=== PATIENT | male | born 1960 | race Caucasian/White ===

== ENCOUNTER 2017-11-19 10:09 | Inpatient (IN) ==
[2017-11-19] MEDS ORDERED: Heparin 10,000 UNITS/10 ML Vial (for IV use) IV.PUSH STA (10:31)
[2017-11-19] MEDS ORDERED: Sod Chloride 0.9% Inj 1,000 ML IV.SIG SCH (10:45)
--- NOTE | 2017-11-19 10:47 | XR ---
EXAM DATE: 11/19/2017 10:41 AM EDT AGE/SEX: 57 years / Male INDICATIONS: STEMI ALERT. CLINICAL DATA: This is the patient's initial encounter. Patient reports that signs and symptoms have been present for 1 day and indicates a pain score of 5/10. MEDICAL/SURGICAL HISTORY: . Unable to obtain. . Unable to obtain. COMPARISON: No prior exams available for comparison. FINDINGS: Cardiac silhouette is mildly enlarged. Vasculature is satisfactory. There is slight diffuse interstit ial prominence which may be chronic. No evidence of focal alveolar consolidation or pleural effusion. CONCLUSION: Fairly well compensated mild cardiomegaly Electronically signed by: Alessandro Shen MD 11/19/2017 10:45 AM EDT
--- NOTE | 2017-11-19 10:50 | ED ---
HPI General Chief complaint: Chest Pain Stated complaint: sob/pain upper jaw/back/rt arm Time Seen by Provider: 11/19/17 10:31 Source: patient Mode of arrival: ambulatory Limitations: no limitations History of Present Illness HPI narrative: 57yo M with PMH of HTN and cig smoking here with c/o chest pain since yesterday. Chest pain is now radiated to bilateral neck and associated with sob. Denies any fever, n/v, abdominal pain, focal weakness or numbness. Pt took full dose aspirin yesterday. Denies any history of [place]. Related Data Home Medications Medication Instructions Recorded Confirmed Unable to Obtain Home Meds 11/19/17 11/19/17 Allergies Allergy/AdvReac Type Severity Reaction Status Date / Time No Known Allergies Allergy Uncoded 01/23/12 16:21 Review of Systems ROS: all other systems reviewed are negative [facility] Medical History Medical History Hypertension (Acute) Social History Social History Substance History: No History of Abuse Smoking Status: Current every day smoker Tobacco Type: Cigarettes How Often Do You Have a Drink Containing Alcohol: Never Recent Travel in [facility] within the Last 8 Weeks: No Recent Out of Country Travel within the Last 8 Weeks: No Immunization History Tetanus Immunization: Unable to Assess Hx Influenza Vaccine This Season: Unable to Assess Exam Narrative Exam Narrative: GENERAL: 57yo M in mild distress. SKIN: Focused skin assessment warm/dry. HEAD: Atraumatic. Normocephalic. EYES: Pupils equal and round. No scleral icterus. No injection or drainage. ENT: No nasal bleeding or discharge. Mucous membranes pink and moist. NECK: Trachea midline. No JVD. CARDIOVASCULAR: Regular rate and rhythm. No murmur appreciated. RESPIRATORY: No accessory muscle use. Clear to auscultation. Breath sounds equal bilaterally. GASTROINTESTINAL: Abdomen soft, non-tender, nondistended. MUSCULOSKELETAL: No obvious deformities. No clubbing. No cyanosis. No edema. NEUROLOGICAL: Awake and alert. No obvious cranial nerve deficits. Motor grossly within normal limits in all extremities. Sensation intact and equal. Normal speech. PSYCHIATRIC: Appropriate mood and affect; insight and judgment normal. Course Initial Documented Vital Signs Temperature 98.6 F 11/19/17 10:15 Pulse Rate 102 H 11/19/17 10:15 Respiratory Rate 20 11/19/17 10:15 Blood Pressure 114/68 11/19/17 10:15 Pulse Oximetry 95 11/19/17 10:15 Last Documented Vital Signs Temperature 98.6 F 11/19/17 10:15 Pulse Rate 102 H 11/19/17 10:15 Respiratory Rate 20 11/19/17 10:15 Blood Pressure 114/68 11/19/17 10:15 Pulse Oximetry 98 11/19/17 10:40 Critical Care Time Critical Care Time: Yes Total Critical Care Time: 35 Attestation: Aggregate critical care time was 35 minutes. Time to perform other separately billable procedures was not included in the critical care time. My time did not include minutes spent treating any other patients simultaneously or on activities that did not directly contribute to the patient's treatment. The services I provided to this patient were to treat and/or prevent clinically significant deterioration that could result in: cardiovascular collapse or . I provided critical care services requiring my management, as noted below: Chart data review, documentation time, medication orders and management, vital sign assessments/reviewing monitor data, ordering and reviewing lab tests, ordering and interpreting/reviewing x-rays and diagnostic studies, care of the patient and discussion of the patient with the admitting physicians. Medical Decision Making MDM Narrative Medical decision making narrative: 57yo M with chest pain since yesterday that is now more in his bilateral neck. Pt did just come back from flight yesterday but has marked ST elevation in EKG. STEMI alert called and discussed with Dr. Kahn. Pt given aspirin, heparin bolus. Labs reviewed, leukocytosis at 15.9. H/H normal. BUN/creatinine elevated at 29/1.80. CXR showed fairly well compensated mild cardiomegaly. Pt transported emergently to [facility] cardiac agriculture laboratory technician. Differential Diagnosis Differential Diagnosis: STEMI Lab Data Result diagrams: 11/19/17 10:32 11/19/17 10:32 Lab Results 11/19/17 11/19/17 11/19/17 Range/Units 10:32 10:32 10:32 CBC w Diff WBC (4.0-11.0) th/mm3 RBC (4.50-5.90) mil/mm3 Hgb (13.0-17.0) gm/dL Hct (39.0-51.0) % MCV (80.0-100.0) fL MCH (27.0-34.0) pg MCHC (32.0-36.0) % RDW (11.6-17.2) % Plt Count (150-450) th/mm3 MPV (7.0-11.0) fL Neut % (Auto) (16.0-70.0) % Lymph % (Auto) (9.0-44.0) % Meigs % (Auto) (0.0-8.0) % Eos % (Auto) (0.0-4.0) % Baso % (Auto) (0.0-2.0) % Neut # (Auto) (1.8-7.7) th/mm3 Lymph # (Auto) (1.0-4.8) th/mm3 Meigs # (Auto) (0.0-0.9) th/mm3 Eos # (Auto) (0.0-0.4) th/mm3 Baso # (Auto) (0.0-0.2) th/mm3 WBC Differential Differential Comment PT 10.6 (9.8-11.6) sec INR 1.0 Ratio APTT 30.4 H (24.3-30.1) sec Sodium 139 (136-145) meq/L Potassium 4.7 (3.5-5.1) meq/L Chloride 107 (98-107) meq/L Carbon Dioxide 25.3 (21.0-32.0) meq/L Anion Gap 7 (5-15) meq/L BUN 29 H (7-18) mg/dL Creatinine 1.80 H (0.60-1.30) mg/dL Estimated GFR 39 L (>89) mL/min Random Glucose 129 H (74-106) mg/dL Calcium 9.8 (8.5-10.1) mg/dL Magnesium 2.2 (1.5-2.5) mg/dL Total Creatine Kinase 1461 H (39-308) U/L CK-MB (CK-2) 94.5 H (0.5-3.6) ng/mL CK-MB (CK-2) % 6.5 H* (0.0-4.0) % Troponin I Greater than 40.00 H* (0.02-0.05) ng/mL B-Natriuretic Peptide 468 H (0-100) pg/mL Blood Type Antibody Screen MTS Gel Crossmatch 11/19/17 11/19/17 Range/Units 10:32 12:20 CBC w Diff Auto diff final WBC 15.9 H (4.0-11.0) th/mm3 RBC 5.28 (4.50-5.90) mil/mm3 Hgb 16.3 (13.0-17.0) gm/dL Hct 48.1 (39.0-51.0) % MCV 91.2 (80.0-100.0) fL MCH 30.9 (27.0-34.0) pg MCHC 33.9 (32.0-36.0) % RDW 12.6 (11.6-17.2) % Plt Count 184 (150-450) th/mm3 MPV 8.2 (7.0-11.0) fL Neut % (Auto) 86.0 H (16.0-70.0) % Lymph % (Auto) 4.6 L (9.0-44.0) % Meigs % (Auto) 9.2 H (0.0-8.0) % Eos % (Auto) 0.0 (0.0-4.0) % Baso % (Auto) 0.2 (0.0-2.0) % Neut # (Auto) 13.7 H (1.8-7.7) th/mm3 Lymph # (Auto) 0.7 L (1.0-4.8) th/mm3 Meigs # (Auto) 1.5 H (0.0-0.9) th/mm3 Eos # (Auto) 0.0 (0.0-0.4) th/mm3 Baso # (Auto) 0.0 (0.0-0.2) th/mm3 WBC Differential . Differential Comment . PT (9.8-11.6) sec INR Ratio APTT (24.3-30.1) sec Sodium (136-145) meq/L Potassium (3.5-5.1) meq/L Chloride (98-107) meq/L Carbon Dioxide (21.0-32.0) meq/L Anion Gap (5-15) meq/L BUN (7-18) mg/dL Creatinine (0.60-1.30) mg/dL Estimated GFR (>89) mL/min Random Glucose (74-106) mg/dL Calcium (8.5-10.1) mg/dL Magnesium (1.5-2.5) mg/dL Total Creatine Kinase (39-308) U/L CK-MB (CK-2) (0.5-3.6) ng/mL CK-MB (CK-2) % (0.0-4.0) % Troponin I (0.02-0.05) ng/mL B-Natriuretic Peptide (0-100) pg/mL Blood Type A Positive Antibody Screen Negative MTS Gel Crossmatch See Detail Imaging Data Radiologist's impression: Chest X-Ray 11/19/17 10:32 CONCLUSION: Fairly well compensated mild cardiomegaly ECG Data EKG Prior to Arrival: No Attestation: I personally reviewed and interpreted this ECG as follows: Interpretation: EKG showed marked elevation in V2-V6. ST depression in inferior leads. Discharge Plan Discharge Disposition Patient Disposition: 30 Still Patient Discharge Details Diagnosis: ST elevation myocardial infarction (STEMI) Physicians Team ED Provider: Alba Lindo Primary Care Provider: Odilon Hernandez Attending Provider: Osbaldo Kahn Discharge Interventions Interventions: ED Discharge Assessment Last Done: 11/19/17 10:53 Status ED Status: Admitted Patient Discharge Information Discharge Date/Time: 11/19/17 11:00
[2017-11-19 10:51] LABS: Baso % (Auto) 0.2 % (0.0-2.0); Chloride 107 meq/L (98-107); Hematocrit 48.1 % (39.0-51.0); Hemoglobin 16.3 gm/dL (13.0-17.0); Lymph # (Auto) 0.7 th/mm3 (1.0-4.8); Lymph % (Auto) 4.6 % (9.0-44.0); Mean Corpuscular HGB Conc 33.9 % (32.0-36.0); Mean Corpuscular Hemoglobin 30.9 pg (27.0-34.0); Mean Corpuscular Volume 91.2 fL (80.0-100.0); Mean Platelet Volume 8.2 fL (7.0-11.0); Mono # (Auto) 1.5 th/mm3 (0.0-0.9); Mono % (Auto) 9.2 % (0.0-8.0); Neut # (Auto) 13.7 th/mm3 (1.8-7.7); Platelet Count 184 th/mm3 (150-450); Potassium 4.7 meq/L (3.5-5.1); Red Blood Count 5.28 mil/mm3 (4.50-5.90); Red Cell Distribution Width 12.6 % (11.6-17.2); Sodium 139 meq/L (136-145); White Blood Count 15.9 th/mm3 (4.0-11.0)
[2017-11-19 10:54] LABS: Anion Gap 7 meq/L (5-15); Calcium 9.8 mg/dL (8.5-10.1); Carbon Dioxide 25.3 meq/L (21.0-32.0)
[2017-11-19] MEDS ORDERED: fentaNYL Citrate Inj 100 MCG/2 ML Ampul ONE ×3 (10:54→15:00)
[2017-11-19] MEDS ORDERED: Heparin/NS PF Inj 500 ML ONE (10:54)
[2017-11-19 10:55] LABS: Blood Urea Nitrogen 29 mg/dL (7-18); Glucose,Random 129 mg/dL (74-106); Magnesium 2.2 mg/dL (1.5-2.5)
[2017-11-19] MEDS ORDERED: Heparin 10,000 UNITS/10 ML Vial (for IV use) ONE ×2 (10:55→13:06)
[2017-11-19 10:56] LABS: Activated Partial Thrombo Time 30.4 sec (24.3-30.1); Prothrombin Time 10.6 sec (9.8-11.6)
[2017-11-19 10:58] LABS: Glomerular Filtration Rate 39 mL/min (>89)
[2017-11-19] MEDS ORDERED: Lidocaine PF 1% Inj 30 ML Vial ONE (11:05)
[2017-11-19 11:13] LABS: Creatine Kinase 1461 U/L (39-308)
[2017-11-19 11:25] LABS: Creatine Kinase MB 94.5 ng/mL (0.5-3.6)
[2017-11-19 11:31] LABS: CKMB Percent 6.5 % (0.0-4.0)
[2017-11-19] MEDS ORDERED: Tirofiban Inj 12,500 MCG/250 ML PLAST..BAG ONE (11:37)
[2017-11-19] MEDS ORDERED: Sodium Chlor 0.9% Inj 200 ML IV.SIG ONE (12:00)
[2017-11-19] MEDS ORDERED: Artificial Tears Opth Oint 3.5 GM Tube EACH EYE ONE (12:00)
[2017-11-19] MEDS ORDERED: Sodium Chlor 0.9% Inj 500 ML IV.SIG ONE ×2 (12:00)
[2017-11-19] MEDS ORDERED: Phenylephrine/NS 1000 MCG/10ML Syringe IV.PUSH ONE (12:00)
[2017-11-19] MEDS ORDERED: Protamine Sulfate Inj 250 MG/25 ML Vial IV.CONT ONE (12:00)
[2017-11-19] MEDS ORDERED: Nitroglycerin Drip Premix 50 MG/250 ML BOTTLE IV.SIG ONE (12:00)
[2017-11-19] MEDS ORDERED: Heparin - SQ 10,000 UNITS/ML Vial OTHER ONE (12:00)
[2017-11-19] MEDS ORDERED: Dexmedetomidine Inj 200 MCG/2 ML Vial IV.CONT ONE (12:00)
[2017-11-19] MEDS ORDERED: Calcium Chloride Inj 1 GM/10 ML Syringe IV.CONT ONE (12:00)
[2017-11-19] MEDS ORDERED: Norepinephrine Inj 4 MG/4 ML Ampul IV.CONT ONE (12:00)
[2017-11-19] MEDS ORDERED: Heparin - SQ 10,000 UNITS/ML Vial ONE (12:24)
[2017-11-19] MEDS ORDERED: ceFAZolin 2 GM Premix Inj 2 GM/50 ML PIGGYBACK IV.SIG ONE (12:24)
[2017-11-19] MEDS ORDERED: Insulin Regular (For Infusion) 100 UNIT in Sodium Chlor 0.9% Inj 99 ML IV.CONT PRN ×2 (12:42→17:13)
[2017-11-19] MEDS ORDERED: Sodium Chloride 0.9% Irr Bot 500 ML, ceFAZolin Inj 500 MG IRRIGATION SCH ×2 (12:45)
[2017-11-19] MEDS ORDERED: Sodium Chlor 0.9% Inj 77.5 ML, Papaverine Inj 60 MG, Nitroglycerin Inj 100 MCG, dilTIAZ... IRRIGATION SCH ×3 (12:45)
--- NOTE | 2017-11-19 13:03 | P.CON ---
History of Present Illness Service: CT Surgery Consult date: 11/19/17 Requesting Physician: Osbaldo Kahn Reason for Consult: STEMI, 2 vessel CAD Primary Care Provider: Odilon Hernandez MD Family Provider: Odilon Hernandez MD Chief Complaint: chest pain History of Present Illness: 57y/o male presents to the ED with chest pain. ECG shows st elevation in LAD distribution. STEMI alert called and he was emergently taken to the dental laboratory technology teacher. LHC shows occluded LAD and significant disease in diagonal and LCx distribution. The LAD could not be crossed and I was called emergently for consideration of emergency CABG. Review of Systems unobtainable due to mental condition PMFSH - History History Provided By: Patient - Medical History Medical History: Medical History (Last Updated 11/19/17 @ 10:45 by Sharda Hauser RN) Hypertension - Tobacco History Tobacco Use In Past 30 Days: Yes Smoking Status: Current every day smoker Tobacco Type: Cigarettes - Alcohol History How Often Do You Have a Drink Containing Alcohol: Never - Substance Use History Substance History: No History of Abuse - Travel History Recent Travel in the [place] Within the Last 8 Weeks: No Recent Travel Out of the Country Within the Last 8 Weeks: No - Immunization History Tetanus Immunization: Unable to Assess Hx Influenza Vaccine This Season: Unable to Assess Medications and Allergies Active Medications: Active Medications Sodium Chloride 77.5 ml/Papaverine HCl 60 mg/Nitroglycerin 100 mcg/Diltiazem HCl 100 mg 0 ml IRRIGATION MOLDING MANAGER KATHIA Stop: 11/25/17 12:42 Sodium Chloride 500 ml/ (Cefazolin Sodium 500 mg) 0 ml IRRIGATION MOLDING MANAGER [facility] Stop: 11/25/17 12:42 Sodium Chloride (Ns Inj) 1,000 mls @ 30 mls/hr IV.SIG .Q24H KATHIA Stop: 11/20/17 10:44 Last Admin: 11/19/17 10:38 Dose: 30 mls/hr Insulin Human Regular 100 unit (/ Sodium Chloride) 100 mls @ 3 mls/hr IV.CONT TITRATE PRN; Protocol PRN Reason: See Protocol Sodium Chloride (Ns Flush) 2 ml IV.FLUSH PRN PRN PRN Reason: FLUSH AFTER USING IV ACCESS Allergies Allergy/AdvReac Type Severity Reaction Status Date / Time No Known Allergies Allergy Uncoded 01/23/12 16:21 Home Medications Medication Instructions Recorded Confirmed Type Unable to Obtain Home Meds 11/19/17 11/19/17 History Physical Exam Vital signs: Vital Signs 11/19/17 10:15 11/19/17 10:25 11/19/17 10:40 Temperature 98.6 F Pulse Rate 102 H Respiratory Rate 20 Blood Pressure 114/68 Pulse Oximetry 95 100 98 Intake & Output 11/18/17 11/19/17 11/19/17 18:59 06:59 18:59 Weight 109 kg - Constitutional moderate distress - Routine HEENT Exam Head: Present: normocephalic, atraumatic Eye: Present: EOMI, PERRL - Routine Neck Exam Present: supple - Routine Respiratory Exam Present: decreased breath sounds - Routine Cardiovascular Exam Present: RRR - Routine Abdominal Exam Present: soft, normoactive bowel sounds - Routine Extremities Exam Present: pulses intact - Routine Skin Exam Present: intact - Routine Neurological Exam Present: alert, oriented X3, CN II-XII intact Assessment and Plan - Assessment (1) CAD (coronary artery disease) Code(s): I25.10 - Atherosclerotic heart disease of [place] coronary artery without angina pectoris Status: Acute (2) ST elevation myocardial infarction (STEMI) Code(s): I21.3 - ST elevation (STEMI) myocardial infarction of unspecified site Status: Acute (3) Hypertensive kidney disease with stage 3 chronic kidney disease Code(s): I12.9 - Hypertensive chronic kidney disease with stage 1 through stage 4 chronic kidney disease, or unspecified chronic kidney disease; N18.3 - Chronic kidney disease, stage 3 (moderate) Status: Acute - Plan Recommend emergency CABG to especially restore flow in the LAD. Risks of CABG in this situation are as follows: Risk Model and Variables - STS Adult Cardiac Surgery Database Version 2.81 RISK SCORES About the STS Risk Calculator Procedure: CAB Only Risk of Mortality: 1.92% Morbidity or Mortality: 21.32% Long Length of Stay: 6.619% Short Length of Stay: 44.609% Permanent Stroke: 0.945% Prolonged Ventilation: 15.105% DSW Infection: 0.704% Renal Failure: 5.976% Reoperation: 6.932% Plan for emergent CABG. (2) ST elevation myocardial infarction (STEMI) Qualifiers: Involved coronary artery: unspecified coronary artery Qualified Code(s): I21.3 - ST elevation (STEMI) myocardial infarction of unspecified site
[2017-11-19] MEDS ORDERED: Cardioplegic Irr Soln 2,000 ML IRRIGATION ONE (13:04)
[2017-11-19] MEDS ORDERED: Albumin Human 25% Inj 50 ML IV.SIG ONE (13:05)
[2017-11-19] MEDS ORDERED: Calcium Chloride Inj 1 GM/10 ML Syringe ONE (13:06)
[2017-11-19] MEDS ORDERED: Potassium Chlor 40 mEq Premix 80 MEQ/200 ML PIGGYBACK ONE (13:06)
--- NOTE | 2017-11-19 13:12 | MA ---
cc: Osbaldo Kahn MD DATE: 11/19/2017 PROCEDURES: Emergency left heart catheterization, selective coronary angiography, left ventriculography, unsuccessful percutaneous coronary intervention on a totally occluded proximal LAD. PROCEDURE NOTE: The patient was brought to the cardiac catheterization laboratory under emergency conditions in the midst of a suspected acute anterior ST elevation myocardial infarction. The right groin was prepped and draped as per policy and anesthetized with 1% lidocaine. Arterial access was obtained via the right femoral artery and a 6-Dominican sheath placed. Coronary arteriography was performed using 6-Dominican Didi, left 4.0 and right progressive catheters. Left ventriculography was done using a standard 6-Dominican pigtail. Attempted unsuccessful percutaneous intervention on the LAD was done as described below. There were no apparent immediate complications. HEMODYNAMIC DATA: Left ventricle 105 with an end diastolic pressure of 40, aorta 106/68 with a mean of 85. There was no significant transvalvular aortic gradient on pullback of the pigtail catheter. CORONARY ARTERIOGRAPHY: The left main has minimal luminal irregularities. The very proximal LAD has hazy, somewhat ulcerated up to 80% disease. Right after the takeoff of the first septal quality technician fiberglass, the proximal LAD is totally occluded. A small to medium-sized diagonal arising from the very proximal LAD has diffuse up to 70% disease in its mid portion. The left circumflex is a medium-sized vessel giving rise to a tiny first obtuse marginal and what appears to be a medium-sized branching second obtuse marginal. The second obtuse marginal is totally occluded in its mid portion with faint filling of the distal branches. The right coronary artery is a large dominant vessel, which is diffusely diseased probably up to 10% severity. There is suggestion that there is total occlusion of the very distal right coronary branches. Scant collaterals to the LAD are seen. LEFT VENTRICULOGRAPHY: Contrast injection of the left ventricle is somewhat suboptimal. There does appear to be an area of apical akinesis. Ejection fraction is roughly estimated at 35-40%. PERCUTANEOUS CORONARY INTERVENTION DESCRIPTION: Heparin 70 units/kg was administered. Using a 6-Dominican XB 3.5-guiding catheter the ostium of the left main was reengaged. We attempted to cross the total occlusion in the proximal LAD with a Prowater wire and then a Whisper wire without success. We then advanced a 2.0 x 10-mm Euphora balloon catheter to the distal tip of the Whisper wire to provide backup support. We were again unsuccessful in crossing the total occlusion. The wire seems to go into a more second diagonal direction. At this point, consultation was obtained from Dr. Jennifer Rojas for consideration of coronary artery bypass grafting. As the operating room was being mobilized, we attempted further to cross the total occlusion with a Whisper wire again and then a Fielder wire, again without success. The wire continued to traverse in a more diagonal direction. The guidewires were removed, as was the guiding catheter. CONCLUSIONS: 1. Severe 3-vessel coronary artery disease. 2. Right dominant system. 3. Status post unsuccessful percutaneous coronary intervention attempt on the proximal LAD due to inability to wire the total occlusion. 4. Suboptimal left ventriculogram. Probable small to moderate-sized area of apical akinesis. Ejection fraction is very roughly estimated at 35-40%. DISCUSSION: The patient will be referred for urgent coronary artery bypass grafting. Bypass grafts could be considered to the LAD, diagonal, and obtuse marginal. MD DAISY Conde/jae , 12:32 PM , 12:42 PM MTDTaras
--- NOTE | 2017-11-19 13:18 | CATHPROC ---
FNZ HIS Report Study Information Study Number Admission Scheduled Start Study Start [id number] Nov 19 2017 10:09AM 11/19/2017 Nov 19 2017 10:46AM [place] Service Cath Endovascular Study Admit Source Facility Department Transfer in from another acute care facility [facility] - Printing Machine Mechanic Physician and Clinical Staff Initial Osbaldo Mcrae Applied Behavior Science Specialist Samy Sanz RN Applied Behavior Science Specialist Francisco Childs RN Other cathlab, cathlab Recorder Lavelle Lima RCIS(BS) Yu Vega RCIS TECHGentry Procedures Performed Procedure Location (Site) Vessel Name Angiogram LV LV Ventricle Coronary Angiograms LCA Left Coronary Coronary Angiograms RCA Right Coronary L Heart Cath Wire insertion Fem Art (right) Femoral Art Wire insertion LAD Prox Left Coronary Equipment Time Machine Bunch Maker Description Size Mfg Part Number Used/Scraped [id number] 12:14 [employer] WIRE, ASAHI FIELDER XT 190CM 180CM Used *[id number] 11:37 [employer] WIRE, ASAHI PROWATER 180CM 180CM Used *[id number] WIRE, WHISPER W/HYDROCOAT [id number] 11:42 [employer] 190CM Used 190CM *[id number] TRANSDUCER, TRUWAVE [id number] 10:47 MOY MCLEOD * Used W/STOCKCOCK *[id number] [id number] *[id number] [id number] *[id number] [id number] *[id number] *[id number] *[id number] 10:47 [employer] BLANKET,WARM AIR CCL * Used *[id number] 10:47 [employer] PACK, CCL CUSTOM * Used *[id number] 10:47 [employer]ure PACER PEN, SKIN DUAL W/ RULER * Used *[id number] 11:45 MED[employer] BALLOON, 2.0 X 10MM EUPHORA 10MM Used *[id number] 10:47 [email or web address] MEDICAL SHEATH, FR6.5 PRELUDE 11CM FR 6.5 038ACT Used *[id number] 10:47 [email or web address] MEDICAL WIRE, 3MMJ .035 180CM 180CM Used *[id number] 10:47 [facility] MANIFOLD, 4 PORT * Used *[id number] 10:47 [employer] OMNIPAQUE, 350 MG, 150ML 150ML [id number] Used 12:02 [employer]ED OMNIPAQUE, 350 MG, 50ML 50ML [id number] Used WIRE, RUNTHROUGH NS FLOPPY 25-1013 12:11 [employer] MEDICAL 300CM Used .014 300CM *[id number] History: Risk Factors Family History of Hypertension Dyslipidemia Previous LA Previous Heart Failure Premature CAD Yes Yes No No No Prior Valve Prior PCI Prior CABG Surgery No No No Cerebrovascular Peripheral Artery Chronic Lung On Dialysis Diabetes Disease Disease Disease No No No No No History: Symptoms/Diagnosis Selection Items Chest pain SOB History: Stress Tests Stress or Imaging Studies Performed No History: Other Disease Selection Items HTN History: Other Current Smoker Method Packs a Day Years Used Pack Years Yes Cigarettes 1 42 42 Labs Hgb (g/dl) Hct (%) WBC (l/cumm) Platelets (thousands) 11.60-17.00 35.00-51.00 4.00-11.00 150.00-450.00 16.3 48.1 15.9 184 Glucose (mg/dl) Creatinine (mg/dl) 74.00-106.00 0.50-1.30 129 1.0 Na (meq/l) K (meq/l) 136.00-145.00 3.50-5.10 139 4.7 INR (PTT:PT) 0.90-1.10 1 Troponin I (ng/ml) CPK-MB (ng/ML) 0.02-0.05 0.50-3.60 40 6.5 Medication Medication Total Dose (Bolus/Oral) Medication Total Dosage/Unit 1% XYLOCAINE 20 mL FENTANYL 100 mcg HEPARIN 6200 units VERSED 3 mg Medications (Bolus/Oral) Medication Time Given Dosage/Unit Administered By Reason VERSED 11/19/2017 11:29:00 AM 1 mg Samy Sanz 1 mg VERSED given in lab by Samy Sanz, RN in Left Antecubital via Peripheral IV. Ordered by Osbaldo Kahn. 1% XYLOCAINE 11/19/2017 11:29:10 AM 20 mL Osbaldo Kahn 20 mL 1% XYLOCAINE given in lab by Osbaldo Kahn in Right Groin via Subcutaneous. FENTANYL 11/19/2017 11:29:45 AM 50 mcg Yvon Samy 50 mcg FENTANYL given in lab by Samy Sanz RN in Left Antecubital via Peripheral IV. Ordered by Glenn. Pamela VERSED 11/19/2017 11:30:09 AM 2 mg Samy Sanz 2 mg VERSED given in lab by Samy Sanz RN in Left Antecubital via Peripheral IV. Ordered by Osbaldo Kahn. HEPARIN 11/19/2017 11:36:04 AM 6200 units Yvon, Samy 6200 units HEPARIN given in lab by Samy Sanz RN in Left Antecubital via Peripheral IV. Ordered by Osbaldo Kahn. FENTANYL 11/19/2017 12:06:33 PM 50 mcg Yvon, Samy 50 mcg FENTANYL given in lab by Samy Sanz RN in Left Antecubital via Peripheral IV. Ordered by Osbaldo Santiago. Medication (Drip) Medication Time Given Dosage/Unit Concentration/Unit Diluent (ml) Solutio n IV Solutions 11/19/2017 11:16:16 AM 0 mL (IV) 500 NaCl .9 Patient arrived on IV Solutions given by david hernandez in Left Antecubital via Peripheral IV. Pump /Drip Flow = 20 ml/hr using NaCl .9. Ordered by Osbaldo Kahn. Initial Case Assessment Cardiovascular HR Rhythm NIBP Chest Pain 98 stemi 138/82 0 Edema Present Skin color Skin None Normal Warm Dry Circulatory - Right Pulses Dorsalis Pedis Femoral 1 2 Scale (0,1,2,3,4,d) Circulatory - Left Pulses Dorsalis Pedis Femoral 1 2 Scale (0,1,2,3,4,d) Neurological State Oriented to time-place- Alert Moves all extremities person Respiration - General Respiration Rate SpO2 (%) (B/min) 15 95 Final Case Assessment Cardiovascular HR Rhythm NIBP Chest Pain 98 stemi 134/77 0 Edema Present Skin color Skin None Normal Warm Dry Circulatory - Right Pulses Dorsalis Pedis Femoral 1 2 Scale (0,1,2,3,4,d) Circulatory - Left Pulses Dorsalis Pedis Femoral 1 2 Scale (0,1,2,3,4,d) Neurological State Oriented to time-place- Alert Moves all extremities person Respiration - General Respiration Rate SpO2 (%) (B/min) 15 95 Chronological Log Time Study Chronological Log 10:30:02 Emergency Room notified that Printing Machine Mechanic is ready. 11:16:02 Patient arrived via Bed. 11:16:03 Patient Name, D.O.B, / Armband Verified By R.N. 11:16:03 Consent signed by the physician and the patient and verified by the Printing Machine Mechanic staff. 11:16:04 Pre-op and post- op instructions given; patient acknowledges understanding of instructions. 11:16:06 Presedation assessment performed by Printing Machine Mechanic RN. 11:16:09 Patient has been NPO for More than 6Hrs. 11:16:09 Skin Breakdown- none per patient 11:16:10 Patient Warmer Placed on the Table. 11:16:10 Rose Marie Prominences Protected 11:16:15 A # 18 IV was noted in the Antecubital (left). Grade = 0 Patient arrived on IV Solutions given by cathlab, cathlab in Left Antecubital via Peripheral IV . Pump/Drip Flow = 20 11:16:16 ml/hr using NaCl .9. Ordered by Osbaldo Kahn. 11:16:17 History and physical on the chart or being dictated. Vitals capture started with the following parameters, Patient=Adult, Interval=5 min, Initial Pr nxdjna=487 mmHg, 11:17:29 Deflation Rate=5 mmHg, Cuff placed on Left Arm 11:18:10 UB=317 bpm, WKII=795/82 mmhg, NnF9=056 %, Resp=15 B/min, Pain=0, Nathanael=10, [place]=2 Assessment: Initial Case, HR=98 BPM, Rhythm=stemi, JIBE=195/82 mmhg, Chest Pain=0, Edema=None, Color=Normal, Skin = Warm, Dry Right Pulses: Sergey Ped=1, Femoral=2 11:19:24 Left Pulses: Sergey Ped=1, Femoral=2 Neurological: State=Alert, Ox3, TONG Respiration: Resp=15 B/min, SpO2=95 % 11:20:30 Reference ECG taken 11:20:34 Bilateral groins prepped with 2% chlorhexidine, and draped after a 3 minute waiting time. 11:21:17 MD paged 11:21:50 MD responded 11:22:42 Pressure channel 1 zeroed. 11:23:05 YQ=884 bpm, NUZK=183/79 mmhg, SpO2=98.0 %, Resp=14 B/min, Pain=0, Nathanael=10, Mon[place]=2 11:26:24 MD arrived. :: Immediate Presedation assesment performed by physician. 11:28:02 XC=841 bpm, GIMR=496/87 mmhg, SpO2=99.0 %, Resp=14 B/min, Pain=0, Nathanael=10, [place]=2 Time Out. Correct patient, correct procedure, correct physician, labs, allergies, and equipment verified with laborer livestock :: team present. Fire risk assesment completed (see hard stop sheet for coding). Time Out Conc urred by MD and individual staff in procedure. 11:29:00 1 mg VERSED given in lab by Samy Sanz RN in Left Antecubital via Peripheral IV. Ordered by Osbaldo Kahn. 11:29:09 Case Start 11:29:10 20 mL 1% XYLOCAINE given in lab by Osbaldo Kahn in Right Groin via Subcutaneous. 11::45 50 mcg FENTANYL given in lab by Samy Sanz RN in Left Antecubital via Peripheral IV. Ord ered by Osbaldo Kahn. 11:30:09 2 mg VERSED given in lab by Samy Sanz RN in Left Antecubital via Peripheral IV. Ordered by Osbaldo Kahn. 11::22 Access site was Right Femoral Artery. ::29 A SHEATH, FR6.5 PRELUDE 11CM FR 6.5 was advanced into the Fem Art (right) using the Didi technique. : Activated Clotting Time Drawn A JL 4.0 INFINITI CATHETER FR 6 was advanced over a wire. OMNIPAQUE, 350 MG, 150ML 150ML was us ed for :43 injections. 11:31:17 The LCA was injected and visualized at various angles. OMNIPAQUE, 350 MG, 150ML 150ML used . : Activated Clotting Time Drawn Recorded Pressure: Ao, HR=71, Condition=Condition 1 11:32:40 (Aorta) Ao 99/69/83 11:33:07 HR=22 bpm, KPYK=265/83 mmhg, SpO2=97.0 %, Resp=14 B/min, Pain=0, Nathanael=10, Mon[place]=2 11:34:12 Catheter was removed A 3DRC INFINITI CATHETER FR 6 was advanced over a wire. OMNIPAQUE, 350 MG, 150ML 150ML was used for 11:34:13 injections. 11:34:48 ACT (Normal Range 90-180) = 185 11:35:17 The RCA was injected and visualized at various angles. OMNIPAQUE, 350 MG, 150ML 150ML used . 11:35:52 Catheter was removed 11:36:04 6200 units HEPARIN given in lab by Samy Sanz RN in Left Antecubital via Peripheral IV. Ordered by Osbaldo Kahn. A XB 3.5 GUIDE CATHETER FR 6 was advanced over a wire. OMNIPAQUE, 350 MG, 150ML 150ML was used for 11:36:30 injections. 11:37:17 A WIRE, ASAHI PROWATER 180CM 180CM was inserted via Fem Art (right). 11:38:08 HR=85 bpm, TGMU=363/80 mmhg, SpO2=97.0 %, Resp=14 B/min, Pain=0, Nathanael=10, Mon[place]=2 11:42:35 A WIRE, WHISPER W/HYDROCOAT 190CM 190CM was inserted via Fem Art (right). 11:43:07 HR=86 bpm, DSOH=865/80 mmhg, SpO2=92 %, Resp=15 B/min, Pain=0, Nathanael=10, Mon[place]=2 11:43:46 Prowater Wire removed A BALLOON, 2.0 X 10MM EUPHORA 10MM was inserted over WIRE, WHISPER W/HYDROCOAT 190CM 190CM via the 11:45:29 Fem Art (right). 11:48:06 HR=56 bpm, BTLR=317/78 mmhg, SpO2=98.0 %, Resp=14 B/min, Pain=0, Nathanael=10, [place]=2 11:53:07 HR=42 bpm, PKTY=469/77 mmhg, SpO2=99.0 %, Resp=15 B/min, Pain=0, Nathanael=10, [place]=2 11:58:08 HR=97 bpm, WUYL=313/85 mmhg, SpO2=97.0 %, Resp=14 B/min, Pain=0, Nathanael=10, Mon[place]=2 12:01:17 Balloon Removed. 12:01:22 Wire removed 12:01:27 Catheter was removed Recorded Pressure: LV, HR=73, Condition=Condition 1 12:01:38 (Left Ventricle) LV 101/20/40 A PIGTAIL STR INFINITI CATHETER FR 6 was advanced over a wire. OMNIPAQUE, 350 MG, 150ML 150ML w as used for 12::38 injections. 12:01:49 The LV was injected at 12 cc/sec for a total of 32. OMNIPAQUE, 350 MG, 50ML 50ML used. 12:03:11 HR=71 bpm, LVLJ=030/74 mmhg, SpO2=96.0 %, Resp=15 B/min, Pain=0, Nathanael=10, Monaco=2 Recorded Pressure: LV, Ao, MB=940, Condition=Condition 1 12:03:34 (Left Ventricle) LV 105/21/41, (Aorta) Ao 106/68/85 12:03:45 Catheter was removed A XB 3.5 GUIDE CATHETER FR 6 was advanced over a wire. OMNIPAQUE, 350 MG, 150ML 150ML was used for :04: injections. 12:06:33 50 mcg FENTANYL given in lab by Samy Sanz, RN in Left Antecubital via Peripheral IV. Ord ered by Osbaldo Kahn. 12:08:08 HR=34 bpm, TWGI=448/88 mmhg, SpO2=81.0 %, Resp=15 B/min, Pain=0, Nathanael=10, Mon[place]=2 12:08:16 A WIRE, WHISPER W/HYDROCOAT 190CM 190CM was inserted via LAD Prox. 12:12:10 A WIRE, RUNTHROUGH NS FLOPPY .014 300CM 300CM was inserted via Fem Art (right). 12:13:14 HR=43 bpm, MNDT=561/75 mmhg, SpO2=85.0 %, Resp=15 B/min, Pain=0, Nathanael=10, [place]=2 12:13:53 Runthrough Wire removed 12:14:18 A WIRE, ASAHI FIELDER XT 190CM 180CM was inserted via Fem Art (right). 12:18:13 HR=54 bpm, GRMV=274/77 mmhg, SpO2=97.0 %, Pain=0, Nathanael=10, [place]=2 12:18:16 Wires removed 12:18:34 Catheter was removed 12:18:39 In the Fem Art (right) the SHEATH, FR6.5 PRELUDE 11CM FR 6.[address] by Osbaldo Kahn. 12:18:48 Case End (Physician broke scrub) Assessment: Final Case, HR=98 BPM, Rhythm=stemi, AFED=727/77 mmhg, Chest Pain=0, Edema=None, Color=Normal, Skin = Warm, Dry Right Pulses: Sergey Ped=1, Femoral=2 12:18:54 Left Pulses: Sergey Ped=1, Femoral=2 Neurological: State=Alert, Ox3, TONG Respiration: Resp=15 B/min, SpO2=95 % 12:19:06 Sterile dressing applied to site 12:19:07 No case complications noted. 12:19:07 Cine recording checked. 12:19:09 Bedside Report will be given. 12:19:12 A Left Heart Cath was performed. 12:23:08 HR=55 bpm, AZDY=668/83 mmhg, SpO2=98.0 %, Pain=0, Nathanael=10, Monaco=2 12:26:20 Activated Clotting Time Drawn 12:27:11 Blood drawn from Artieral sheath for type and cross. 12:28:09 HR=61 bpm, TGGT=464/85 mmhg, SpO2=98.0 %, Pain=0, Nathanael=10, Mon[place]=2 12:32:14 ACT (Normal Range 90-180) = 219 12:33:29 [facility] Patient taken straight to OR for Emergent CABG. End Study - Contrast Media Used In Study Contrast Total Opened (mL) Total Used (mL) Total Wasted (mL) Omnipaque 160 160 0 End Study - Maximum Contrast Load Max Contrast Load (mL) 545.5 End Study - Radiation Exposure Fluoro Time (minutes) 20.3 End Study - Patient Disposition Complications Transferred To Interventional Outcome No Operating Room unsuccessful
--- NOTE | 2017-11-19 13:47 | MB ---
cc: Osbaldo Kahn MD DATE: 11/19/2017 REASON FOR CONSULTATION: ST elevation myocardial infarction. HISTORY OF PRESENT ILLNESS: The patient is a 57-year-old white male with a history of hypertension, tobacco abuse, who was in his usual state of health up until 8:30 p.m. last night when he began to experience bilateral neck and substernal chest discomfort associated with shortness of breath without nausea or diaphoresis. The chest discomfort has persisted in a constant fashion until this morning when he presented to the [facility] at about 10:30. EKG showed evidence for acute anterior ST elevation myocardial infarction, so he was called as a STEMI alert. At this time, he states he has very little chest discomfort, but continues to have fairly severe upper mouth pain, which began last night as well. He continues to have mild to moderate dyspnea at rest. He denies dizziness, syncope, near syncope, palpitations, pedal edema, paroxysmal nocturnal dyspnea. PAST MEDICAL HISTORY: Hypertension. PAST SURGICAL HISTORY: Hernia repair. CARDIAC MEDICATIONS AT HOME: 1. Lisinopril. 2. Two other antihypertensive medications, which he cannot recall. ALLERGIES: NO KNOWN DRUG ALLERGIES. FAMILY HISTORY: There is no significant family history of early myocardial infarction. SOCIAL HISTORY: The patient smokes about a pack of cigarettes per day. He has been smoking since age 15. He denies alcohol abuse. REVIEW OF SYSTEMS: As in history of present illness, otherwise negative or noncontributory. He also denies headache, abdominal pain, melena, dyspepsia, bright red blood per rectum. PHYSICAL EXAMINATION: VITAL SIGNS: Blood pressure 100/64 with a pulse of 70, respirations 20. GENERAL: He is a well-developed, well-nourished white male, in no acute distress. NECK: Jugular venous pressure is normal. Carotid pulses are 2+ bilaterally and without bruits. CHEST: Reveals clear lungs hopkins. CARDIAC: He has a regular rhythm and rate without S3, S4, or murmur. ABDOMEN: He has a soft, nontender abdomen. Bowel sounds are present. There is no definite hepatosplenomegaly. EXTREMITIES: Reveals no clubbing, cyanosis or edema. Peripheral pulses are normal throughout. LABORATORY DATA: Includes WBC 15.9, hemoglobin 16.3, platelets 184. Potassium 4.7, BUN 29, creatinine 1.80. Troponin greater than 40.0. CK 1461. EKG shows sinus rhythm, marked anterior and lateral ST elevation, consider acute injury pattern, anterior and lateral Q-waves consistent with prior infarction. IMPRESSION: Anterior ST elevation myocardial infarction in this 57-year-old white male with a history of hypertension, tobacco abuse. At this time, he continues to have angina-like symptoms associated with marked ST elevation on EKG. On the other hand, I suspect his myocardial infarction began at least yesterday as his troponin is already greater than 40.0 and he has Q-waves across the precordial and high lateral leads. Because of his ongoing angina and ST elevation, he has been recommended emergency cardiac catheterization with possible percutaneous coronary intervention, the risks of which have been explained to him including, but not limited to: , myocardial infarction, stroke, arrhythmia, bleeding, infection, and renal failure. He agrees to proceed. RECOMMENDATIONS: 1. Emergency cardiac catheterization. 2. Eventually start beta dave therapy as his blood pressures allow. Hold off on KIRSTEN inhibitor and angiotensin receptor dave therapy with his renal insufficiency. 3. Check a fasting lipid profile. 4. Daily aspirin. MD DAISY Conde/chalo , 12:41 PM , 12:51 PM MELVIN
--- NOTE | 2017-11-19 15:24 | P.PNCV ---
- Note Subjective/Hospital Course: 57-year-old white male with a history of hypertension, tobacco abuse, who was in his usual state of health up until 8:30 p.m. last night when he began to experience bilateral neck and substernal chest discomfort associated with shortness of breath without nausea or diaphoresis. The chest discomfort has persisted in a constant fashion until this morning when he presented to the [place] [facility] at about 10:30. EKG showed evidence for acute anterior ST elevation myocardial infarction, so he was called as a STEMI alert. At this time, he states he has very little chest discomfort, but continues to have fairly severe upper mouth pain, which began last night as well. He continues to have mild to moderate dyspnea at rest. cath report : 1. Severe 3-vessel coronary artery disease, Right dominant system, Status post unsuccessful percutaneous coronary intervention attempt on the proximal LAD due to inability to wire the total occlusion, Suboptimal left ventriculogram. Probable small to moderate-sized area of apical akinesis. Ejection fraction is very roughly estimated at 35-40%. 11/19 for emergent surgery Objective: Vital Signs - 24 hr 11/19/17 10:15 11/19/17 10:25 11/19/17 10:40 Temperature 98.6 F Pulse Rate 102 H Respiratory Rate 20 Blood Pressure 114/68 Pulse Oximetry 95 100 98 Labs: Laboratory Results - last 12 hr 11/19/17 11/19/17 11/19/17 10:32 10:32 10:32 CBC w Diff WBC RBC Hgb Hct MCV MCH MCHC RDW Plt Count MPV Neut % (Auto) Lymph % (Auto) Newberry % (Auto) Eos % (Auto) Baso % (Auto) Neut # (Auto) Lymph # (Auto) Newberry # (Auto) Eos # (Auto) Baso # (Auto) WBC Differential Differential Comment PT 10.6 INR 1.0 APTT 30.4 H Sodium 139 Potassium 4.7 Chloride 107 Carbon Dioxide 25.3 Anion Gap 7 BUN 29 H Creatinine 1.80 H Estimated GFR 39 L Random Glucose 129 H Calcium 9.8 Magnesium 2.2 Total Creatine Kinase 1461 H CK-MB (CK-2) 94.5 H CK-MB (CK-2) % 6.5 H* Troponin I Greater than 40.00 H* B-Natriuretic Peptide 468 H Blood Type Antibody Screen MTS Gel Crossmatch 11/19/17 11/19/17 10:32 12:20 CBC w Diff Auto diff final WBC 15.9 H RBC 5.28 Hgb 16.3 Hct 48.1 MCV 91.2 MCH 30.9 MCHC 33.9 RDW 12.6 Plt Count 184 MPV 8.2 Neut % (Auto) 86.0 H Lymph % (Auto) 4.6 L Newberry % (Auto) 9.2 H Eos % (Auto) 0.0 Baso % (Auto) 0.2 Neut # (Auto) 13.7 H Lymph # (Auto) 0.7 L Newberry # (Auto) 1.5 H Eos # (Auto) 0.0 Baso # (Auto) 0.0 WBC Differential . Differential Comment . PT INR APTT Sodium Potassium Chloride Carbon Dioxide Anion Gap BUN Creatinine Estimated GFR Random Glucose Calcium Magnesium Total Creatine Kinase CK-MB (CK-2) CK-MB (CK-2) % Troponin I B-Natriuretic Peptide Blood Type A Positive Antibody Screen Negative MTS Gel Crossmatch See Detail Result Diagrams: 11/19/17 10:32 11/19/17 10:32 - Plan (2) ST elevation myocardial infarction (STEMI) (2) ST elevation myocardial infarction (STEMI) Qualifiers: Involved coronary artery: unspecified coronary artery Qualified Code(s): I21.3 - ST elevation (STEMI) myocardial infarction of unspecified site
--- NOTE | 2017-11-19 15:52 | P.DCO ---
- Diagnosis (2) ST elevation myocardial infarction (STEMI) - Speech Therapy Instructions: Heart and Vascular Surgery patients *Special attention to sternal dressing Mandatory frequency Assess and evaluation, 4 days in a row The next week 3X week 2 times a week for 4 weeks 1 time a week for 5 weeks Schedule Heart and Vascular patients for full 60 day certification period Initial visit Review Open Heart Surgery Discharge Instructions (Sternal precautions, Activity, Elastic hose, Incision care, Driving, Incentive spirometry, Smoking, [place], Work and other) Need Betadine to paint incision Medication reconciliation Importance of follow up care/ check on appointments Make calendar record temperature daily When to call [facility] at Home nurse, review instructions, phone list Incentive Spirometry, demonstration Visit 1- Begin discharge instruction for patient family and/ or caregiver using teach back method- Signs and symptoms of infection Disease characteristics Medicines and side effects Foods and nutrition/ appetite Infection control/ hand washing/ hygiene Visit 2- Continue teaching Discharge instructions- include additional information on smoking cessation , sternal dressing (sternal vac) Visit 3- Continue teaching- Cough and deep breathing, incision monitoring. Choose my plate Visit 4- Continue teaching- Discuss limitations Discuss how they are feeling Discuss progress toward goals Remaining visits- continue teaching and monitoring For any questions please call : Saturday 8am-5pm Heart & Vascular Surgery Office ( Dr. Yañez & Dr. Rojas), After Hours / Nights (5pm -8am) Weekends and Holidays Please call [facility] Unit ([facility]) Charge Nurse PREVENA Single Use Negative Wound Therapy System Caregiver Instruction Sheet 1. A Prevena dressing system was applied to the chest incision during surgery , to promote wound healing. It works via a suction device (negative pressure wound therapy) to remove low to moderate levels of exudate (drainage) and infectious materials. We recommend that the device stay in place for up to seven days, from day of surgery. 2. Day of Surgery____/ Day of Removal ___/ 3. The dressing should only be removed by a health healthcare technician. Please arrange removal of device to coincide with Home Health visit and or with Nursing staff at Rehab 4. If skin reddening or irritation of skin occurs, or excessive drainage, please notify the Cardiovascular Surgeons office at [phone]. 5. Light showering is permissible; however the pump should be disconnected and placed in safe location, where it will not get wet. The dressing should not be exposed to direct spray or submerged in water. No bath tub / shower only. Ensure the end of the tubing attached to the dressing is facing down so that water does not enter the top of the tube. 6. To remove Prevena dressing: press purple button to turn off device / remove the suction. Then disconnect the tubing from the pump. The fixation strips should be stretched away from the skin and the dressing lifted at one corner and peeled back until it has been fully removed. 7. After removal, it is ok to shower daily using liquid dial soap and clean wash cloth, rinse and pat dry, and leave incision open to air dry. For any concerns regarding Prevena dressing, and or wounds, please contact Sarah Lipscomb, patient navigator at [phone] or notify the Cardiovascular Surgeons office at [phone]. Incentive spirometry Q1 hr x 10, while awake, also use acapella device hourly whole awake Sternal Breast Bone Precautions: NO pushing or pulling, ( pt must use sternal pillow to support chest with all activities and with coughing ( takes up to 3 months breast bone to heal ) Daily incision care: ok to shower daily, no tub bath. Wash all incisions with liquid dial soap, clean wash cloth to each site, rinse and pat dry. Observe for any signs of infection, such as drainage which is dark yellow, ramires, green or foul smelling. Immediately report to the surgeon any drainage from the chest incision, or legs, and for any abnormal drainage from the chest tube sites. Notify surgeon if any temp >101.5 degrees F. When specialty dressing removed/ or if you do not have one, continue to shower daily as above, then rinse and pat incision dry and paint with betadine daily x 5 days. Allow steri strips to fall off if you have any. Avoid lotions, creams, salves, oils, etc. for the first month Please see attached forms for additional instructions regarding post Open Heart specialty wound vacuum dressings. ZAINA or Prevena , Dressing to be removed by Nursing staff on __11/26/[address] Rojas patients , please obtain CBC, BMP, PA & Lat CXR in 2 weeks, results to Dr. Rojas ( prescription will be given) ( ) (Tele: [phone]) , F/U appointment: as per [facility] instructions: PCP in 2 weeks, CV surgeon 2 weeks, [employer] 3-4 weeks For any questions regarding incisions/ dressing / meds / post op care or above Symptoms, Saturday 8am-5pm Heart & Vascular Surgery Office ( Dr. Yañez & Dr. Rojas), After Hours / Nights (5pm -8am) Weekends and Holidays Please call [facility] (CIC) Charge Nurse - Certification I have seen patient Lamonte Johnson on 11/19/17. My clinical findings support the need for the requested home health care services because: Deconditioned with increased weakness I certify that my clinical findings support that this patient is homebound because: Post-op weakness (2) ST elevation myocardial infarction (STEMI) Qualifiers: Involved coronary artery: unspecified coronary artery Qualified Code(s): I21.3 - ST elevation (STEMI) myocardial infarction of unspecified site
[2017-11-19] MEDS ORDERED: Dextrose 50% in Water 50 ML Vial IV.PUSH PRN (17:13)
[2017-11-19] MEDS ORDERED: Calcium Chloride Inj 1 GM/10 ML Syringe IV.PUSH PRN (17:13)
[2017-11-19] MEDS ORDERED: RESP: Racemic Epinephrine 2.25% 0.5 ML Neb NEB PRN (17:13)
[2017-11-19] MEDS ORDERED: Calcium Chloride Inj 1 GM in Sodium Chlor 0.9% Inj 100 ML IV.SIG PRN (17:13)
[2017-11-19] MEDS ORDERED: Potassium Chlor 20 mEq Premix 20 MEQ/100 ML PIGGYBACK IV.SIG PRN ×3 (17:13)
[2017-11-19] MEDS ORDERED: Post-op Orders (for Pharmacy) OTHER STA (17:13)
[2017-11-19] MEDS ORDERED: Magnesium Sulfate Inj 2 GM in Sodium Chlor 0.9% Inj 96 ML IV.SIG PRN ×4 (17:13)
[2017-11-19] MEDS ORDERED: Metoprolol Inj 5 MG/5 ML Vial IV.PUSH PRN (17:13)
[2017-11-19] MEDS ORDERED: Albumin Human 5% Inj 250 ML IV.SIG PRN (17:13)
[2017-11-19] MEDS ORDERED: hydrALAZINE HCl Inj 20 MG/ML Vial IV.PUSH PRN (17:13)
--- NOTE | 2017-11-19 17:28 | P.OP ---
- Preoperative Diagnosis (1) ST elevation myocardial infarction (STEMI) (2) CAD (coronary artery disease) - Postoperative Diagnosis (1) ST elevation myocardial infarction (STEMI) (2) CAD (coronary artery disease) Date of procedure: 11/19/17 Procedure: Emergency CABG x 3 GO to LAD - fair SVG to OM - poor SVG to D1 - poor EVH DUNIA Anesthesia: CECILIA Surgeon: Jennifer Rojas MD Clam Shovel Operator: Ivanna Andrade Pathology: other (left internal mammary lymph node) Operation and Findings: The patient was taken to the OR emergently due to STEMI and inability to open LAD. The risks, benefits, complications, treatment options, and expected outcomes were discussed with the patient. The possibilities of reaction to medication, pulmonary aspiration, perforation of viscus, bleeding, recurrent infection, the need for additional procedures, failure to diagnose a condition, and creating a complication requiring transfusion or operation were discussed with the patient. The patient concurred with the proposed plan, giving informed consent. The site of surgery properly noted/marked. The patient was taken to Operating Room, identified as @NAME@ and the procedure verified as Emergency CABG, EVH, DUNIA. A Time Out was held and the above information confirmed. Standard monitoring lines and Boland catheter were placed. General anesthesia was induced. The patient was prepped and draped in a sterile fashion. A median sternotomy was performed and electrocautery was used to obtain hemostasis. The left internal mammary artery was procured as a pedicle from the 7th rib to the 1st rib in the usual manner. Simultaneously left greater saphenous vein was procured from the left leg using a minimally invasive endoscopic technique. The vein was prepared for anastomosis and the leg wound was irrigated and closed in 2 layers. The pericardium was opened and a pericardial sling was created using interrupted 0 silk sutures. The patient was heparinized for cardiopulmonary bypass and the distal mammary pedicle was instrumented for anastomosis. The heart was instrumented for cardiopulmonary bypass in the usual manner. Antegrade blood cardioplegia was employed. The patient was placed on cardiopulmonary bypass. An aortic cross-clamp was applied and the heart was arrested using cold blood cardioplegia. Antegrade cardioplegia was administered after he each anastomosis. After adequate arrest, The OM1 was opened with a [place]ka blade and found to be a 1 millimeter poor target with diffuse disease. Saphenous vein was approximated to the OM1 artery using a running 7 0 Prolene suture. The graft was measured for length and orientation and the proximal anastomosis was constructed to the ascending aorta using a running 5 0 Prolene suture after creating an aortotomy with a 5 millimeter punch. The 1st diagonal artery was then opened with a [place] blade and found to be a 1 millimeter diffusely diseased poor target. Saphenous vein was approximated to the D1 artery using a running 7 0 Prolene suture. The graft was measured for length and orientation and was suspended from the pericardium. The distal LAD was opened with a [place] blade and found to be a 1.5 millimeter fair target. The left internal mammary artery was approximated to the LAD using a running 7 0 Prolene suture. The pedicle was attached to the epicardium using interrupted 5 0 silk suture. The patient was systemically rewarmed and received a hotshot dose of warm blood cardioplegia. The aorta was vented and the proximal anastomosis to the D1 graft was accomplished using a running 5 0 Prolene suture after creating an aortotomy was a 5 millimeter punch. The cross-clamp was removed and all proximal and distal anastomoses were examined for hemostasis. The patient was weaned from cardiopulmonary bypass. Protamine was given. There was no adverse reaction. Decannulation was carried out without incident. Wound was checked for hemostasis which was obtained using electrocautery. A 36 Surinamese mediastinal and 32 Surinamese left pleural chest tubes were placed and secured to the skin with 0 silk suture. The sternum was closed with stainless steel wire. The fascia was closed with 1. PDS. The subcutaneous tissue was closed using a running 2-0 Vicryl suture. The skin was closed with 4-0 Monocryl. Sterile dressings were placed. At the end of the operation, all sponge, instruments, and needle counts were correct. The patient was transferred to the CVICU in stable condition. Findings: Diffuse CAD, infarct zone noted distal anteroseptal LV with edema XC: 57 min CPB: 70 min Drains: mediastinal x 1 pleural x 1 Complications: none Disposition: to CVICU in stable condition
--- NOTE | 2017-11-19 18:38 | XR ---
EXAM DATE: 11/19/2017 6:29 PM EDT AGE/SEX: 57 years / Male INDICATIONS: Post op CABG. CLINICAL DATA: This is the patient's initial encounter. Patient reports that signs and symptoms have been present for 1 day and indicates a pain score of Nonresponsive. MEDICAL/SURGICAL HISTORY: Non-responsive. Non-responsive. COMPARISON: [facility], CHEST 1V SINGLE AP, 11/19/2017. . FINDINGS: A single AP portable supine view of the chest was obtained and demonstrates the patient is status pos t interval median sternotomy. An endotracheal tube is present with the tip approximately 2 cm above t he oralia. A nasogastric tube has been placed and is seen coursing through the esophagus the stomach. There is a left-sided chest tube in place with no pneumothorax. There is a left subclavian central v enous line with the tip projected over the superior vena cava. The heart size is mildly prominent. Ne w hazy opacity is present in the perihilar regions and both lung bases. There is no distinct effusion . CONCLUSION: 1. Status post median sternotomy for bypass grafting procedure. 2. Endotracheal tube and nasogastric tube place. 3. Central line and left-sided chest tube with no pneumothorax. 4. Cardiomegaly with new perihilar and bibasilar opacities which most characteristic of mild pulmona ry edema. Electronically signed by: Surya Rosario MD 11/19/2017 6:37 PM EDT
--- NOTE | 2017-11-19 18:48 | ECG ---
Date Performed: 11/19/2017 Time Performed: 10:24:43 PTAGE: 57 years EKG: Sinus rhythm POSSIBLE LEFT ATRIAL ENLARGEMENT ANTEROLATERAL MYOCARDIAL INFARCTION ACUTE GA NO PREVIOUS TRACING DOCTOR: Osbaldo Kahn Interpretating Date/Time 11/19/2017 18:47:13
[2017-11-19] MEDS ORDERED: Calcium Chloride Inj 1 GM/10 ML Syringe IV.PUSH ONE (19:00)
[2017-11-19] MEDS: fentaNYL Citrate Inj 100 MCG/2 ML Ampul IV.PUSH PRN (19:28)
[2017-11-19] MEDS: Amiodarone 200 MG Tablet PO SCH (21:43)
[2017-11-20] MEDS: fentaNYL Citrate Inj 100 MCG/2 ML Ampul IV.PUSH PRN ×4 (02:13→23:35)
[2017-11-20 04:34] LABS: Hematocrit 37.6 % (39.0-51.0); Hemoglobin 13.1 gm/dL (13.0-17.0); Mean Corpuscular HGB Conc 34.8 % (32.0-36.0); Mean Corpuscular Hemoglobin 31.1 pg (27.0-34.0); Mean Corpuscular Volume 89.4 fL (80.0-100.0); Mean Platelet Volume 8.7 fL (7.0-11.0); Platelet Count 126 th/mm3 (150-450); Red Blood Count 4.21 mil/mm3 (4.50-5.90); Red Cell Distribution Width 13.3 % (11.6-17.2)
[2017-11-20 04:56] LABS: Calcium 8.8 mg/dL (8.5-10.1); Magnesium 2.6 mg/dL (1.5-2.5); Potassium 4.1 meq/L (3.5-5.1)
--- NOTE | 2017-11-20 05:41 | XR ---
EXAM DATE: 11/20/2017 5:26 AM EDT AGE/SEX: 57 years / Male INDICATIONS: Post CABG. CLINICAL DATA: This is the patient's subsequent encounter. Patient reports that signs and symptoms h ave been present for 2 days and indicates a pain score of Nonresponsive. MEDICAL/SURGICAL HISTORY: Non-responsive. Non-responsive. COMPARISON: [facility] [place], CHEST 1V SINGLE AP, 11/19/2017. . FINDINGS: A single AP view of the chest demonstrates bilateral patchy airspace disease. Left-sided chest tube w ithout pneumothorax. Mediastinal chest tube seen as well. Status post CABG. Cardiomegaly. The cardio mediastinal contours are unremarkable. Osseous structures are intact. CONCLUSION: 1. Bilateral patchy airspace disease slightly worsened on current study. 2. Left-sided chest tube without pneumothorax. 3. Status post CABG. Electronically signed by: Oziel Warner MD 11/20/2017 5:40 AM EDT
[2017-11-20] MEDS: Amiodarone 200 MG Tablet PO SCH ×3 (05:49→21:18)
--- NOTE | 2017-11-20 08:40 | ECG ---
Date Performed: 11/20/2017 Time Performed: 03:39:44 PTAGE: 57 years EKG: Sinus tachycardia Right axis deviation ANTEROLATERAL INFARCT - POSSIBLY ACUTE Low Q RS voltages in limb leads Abnormal ECG PREVIOUS TRACING : 11/19/2017 10.24 Compared to previous tracing, anterolateral ST elevation kong s decreased. DOCTOR: Osbaldo Kahn Interpretating Date/Time 11/20/2017 08:39:12
[2017-11-20] MEDS ORDERED: Potassium Chlor 10 mEq Premix 10 MEQ/100 ML PIGGYBACK IV.SIG ONE (08:55)
[2017-11-20] MEDS ORDERED: Dextrose 50% in Water 50 ML Vial IV.PUSH PRN (08:56)
[2017-11-20] MEDS ORDERED: Bisacodyl 10 MG Supp RECTAL PRN (08:56)
[2017-11-20] MEDS: Multivitamin/Minerals Therapeutic Tablet PO SCH (09:22)
[2017-11-20] MEDS: Insulin NovoLOG Aspart Correctional Sugar Inj SQ SCH ×4 (10:20→22:29)
--- NOTE | 2017-11-20 11:10 | P.DIET ---
Nutritional Evaluation Screening comments: MDC for diet education s/p CABG x 3 on 11/19. Patient Navigator to provide education. Consult RD if complexities with diet education arise.
[2017-11-20] MEDS: Metoprolol Tartrate 25 MG Tablet PO SCH ×2 (11:27→21:18)
[2017-11-20] MEDS ORDERED: Iohexol 350 MG/ML 100 ML Vial (for Cath Lab) IVCONTRAST ONE (12:40)
--- NOTE | 2017-11-20 12:42 | P.PNCV ---
- Note Subjective/Hospital Course: 57-year-old white male with a history of hypertension, tobacco abuse, who was in his usual state of health up until 8:30 p.m. last night when he began to experience bilateral neck and substernal chest discomfort associated with shortness of breath without nausea or diaphoresis. The chest discomfort has persisted in a constant fashion until this morning when he presented to the [facility] at about 10:30. EKG showed evidence for acute anterior ST elevation myocardial infarction, so he was called as a STEMI alert. At this time, he states he has very little chest discomfort, but continues to have fairly severe upper mouth pain, which began last night as well. He continues to have mild to moderate dyspnea at rest. cath report : 1. Severe 3-vessel coronary artery disease, Right dominant system, Status post unsuccessful percutaneous coronary intervention attempt on the proximal LAD due to inability to wire the total occlusion, Suboptimal left ventriculogram. Probable small to moderate-sized area of apical akinesis. Ejection fraction is very roughly estimated at 35-40%. 11/19 for emergent surgery Emergency CABG x 3, GO to LAD - fair, SVG to OM - poor, SVG to D1 - poor, L EVH 4700cc crystalloid, 750cc cell saver, 1400cc EBL extubated after surgery 11/20 very poor pulm reserve, smokes 2 1/2 pk / day weaning off partial NRB mask gentle diuresis / eval for BB later today will need KIRSTEN prior to dc on ASA statin leave in CVICU today Objective: Vital Signs - 24 hr 11/19/17 18:00 11/19/17 18:05 11/19/17 18:15 Temperature 99.5 F Pulse Rate 106 H 100 H Respiratory Rate 19 28 H 27 H Blood Pressure 120/55 L Pulse Oximetry 88 L 94 L 11/19/17 19:00 11/19/17 19:47 11/19/17 20:00 Temperature 98.8 F Pulse Rate 84 83 90 Respiratory Rate 26 H 22 Blood Pressure 97/50 L Pulse Oximetry 99 99 99 11/19/17 23:00 11/19/17 23:20 11/20/17 00:30 Temperature 100 F H Pulse Rate 96 H Respiratory Rate 26 H 24 Blood Pressure 104/62 Pulse Oximetry 95 97 11/20/17 00:53 11/20/17 02:58 11/20/17 03:00 Temperature 99.5 F Pulse Rate 107 H 110 H Respiratory Rate 34 H 32 H Blood Pressure 134/69 Pulse Oximetry 93 L 89 L 11/20/17 03:10 11/20/17 03:15 11/20/17 03:30 Temperature Pulse Rate Respiratory Rate Blood Pressure Pulse Oximetry 93 L 90 L 95 11/20/17 03:50 11/20/17 06:24 11/20/17 07:00 Temperature 97.9 F Pulse Rate 100 H 95 H Respiratory Rate 28 H 24 Blood Pressure 109/67 Pulse Oximetry 99 11/20/17 08:00 11/20/17 08:20 11/20/17 09:00 Temperature Pulse Rate 100 H 105 H 100 H Respiratory Rate 24 Blood Pressure 128/67 104/62 Pulse Oximetry 98 11/20/17 10:00 11/20/17 11:00 11/20/17 12:17 Temperature 99.1 F Pulse Rate 99 H 96 H 95 H Respiratory Rate 24 Blood Pressure 101/53 L 100/60 107/66 Pulse Oximetry 95 Labs: Laboratory Results - last 12 hr 11/20/17 11/20/17 11/20/17 00:08 01:09 01:58 WBC RBC Hgb Hct MCV MCH MCHC RDW Plt Count MPV Sodium Potassium Chloride Carbon Dioxide Anion Gap BUN Creatinine Estimated GFR POC Glucose 90 101 133 H Random Glucose Calcium Magnesium 11/20/17 11/20/17 11/20/17 04:15 04:15 06:04 WBC 17.0 H RBC 4.21 L Hgb 13.1 D Hct 37.6 L MCV 89.4 MCH 31.1 MCHC 34.8 RDW 13.3 Plt Count 126 L D MPV 8.7 Sodium 143 Potassium 4.1 Chloride 111 H Carbon Dioxide 25.0 Anion Gap 7 BUN 28 H Creatinine 1.90 H Estimated GFR 37 L POC Glucose 99 Random Glucose 109 H Calcium 8.8 D Magnesium 2.6 H 11/20/17 11/20/17 11/20/17 07:51 09:00 10:15 WBC RBC Hgb Hct MCV MCH MCHC RDW Plt Count MPV Sodium Potassium Chloride Carbon Dioxide Anion Gap BUN Creatinine Estimated GFR POC Glucose 125 H 124 H 116 H Random Glucose Calcium Magnesium GENERAL: A&O x 3 SKIN: Warm and dry. prevena dressing to chest , kirsten wrap left leg HEAD: Normocephalic. EYES: No scleral icterus. No injection or drainage. NECK: Supple, trachea midline. No JVD or lymphadenopathy. CARDIOVASCULAR: Regular rate and rhythm without murmurs, gallops, or rubs. RESPIRATORY: Breath sounds equal bilaterally. No accessory muscle use. chest tube to wall suction , no air leak / drained 190cc/ 12 hrs GASTROINTESTINAL: Abdomen soft, non-tender, nondistended. MUSCULOSKELETAL: No cyanosis, or edema. BACK: Nontender without obvious deformity. No CVA tenderness. Result Diagrams: 11/20/17 04:15 11/20/17 04:15 Telemetry: NSR - Plan (1) S/P CABG (coronary artery bypass graft) Plan: ASA, statin , BB start KIRSTEN when BP tolerates diuresis pulm toileting OOB ambulate (2) ST elevation myocardial infarction (STEMI) (4) Hypertensive kidney disease with stage 3 chronic kidney disease Plan: monitor indices, avoid nephrotoxins (5) Tobacco abuse Plan: smoking cessation (2) ST elevation myocardial infarction (STEMI) Qualifiers: Involved coronary artery: unspecified coronary artery Qualified Code(s): I21.3 - ST elevation (STEMI) myocardial infarction of unspecified site
[2017-11-20] MEDS: ALPRAZolam 0.5 MG Tablet PO PRN ×2 (13:17→23:35)
--- NOTE | 2017-11-20 13:29 | P.PNCA ---
Subjective Interval history: Denies angina, dizziness, palpitations. Mild to moderate dyspnea at rest. Slept fairly well. Physical Exam Vital signs: Vital Signs 11/19/17 18:00 11/19/17 18:05 11/19/17 18:15 Temperature 99.5 F Pulse Rate 106 H 100 H Respiratory Rate 19 28 H 27 H Blood Pressure 120/55 L Pulse Oximetry 88 L 94 L 11/19/17 19:00 11/19/17 19:47 11/19/17 20:00 Temperature 98.8 F Pulse Rate 84 83 90 Respiratory Rate 26 H 22 Blood Pressure 97/50 L Pulse Oximetry 99 99 99 11/19/17 23:00 11/19/17 23:20 11/20/17 00:30 Temperature 100 F H Pulse Rate 96 H Respiratory Rate 26 H 24 Blood Pressure 104/62 Pulse Oximetry 95 97 11/20/17 00:53 11/20/17 02:58 11/20/17 03:00 Temperature 99.5 F Pulse Rate 107 H 110 H Respiratory Rate 34 H 32 H Blood Pressure 134/69 Pulse Oximetry 93 L 89 L 11/20/17 03:10 11/20/17 03:15 11/20/17 03:30 Temperature Pulse Rate Respiratory Rate Blood Pressure Pulse Oximetry 93 L 90 L 95 11/20/17 03:50 11/20/17 06:24 11/20/17 07:00 Temperature 97.9 F Pulse Rate 100 H 95 H Respiratory Rate 28 H 24 Blood Pressure 109/67 Pulse Oximetry 99 11/20/17 08:00 11/20/17 08:20 11/20/17 09:00 Temperature Pulse Rate 100 H 105 H 100 H Respiratory Rate 24 Blood Pressure 128/67 104/62 Pulse Oximetry 98 11/20/17 10:00 11/20/17 11:00 11/20/17 12:17 Temperature 99.1 F Pulse Rate 99 H 96 H 95 H Respiratory Rate 24 Blood Pressure 101/53 L 100/60 107/66 Pulse Oximetry 95 Intake & Output 11/19/17 11/20/17 11/20/17 18:59 06:59 18:59 Intake Total 4750 / 4750 3020 / 3020 270 / 270 Output Total 2450 / 2450 2530 / 2530 Balance 2300 / 2300 490 / 490 270 / 270 Weight 109 kg 115 kg Intake: IV 50 / 50 750 / 750 270 / 270 NovoLIN R (IV Infusion) 100 70 / 70 UNIT In NS Inj 99 ML @ 3 UNITS/ HR 3 mls/hr IV.CONT TITRATE PRN Rx#:[id number] Ofirmev Inj 1,000 mg In 100 ml 300 / 300 100 / 100 @ 400 mls/hr IV.SIG Q6H KATHIA Rx# :[id number] Buminate 5% Inj 250 ML @ 250 250 / 250 mls/hr IV.SIG UNSCH PRN Rx#: [id number] KCl 10 mEq Premix Inj 10 meq In 100 / 100 100 ml @ 100 mls/hr IV.SIG ONCE ONE Rx#:[id number] Ancef 2 GM Premix Inj 2 gm In 50 / 50 50 ml @ 0 mls/hr IV.SIG .STK- MED ONE Rx#:[id number] Ancef Inj 1,000 MG In NS Inj 200 / 200 100 ML @ 200 mls/hr IV.SIG Q8H KATHIA Rx#:[id number] Oral 180 / 180 Water Bolus Amount 90 / 90 Anesthesia Amount 4700 / 4700 Other 1999 / 1999 Output: Estimated Blood Loss 1400 / 1400 Urine Amount (Catheter) 1000 / 1000 2089 Indwelling Temp Sensing 999 / 1000 2089 Catheter Gastric Drainage 250 / 250 Oral Orogastric Tube 250 / 250 Chest Tube Drainage 50 / 50 190 / 190 #2 Anterior 50 / 50 190 / 190 Other: # Bowel Movements 0 - Constitutional no acute distress - Routine Neck Exam Absent: JVD - Routine Respiratory Exam Present: decreased breath sounds, rhonchi - Routine Cardiovascular Exam Present: RRR, S1, S2. Absent: murmur, gallop - Routine Abdominal Exam Present: soft, normoactive bowel sounds. Absent: tenderness, organomegaly - Urinary Catheter Management Indwelling Temp Sensing Catheter Cath placed during this visit: yes Reason for continuing: Hourly intake/output Insertion date: 11/19/17 Insertion time: 13:14 Assessment and Plan - Assessment (1) ST elevation myocardial infarction (STEMI) Code(s): I21.3 - ST elevation (STEMI) myocardial infarction of unspecified site Status: Acute Plan: Overall stable cardiac status s/p anterior STEMI, unsuccessful PCI of occluded proximal LAD, successful CABG x 3. No further angina. No arrhythmias so far. Continue routine post op care. Continue beta dave and aspirin. Probably can hold off on KIRSTEN-I or ARB with his renal insufficiency. Will f/u as needed. (2) Ischemic cardiomyopathy Code(s): I25.5 - Ischemic cardiomyopathy Status: Acute Plan: Somewhat tenuous respiratory status mainly due to COPD. EF ~35-40% by cath. Continue beta dave. Probably can hold off on KIRSTEN-I or ARB with his renal insufficiency. Consider diuresis. - Plan Code Status: full code Discussed Condition With: patient (1) ST elevation myocardial infarction (STEMI) Qualifiers: Involved coronary artery: LAD coronary artery Qualified Code(s): I21.02 - ST elevation (STEMI) myocardial infarction involving left anterior descending coronary artery
[2017-11-20] MEDS: Docusate Sodium 100 MG Capsule PO SCH (21:20)
[2017-11-21] MEDS: Insulin NovoLOG Aspart Correctional Sugar Inj SQ SCH ×5 (02:20→21:30)
[2017-11-21 04:51] LABS: Baso % (Auto) 0.2 % (0.0-2.0); Eos % (Auto) 0.1 % (0.0-4.0); Hematocrit 34.2 % (39.0-51.0); Hemoglobin 11.7 gm/dL (13.0-17.0); Lymph # (Auto) 0.5 th/mm3 (1.0-4.8); Mean Corpuscular HGB Conc 34.2 % (32.0-36.0); Mean Corpuscular Hemoglobin 30.7 pg (27.0-34.0); Mean Corpuscular Volume 89.8 fL (80.0-100.0); Mean Platelet Volume 9.6 fL (7.0-11.0); Mono # (Auto) 1.2 th/mm3 (0.0-0.9); Mono % (Auto) 8.9 % (0.0-8.0); Neut # (Auto) 11.3 th/mm3 (1.8-7.7); Neut % (Auto) 86.8 % (16.0-70.0); Platelet Count 120 th/mm3 (150-450); Red Cell Distribution Width 13.2 % (11.6-17.2)
[2017-11-21 05:45] LABS: Calcium 8.4 mg/dL (8.5-10.1); Carbon Dioxide 26.1 meq/L (21.0-32.0); Magnesium 2.6 mg/dL (1.5-2.5)
[2017-11-21] MEDS: Amiodarone 200 MG Tablet PO SCH (06:00)
[2017-11-21] MEDS: fentaNYL Citrate Inj 100 MCG/2 ML Ampul IV.PUSH PRN (06:26)
[2017-11-21] MEDS: ALPRAZolam 0.5 MG Tablet PO PRN (07:46)
--- NOTE | 2017-11-21 09:19 | XR ---
EXAM DATE: 11/21/2017 9:15 AM EDT AGE/SEX: 57 years / Male INDICATIONS: Pulmonary edema. Hypoxia. CLINICAL DATA: This is the patient's subsequent encounter. Patient reports that signs and symptoms h ave been present for 3 days and indicates a pain score of Nonresponsive. MEDICAL/SURGICAL HISTORY: Non-responsive. Non-responsive. COMPARISON: [facility], CHEST 1V SINGLE AP, 11/20/2017. . FINDINGS: Stable left subclavian central line. Stable mediastinal drain and left-sided chest tube. Improved dif fuse patchy airspace disease and improved central pulmonary vascular congestion. Cardiac silhouette r emains enlarged. No significant pneumothorax. Remainder of the exam is unchanged. CONCLUSION: 1. Stable tubes and lines. 2. Improving pulmonary edema pattern. 3. No pneumothorax. Electronically signed by: Praveen Vazquez MD 11/21/2017 9:18 AM EDT
[2017-11-21] MEDS: Polyethylene Glycol 3350 17 GM Packet PO SCH (09:32)
[2017-11-21] MEDS: Multivitamin/Minerals Therapeutic Tablet PO SCH (09:34)
[2017-11-21] MEDS: Metoprolol Tartrate 25 MG Tablet PO SCH ×3 (09:34→23:45)
[2017-11-21] MEDS ORDERED: MethylPREDNISolone Sod Succinate Inj 125 MG/2 ML Vial ONE (09:45)
[2017-11-21] MEDS ORDERED: MethylPREDNISolone Sod Succinate Inj 125 MG/2 ML Vial IV.PUSH ONE (09:45)
[2017-11-21] MEDS ORDERED: Dexmedetomidine Inj 200 MCG/2 ML Vial IV.PUSH ONE (09:54)
[2017-11-21] MEDS: Docusate Sodium 100 MG Capsule PO SCH ×2 (10:19→21:33)
[2017-11-21] MEDS: MethylPREDNISolone Sod Succinate Inj 125 MG/2 ML Vial IV.PUSH SCH ×3 (12:17→23:39)
--- NOTE | 2017-11-21 12:23 | P.PNCV ---
- Note Subjective/Hospital Course: 57-year-old white male with a history of hypertension, tobacco abuse, who was in his usual state of health up until 8:30 p.m. last night when he began to experience bilateral neck and substernal chest discomfort associated with shortness of breath without nausea or diaphoresis. The chest discomfort has persisted in a constant fashion until this morning when he presented to the [facility] at about 10:30. EKG showed evidence for acute anterior ST elevation myocardial infarction, so he was called as a STEMI alert. At this time, he states he has very little chest discomfort, but continues to have fairly severe upper mouth pain, which began last night as well. He continues to have mild to moderate dyspnea at rest. cath report : 1. Severe 3-vessel coronary artery disease, Right dominant system, Status post unsuccessful percutaneous coronary intervention attempt on the proximal LAD due to inability to wire the total occlusion, Suboptimal left ventriculogram. Probable small to moderate-sized area of apical akinesis. Ejection fraction is very roughly estimated at 35-40%. 11/19 for emergent surgery Emergency CABG x 3, GO to LAD - fair, SVG to OM - poor, SVG to D1 - poor, L EVH 4700cc crystalloid, 750cc cell saver, 1400cc EBL extubated after surgery 11/20 very poor pulm reserve, smokes 2 1/2 pk / day weaning off partial NRB mask gentle diuresis / eval for BB later today will need KIRSTEN prior to dc on ASA statin leave in CVICU today 11/21 increasing Resp distress, hypoxic with any exertion, sat 80's despite pulm toileting, CCM consulted placed on Bipap 20/11/ started on steroids diuresis / worsening indices, nephrology consulted chest tubes dc without difficultly keep in CVICU / amiodarone stopped sat's improved with Bipap Objective: Vital Signs - 24 hr 11/20/17 12:17 11/20/17 13:35 11/20/17 14:00 Temperature Pulse Rate 95 H 93 H Respiratory Rate Blood Pressure 107/66 103/60 Pulse Oximetry 94 L 11/20/17 14:35 11/20/17 15:00 11/20/17 17:45 Temperature 98.9 F Pulse Rate 94 H 95 H 105 H Respiratory Rate 24 25 H 24 Blood Pressure 121/72 Pulse Oximetry 94 L 11/20/17 20:00 11/20/17 21:28 11/20/17 22:00 Temperature 98.6 F Pulse Rate 104 H 100 H Respiratory Rate 20 22 Blood Pressure 107/63 Pulse Oximetry 95 94 L 93 L 11/20/17 23:40 11/21/17 00:00 11/21/17 03:32 Temperature 98.4 F Pulse Rate 90 88 97 H Respiratory Rate 32 H 24 20 Blood Pressure 92/55 L Pulse Oximetry 94 L 11/21/17 04:00 11/21/17 07:00 11/21/17 07:46 Temperature 98.9 F 98.6 F Pulse Rate 91 H 92 H 92 H Respiratory Rate 24 20 24 Blood Pressure 92/55 L 102/59 L Pulse Oximetry 95 96 97 11/21/17 08:00 11/21/17 09:53 11/21/17 11:00 Temperature 98.4 F Pulse Rate 98 H 93 H Respiratory Rate 28 H 20 Blood Pressure 109/55 L Pulse Oximetry 96 97 96 11/21/17 11:59 11/21/17 12:05 Temperature Pulse Rate 96 H Respiratory Rate 26 H Blood Pressure Pulse Oximetry 95 GENERAL: A&O x 3 / very anxious / now on precedex Rass -1 SKIN: Warm and dry. prevena dressing to chest , incision intact to left leg HEAD: Atraumatic. Normocephalic. EYES: Pupils equal and round. No scleral icterus. No injection or drainage. ENT: No nasal bleeding or discharge. Mucous membranes pink and moist. NECK: Trachea midline. No JVD. CARDIOVASCULAR: Regular rate and rhythm. mild general edema RESPIRATORY: + use of accessory muscle use. insp / exp wheezing / coarse bilateral breath sounds GASTROINTESTINAL: Abdomen soft, non-tender, nondistended. Hepatic and splenic margins not palpable. MUSCULOSKELETAL: Extremities without clubbing, cyanosis, or edema. No obvious deformities. NEUROLOGICAL: Awake and alert. No obvious cranial nerve deficits. Motor grossly within normal limits. Five out of 5 muscle strength in the arms and legs. Normal speech. PSYCHIATRIC: Anxious insight and judgment normal. Labs: Laboratory Results - last 12 hr 11/21/17 11/21/17 11/21/17 02:12 04:25 04:25 WBC 13.0 H RBC 3.80 L Hgb 11.7 L Hct 34.2 L MCV 89.8 MCH 30.7 MCHC 34.2 RDW 13.2 Plt Count 120 L MPV 9.6 Neut % (Auto) 86.8 H Lymph % (Auto) 4.0 L [place] % (Auto) 8.9 H Eos % (Auto) 0.1 Baso % (Auto) 0.2 Neut # (Auto) 11.3 H Lymph # (Auto) 0.5 L [place] # (Auto) 1.2 H Eos # (Auto) 0.0 Baso # (Auto) 0.0 WBC Differential . Differential Comment Auto diff final Sodium 140 Potassium 4.0 Chloride 104 Carbon Dioxide 26.1 Anion Gap 10 BUN 45 H Creatinine 2.98 H Estimated GFR 22 L POC Glucose 143 H Random Glucose 139 H Calcium 8.4 L Magnesium 2.6 H Result Diagrams: 11/21/17 04:25 11/21/17 04:25 Cardiovascular: NSR - Plan (1) S/P CABG (coronary artery bypass graft) Plan: ASA, statin , BB no KIRSTEN with TORIBIO stop amiodrone diuresis pulm toileting (2) ST elevation myocardial infarction (STEMI) (4) Hypertensive kidney disease with stage 3 chronic kidney disease Plan: monitor indices, avoid nephrotoxins nephrology consulted (5) Tobacco abuse Plan: smoking cessation (6) Acute respiratory failure Plan: Bipap for oxygenation and ventilation nebs steroids CCM following may need intubation if not improved (2) ST elevation myocardial infarction (STEMI) Qualifiers: Involved coronary artery: LAD coronary artery Qualified Code(s): I21.02 - ST elevation (STEMI) myocardial infarction involving left anterior descending coronary artery
--- NOTE | 2017-11-21 15:09 | P.CONCC ---
History of Present Illness Service: critical care Consult date: 11/21/17 Requesting Physician: Jennifer Rojas Reason for Consult: acute resp failure Primary Care Provider: Odilon Hernandez MD Family Provider: Odilon Hernandez MD Chief Complaint: chest pain History of Present Illness: 57-year-old male with a medical history significant for hypertension, smoking with probable COPD who was admitted on 11/19 with chest pain diagnosed to have a STEMI, underwent cardiac catheterization with unsuccessful PCI attempt on proximal LAD, LVEF 35-40% who was taken for emergent CABG by Dr. Lee on 11/19 and underwent CABG 3 with GO to LAD, SVG to OM, SVG to diagonal 1 and was successfully extubated after surgery on 11/19. Patient was noted to have hypoxia with shortness of breath requiring partial nonrebreather facemask on and was initiated on gentle diuresis however his breathing worsened overnight and critical care consult was requested due to worsening respiratory failure with O2 sats in the 80s this morning on a nonrebreather facemask. When I evaluated the patient in the ICU he was tachypneic and dyspneic using accessory muscles of respiration with bilateral wheezing. His O2 sats were 81% on a nonrebreather facemask. He was immediately given Solu-Medrol 125 mg IV stat and was started on duo nebs and was placed on BiPAP with which his O2 sats came up to the low 90s and his work of breathing appeared to improve. He was also started on Precedex in order to tolerate BiPAP. Review of Systems All other systems reviewed negative except as stated in HPI PMFSH - History History Provided By: Patient - Medical History Medical History: Medical History (Last Reviewed 11/20/17 @ 14:26 by Jean Paul Alcala) Hypertension - Tobacco History Tobacco Use In Past 30 Days: Yes Smoking Status: Current every day smoker Tobacco Type: Cigarettes - Alcohol History How Often Do You Have a Drink Containing Alcohol: Never - Substance Use History Substance History: No History of Abuse - Travel History Recent Travel in the [place] Within the Last 8 Weeks: No Recent Travel Out of the Country Within the Last 8 Weeks: No - Immunization History Tetanus Immunization: Unable to Assess Hx Influenza Vaccine This Season: Unable to Assess Medications and Allergies Active Medications: Active Medications Albuterol (Duoneb Neb (Prn)) 1 ampul NEB Q2HR NEB PRN PRN Reason: WHEEZING Last Admin: 11/21/17 11:58 Dose: 1 ampul Albuterol (Duoneb Neb ([facility])) 1 ampul NEB Q6HR WHILE AWAKE NEB [facility] Stop: 11/22/17 13:59 Last Admin: 11/21/17 13:48 Dose: 1 ampul Alprazolam (Xanax) 0.5 mg PO Q8H PRN PRN Reason: anxiety Last Admin: 11/21/17 07:46 Dose: 0.5 mg Aspirin (Aspirin Chew) 81 mg PO DAILY [facility] Last Admin: 11/21/17 09:33 Dose: 81 mg Atorvastatin Calcium (Lipitor) 80 mg PO HS [facility] Last Admin: 11/20/17 21:18 Dose: 80 mg Bisacodyl (Dulcolax Supp) 10 mg RECTAL PRN PRN PRN Reason: SEE LABEL COMMENTS Budesonide (Pulmicort Respule Neb) 0.25 mg NEB Q12HR NEB [facility] Last Admin: 11/21/17 07:46 Dose: 0.25 mg Sodium Chloride 77.5 ml/Papaverine HCl 60 mg/Nitroglycerin 100 mcg/Diltiazem HCl 100 mg 0 ml IRRIGATION INSURANCE CLAIM AUDITOR [facility] Stop: 11/25/17 12:42 Sodium Chloride 500 ml/ (Cefazolin Sodium 500 mg) 0 ml IRRIGATION INSURANCE CLAIM AUDITOR [facility] Stop: 11/25/17 12:42 Dextrose (D50w Vial) 50 ml IV.PUSH UNSCH PRN PRN Reason: PER HYPOGLYCEMIA PROTOCOL Docusate Sodium (Colace) 100 mg PO BID [facility] Last Admin: 11/21/17 10:19 Dose: 100 mg Fentanyl Citrate (Fentanyl Inj) 25 mcg IV.PUSH Q1H PRN PRN Reason: BREAKTHROUGH PAIN Last Admin: 11/21/17 06:26 Dose: 25 mcg Glucagon (Glucagon Inj) 1 mg OTHER PRN PRN PRN Reason: For hypoglycemia Dexmedetomidine HCl 200 mcg/ (Sodium Chloride) 50 mls @ 5.77 mls/hr IV.CONT TITRATE PRN; Protocol PRN Reason: Per Protocol Insulin Aspart (Novolog Insulin Correctional Sugar Inj) 1 unit SQ ACHS [facility]; Protocol Last Admin: 11/21/17 12:14 Dose: 1 unit Methylprednisolone Sodium Succinate (Solumedrol Inj) 60 mg IV.PUSH Q6HR [facility] Last Admin: 11/21/17 12:17 Dose: Not Given Metoclopramide HCl (Reglan Inj) 10 mg IV.PUSH ACHS [facility]; Protocol Last Admin: 11/21/17 09:33 Dose: 10 mg Metoprolol Tartrate (Lopressor) 12.5 mg PO BID [facility] Last Admin: 11/21/17 09:34 Dose: 12.5 mg Miscellaneous (Pill Splitter) 1 each OTHER UNSCH [facility] Multivitamins/Minerals (Theragran-M) 1 tab PO DAILY [facility] Last Admin: 11/21/17 09:34 Dose: 1 tab Ondansetron HCl (Zofran Inj) 4 mg IV.PUSH Q6H PRN PRN Reason: NAUSEA OR VOMITING Oxycodone/Acetaminophen (Percocet 5/325 Mg) 1 tab PO Q3H PRN PRN Reason: PAIN SCALE 1 TO 5 Last Admin: 11/21/17 06:00 Dose: 1 tab Pantoprazole Sodium (Protonix) 40 mg PO DAILY@06 [facility] Last Admin: 11/21/17 06:00 Dose: 40 mg Polyethylene Glycol (Miralax) 17 gm PO DAILY [facility] Last Admin: 11/21/17 09:32 Dose: 17 gm Sennosides (Senokot) 8.6 mg PO HS [facility] Last Admin: 11/20/17 21:18 Dose: 8.6 mg Sodium Biphosphate/Sodium Phosphate (Fleets Enema (Adult)) 118 ml RECTAL UNSCH PRN PRN Reason: SEE LABEL COMMENTS Sodium Chloride (Ns Flush) 2 ml IV.FLUSH PRN PRN PRN Reason: FLUSH AFTER USING IV ACCESS Allergies Allergy/AdvReac Type Severity Reaction Status Date / Time No Known Allergies Allergy Uncoded 01/23/12 16:21 Home Medications Medication Instructions Recorded Confirmed Type Unable to Obtain Home Meds 11/19/17 11/19/17 History Physical Exam Vital signs: Vital Signs 11/20/17 14:35 11/20/17 15:00 11/20/17 17:45 Temperature 98.9 F Pulse Rate 94 H 95 H 105 H Respiratory Rate 24 25 H 24 Blood Pressure 121/72 Pulse Oximetry 94 L 11/20/17 20:00 11/20/17 21:28 11/20/17 22:00 Temperature 98.6 F Pulse Rate 104 H 100 H Respiratory Rate 20 22 Blood Pressure 107/63 Pulse Oximetry 95 94 L 93 L 11/20/17 23:40 11/21/17 00:00 11/21/17 03:32 Temperature 98.4 F Pulse Rate 90 88 97 H Respiratory Rate 32 H 24 20 Blood Pressure 92/55 L Pulse Oximetry 94 L 11/21/17 04:00 11/21/17 07:00 11/21/17 07:46 Temperature 98.9 F 98.6 F Pulse Rate 91 H 92 H 92 H Respiratory Rate 24 20 24 Blood Pressure 92/55 L 102/59 L Pulse Oximetry 95 96 97 11/21/17 08:00 11/21/17 09:53 11/21/17 11:00 Temperature 98.4 F Pulse Rate 98 H 93 H Respiratory Rate 28 H 20 Blood Pressure 109/55 L Pulse Oximetry 96 97 96 11/21/17 11:59 11/21/17 12:05 11/21/17 13:49 Temperature Pulse Rate 96 H 88 Respiratory Rate 26 H 22 Blood Pressure Pulse Oximetry 95 Intake & Output 11/20/17 11/21/17 11/21/17 18:59 06:59 18:59 Intake Total 1330 / 1330 580 / 580 Output Total 2620 / 2620 430 / 430 Balance -1290 / -1290 150 / 150 Weight 115.5 kg Intake: IV 370 / 370 100 / 100 NovoLIN R (IV Infusion) 100 70 / 70 UNIT In NS Inj 99 ML @ 3 UNITS/ HR 3 mls/hr IV.CONT TITRATE PRN Rx#:[id number] Ofirmev Inj 1,000 mg In 100 ml 100 / 100 @ 400 mls/hr IV.SIG Q6H [facility] Rx# :[id number] KCl 10 mEq Premix Inj 10 meq In 100 / 100 100 ml @ 100 mls/hr IV.SIG ONCE ONE Rx#:[id number] Ancef Inj 1,000 MG In NS Inj 100 / 100 100 / 100 100 ML @ 200 mls/hr IV.SIG Q8H [facility] Rx#:[id number] Oral 960 / 960 480 / 480 Output: Urine Amount (Catheter) 2300 / 2300 400 / 400 Indwelling Temp Sensing 2300 / 2300 400 / 400 Catheter Chest Tube Drainage 320 / 320 30 / 30 #2 Anterior 320 / 320 30 / 30 Other: # Bowel Movements 0 Narrative: HEENT/Neuro: Pallor present, no icterus, tongue moist, MARIANA, Awake alert oriented 3, nonfocal grossly, moving all 4 extremities Neck: No JVD Chest/pulmonary: Good air entry bilaterally, bilateral expiratory wheezing, scattered rhonchi Cardiovascular: Wound VAC over sternotomy site, S1-S2 regular no gallop or murmur GI/abdomen: Soft, nontender, bowel sounds present Extremities: Warm bilaterally, no edema - Urinary Catheter Management Indwelling Temp Sensing Catheter Cath placed during this visit: yes, but has since been removed by the nurse Reason for continuing: Decision to DC catheter Insertion date: 11/19/17 Insertion time: 13:14 Removal date: 11/21/17 Removal time: 06:00 Assessment and Plan - Assessment and Plan Plan: 57-year-old male with: Acute respiratory failure requiring BiPAP COPD exacerbation Possible pulmonary edema STEMI status post three-vessel CABG postop day 2 TORIBIO Hypertension Ischemic cardiomyopathy Plan: Neuro: Follow neuro status. Precedex gtt. ordered in order to better tolerate BiPAP. Continue pain medications per CT surgery. Cardiovascular: Status post 3 vessel CABG 11/19. Chest tubes removed today. CT surgery following. Beta-dave, aspirin, statin per cardiology/CT surgery. Holding KIRSTEN inhibitor in view of elevated creatinine. Lasix 40 mg IV 1 dose to mobilize fluid. Pulmonary: Placed on BiPAP +15/+5 FiO2 100%. Will titrate FiO2 down as tolerated. Bronchodilators, IV Solu-Medrol started 11/21. Being diuresed GI/liver: N.p.o. till improvement of respiratory status. If patient tolerates getting off BiPAP may advance p.o. diet as tolerated. Renal/: Strict intake output, monitor and replete electrodes, follow BUN/ creatinine. Nephrology consulted in view of elevated BUN/creatinine. Lasix 40 mg IV 1 dose to mobilize fluid. ID: Preop antibiotic prophylaxis per CT surgery Endocrine: SSI for glycemic control as needed. Heme: Follow CBC Prophylaxis: PPI/SCDs/Lovenox when okay with CT surgery D/W CTS TIMBER MANAGEMENT SPECIALIST, D/w DATA PROCESSING EQUIPMENT REPAIRER Condition critical Time spent on critical care excluding procedures 60 minutes
--- NOTE | 2017-11-21 20:17 | P.CONNP ---
History of Present Illness Service: Nephrology Consult date: 11/21/17 Requesting Physician: Jennifer Rojas Reason for Consult: Acute renal failure Primary Care Provider: Odilon Hernandez MD Family Provider: Odilon Hernandez MD Chief Complaint: chest pain History of Present Illness: Patient is a 57-year-old white male with history of COPD, chronic cigarette smoking who developed chest pain and acute coronary syndrome he was taken for percutaneous angiography and stent placement which was unsuccessful on 2017 required emergent triple vessel bypass surgery, patient was successfully extubated after the procedure and currently on BiPAP, his kidney functions are getting worse and urine output is moderate, he was given Lasix 80 mg IV earlier and passed 400 cc of urine, patient remains short of breath. He denies any previous history of kidney disease, prostate problem kidney stones. [facility] - History History Provided By: Patient - Medical History Medical History: Medical History (Last Reviewed 11/20/17 @ 14:26 by Jean Paul Alcala) Hypertension - Tobacco History Tobacco Use In Past 30 Days: Yes Smoking Status: Current every day smoker Tobacco Type: Cigarettes - Alcohol History How Often Do You Have a Drink Containing Alcohol: Never - Substance Use History Substance History: No History of Abuse - Travel History Recent Travel in the [place] Within the Last 8 Weeks: No Recent Travel Out of the Country Within the Last 8 Weeks: No - Immunization History Tetanus Immunization: Unable to Assess Hx Influenza Vaccine This Season: Unable to Assess Medications and Allergies Active Medications: Active Medications Albuterol (Duoneb Neb (Prn)) 1 ampul NEB Q2HR NEB PRN PRN Reason: WHEEZING Last Admin: 11/21/17 18:16 Dose: 1 ampul Albuterol (Duoneb Neb ([facility])) 1 ampul NEB Q6HR WHILE AWAKE NEB [facility] Stop: 11/22/17 13:59 Last Admin: 11/21/17 13:48 Dose: 1 ampul Alprazolam (Xanax) 0.5 mg PO Q8H PRN PRN Reason: anxiety Last Admin: 11/21/17 07:46 Dose: 0.5 mg Aspirin (Aspirin Chew) 81 mg PO DAILY [facility] Last Admin: 11/21/17 09:33 Dose: 81 mg Atorvastatin Calcium (Lipitor) 80 mg PO HS [facility] Last Admin: 11/20/17 21:18 Dose: 80 mg Bisacodyl (Dulcolax Supp) 10 mg RECTAL PRN PRN PRN Reason: SEE LABEL COMMENTS Budesonide (Pulmicort Respule Neb) 0.25 mg NEB Q12HR NEB [facility] Last Admin: 11/21/17 07:46 Dose: 0.25 mg Bumetanide (Bumex Inj) 1 mg IV.PUSH BID@0900,1800 [facility] Sodium Chloride 77.5 ml/Papaverine HCl 60 mg/Nitroglycerin 100 mcg/Diltiazem HCl 100 mg 0 ml IRRIGATION AUTOMATIC VULCANIZING LEAD OPERATOR [facility] Stop: 11/25/17 12:42 Sodium Chloride 500 ml/ (Cefazolin Sodium 500 mg) 0 ml IRRIGATION AUTOMATIC VULCANIZING LEAD OPERATOR [facility] Stop: 11/25/17 12:42 Dextrose (D50w Vial) 50 ml IV.PUSH UNSCH PRN PRN Reason: PER HYPOGLYCEMIA PROTOCOL Docusate Sodium (Colace) 100 mg PO BID [facility] Last Admin: 11/21/17 10:19 Dose: 100 mg Fentanyl Citrate (Fentanyl Inj) 25 mcg IV.PUSH Q1H PRN PRN Reason: BREAKTHROUGH PAIN Last Admin: 11/21/17 06:26 Dose: 25 mcg Glucagon (Glucagon Inj) 1 mg OTHER PRN PRN PRN Reason: For hypoglycemia Dexmedetomidine HCl 200 mcg/ (Sodium Chloride) 50 mls @ 5.77 mls/hr IV.CONT TITRATE PRN; Protocol PRN Reason: Per Protocol Albumin Human (Flexbumin 25% Inj) 100 mls @ 60 mls/hr IV.SIG Q12H [facility] Insulin Aspart (Novolog Insulin Correctional Sugar Inj) 1 unit SQ [facility]; Protocol Last Admin: 11/21/17 16:04 Dose: Not Given Methylprednisolone Sodium Succinate (Solumedrol Inj) 60 mg IV.PUSH Q6HR [facility] Last Admin: 11/21/17 17:36 Dose: 60 mg Metoclopramide HCl (Reglan Inj) 10 mg IV.PUSH ACHS [facility]; Protocol Last Admin: 11/21/17 18:59 Dose: 10 mg Metoprolol Tartrate (Lopressor) 12.5 mg PO BID [facility] Last Admin: 11/21/17 09:34 Dose: 12.5 mg Miscellaneous (Pill Splitter) 1 each OTHER UNSCH [facility] Multivitamins/Minerals (Theragran-M) 1 tab PO DAILY [facility] Last Admin: 11/21/17 09:34 Dose: 1 tab Ondansetron HCl (Zofran Inj) 4 mg IV.PUSH Q6H PRN PRN Reason: NAUSEA OR VOMITING Oxycodone/Acetaminophen (Percocet 5/325 Mg) 1 tab PO Q3H PRN PRN Reason: PAIN SCALE 1 TO 5 Last Admin: 11/21/17 06:00 Dose: 1 tab Pantoprazole Sodium (Protonix) 40 mg PO DAILY@06 [facility] Last Admin: 11/21/17 06:00 Dose: 40 mg Polyethylene Glycol (Miralax) 17 gm PO DAILY [facility] Last Admin: 11/21/17 09:32 Dose: 17 gm Sennosides (Senokot) 8.6 mg PO HS [facility] Last Admin: 11/20/17 21:18 Dose: 8.6 mg Sodium Biphosphate/Sodium Phosphate (Fleets Enema (Adult)) 118 ml RECTAL UNSCH PRN PRN Reason: SEE LABEL COMMENTS Sodium Chloride (Ns Flush) 2 ml IV.FLUSH PRN PRN PRN Reason: FLUSH AFTER USING IV ACCESS Allergies Allergy/AdvReac Type Severity Reaction Status Date / Time No Known Allergies Allergy Uncoded 01/23/12 16:21 Home Medications Medication Instructions Recorded Confirmed Type Unable to Obtain Home Meds 11/19/17 11/19/17 History Exam Vital signs: Vital Signs 11/20/17 21:28 11/20/17 22:00 11/20/17 23:40 Temperature Pulse Rate 100 H 90 Respiratory Rate 22 32 H Blood Pressure Pulse Oximetry 94 L 93 L 11/21/17 00:00 11/21/17 03:32 11/21/17 04:00 Temperature 98.4 F 98.9 F Pulse Rate 88 97 H 91 H Respiratory Rate 24 20 24 Blood Pressure 92/55 L 92/55 L Pulse Oximetry 94 L 95 11/21/17 07:00 11/21/17 07:46 11/21/17 08:00 Temperature 98.6 F Pulse Rate 92 H 92 H Respiratory Rate 20 24 Blood Pressure 102/59 L Pulse Oximetry 96 97 96 11/21/17 09:53 11/21/17 11:00 11/21/17 11:59 Temperature 98.4 F Pulse Rate 98 H 93 H 96 H Respiratory Rate 28 H 20 26 H Blood Pressure 109/55 L Pulse Oximetry 97 96 11/21/17 12:05 11/21/17 13:49 11/21/17 13:57 Temperature Pulse Rate 88 Respiratory Rate 22 Blood Pressure Pulse Oximetry 95 93 L 11/21/17 15:00 11/21/17 15:32 11/21/17 15:34 Temperature 98.6 F Pulse Rate 83 83 Respiratory Rate 20 17 Blood Pressure 102/41 L Pulse Oximetry 83 L 94 L 11/21/17 18:16 Temperature Pulse Rate 81 Respiratory Rate 28 H Blood Pressure Pulse Oximetry 96 Intake & Output 11/21/17 11/21/17 11/22/17 06:59 18:59 06:59 Intake Total 580 / 580 350 / 350 Output Total 430 / 430 450 / 450 Balance 150 / 150 -100 / -100 Weight 115.5 kg Intake: IV 100 / 100 Ancef Inj 1,000 MG In NS Inj 100 / 100 100 ML @ 200 mls/hr IV.SIG Q8H [facility] Rx#:[id number] Oral 480 / 480 350 / 350 Output: Urine 450 / 450 Urine Amount (Catheter) 400 / 400 Indwelling Temp Sensing 400 / 400 Catheter Chest Tube Drainage 30 / 30 #2 Anterior 30 / 30 Other: # Bowel Movements 0 0 - Constitutional moderate distress - Routine HEENT Exam Head: Present: normocephalic, atraumatic Eye: Present: EOMI, PERRL - Routine Neck Exam Present: supple - Routine Chest/Breast/Axilla Exam Chest wall: Present: tenderness (Postsurgical) - Routine Respiratory Exam Present: rales, rhonchi - Routine Cardiovascular Exam Present: RRR - Routine Abdominal Exam Present: soft, normoactive bowel sounds - Routine Extremities Exam Present: edema - Routine Neurological Exam Present: alert, oriented X3 Results - Lab Results 11/21/17 04:25 11/21/17 04:25 Most recent lab results Calcium 8.4 mg/dL (8.5-10.1) L 11/21/17 04:25 Magnesium 2.6 mg/dL (1.5-2.5) H 11/21/17 04:25 Assessment and Plan - Assessment (1) Acute renal failure Code(s): N17.9 - Acute kidney failure, unspecified Status: Acute (2) CAD (coronary artery disease) Code(s): I25.10 - Atherosclerotic heart disease of [place] coronary artery without angina pectoris Status: Acute (3) Hypertensive kidney disease with stage 3 chronic kidney disease Code(s): I12.9 - Hypertensive chronic kidney disease with stage 1 through stage 4 chronic kidney disease, or unspecified chronic kidney disease; N18.3 - Chronic kidney disease, stage 3 (moderate) Status: Acute (4) S/P CABG (coronary artery bypass graft) Code(s): Z95.1 - Presence of aortocoronary bypass graft Status: Acute - Plan I will give the patient diuretics albumin followed by Bumex Monitor intake and output Follow BMP Avoid nephrotoxic Agents Avoid contrast study Check urine sodium to creatinine ratio Baseline kidney ultrasound
[2017-11-21] MEDS: Dexmedetomidine Inj 200 MCG in Sodium Chlor 0.9% Inj 48 ML IV.CONT PRN ×2 (20:18→23:41)
[2017-11-21] MEDS: Albumin Human 25% Inj 100 ML IV.SIG SCH (21:33)
[2017-11-21 22:55] LABS: Creatinine,Urine Random 140 mg/dL (27-300)
[2017-11-22] MEDS: Dexmedetomidine Inj 200 MCG in Sodium Chlor 0.9% Inj 48 ML IV.CONT PRN ×2 (02:32→05:51)
[2017-11-22 04:53] LABS: Hematocrit 30.6 % (39.0-51.0); Hemoglobin 10.5 gm/dL (13.0-17.0); Mean Corpuscular HGB Conc 34.3 % (32.0-36.0); Mean Corpuscular Hemoglobin 31.4 pg (27.0-34.0); Mean Corpuscular Volume 91.6 fL (80.0-100.0); Mean Platelet Volume 10.2 fL (7.0-11.0); Platelet Count 119 th/mm3 (150-450); Red Blood Count 3.34 mil/mm3 (4.50-5.90); Red Cell Distribution Width 13.5 % (11.6-17.2); White Blood Count 7.2 th/mm3 (4.0-11.0)
[2017-11-22 05:26] LABS: Calcium 8.1 mg/dL (8.5-10.1); Carbon Dioxide 25.2 meq/L (21.0-32.0); Magnesium 3.2 mg/dL (1.5-2.5); Potassium 4.1 meq/L (3.5-5.1)
[2017-11-22] MEDS: MethylPREDNISolone Sod Succinate Inj 125 MG/2 ML Vial IV.PUSH SCH ×4 (05:53→23:26)
--- NOTE | 2017-11-22 05:57 | XR ---
EXAM DATE: 11/22/2017 5:54 AM EDT AGE/SEX: 57 years / Male INDICATIONS: Chest tube removal. Post CABG. CLINICAL DATA: This is the patient's subsequent encounter. Patient reports that signs and symptoms h ave been present for 3 days and indicates a pain score of 6/10. MEDICAL/SURGICAL HISTORY: Cardiovascular disease. CABG. COMPARISON: [facility], CHEST 1V SINGLE AP, 11/21/2017. . FINDINGS: The patient is status post sternotomy. The heart size is enlarged. The lungs are essentially diffuse mixed interstitial and alveolar consolidation. There is silhouetting of the left hemidiaphragm. There is a left subclavian line in good position. The left chest tube has been removed. A pneumothorax is not seen. CONCLUSION: Diffuse consolidation likely from edema. Removal of the left chest tube without evidence of a pneumothorax. Electronically signed by: Alessandro Mcgarry MD 11/22/2017 5:55 AM EDT
[2017-11-22] MEDS ORDERED: Midazolam Inj 5 MG/ML 1 ML Vial ONE (06:29)
[2017-11-22] MEDS ORDERED: Etomidate Inj 20 MG/10 ML Ampul IV.PUSH ONE (06:29)
[2017-11-22] MEDS ORDERED: Sodium Bicarbonate 8.4% Inj 50 MEQ/50 ML Syringe ONE ×2 (06:43→09:36)
--- NOTE | 2017-11-22 06:47 | P.PCN ---
Date of procedure: 11/22/17 Pre-op diagnosis: Acut hypoxemic respiratory failure Post-op diagnosis: same Procedure: Endotracheal intubation Patient severely hypoxemic, anuric. Currently on BiPAP 15/5, 85% FiO2. Rapid sequence intubation was initiated. Patient was appropriately positioned and was administered etomidate 20 mg IV, Versed 5 mg IV, rocuronium 50 mg IV. I entered the oropharynx with direct laryngoscopy MAC 4 blade and obtained a grade 1 view. Patient was intubated with an 8.0 ET tube on single attempt. ET tube placement confirmed by directly visualizing the tube passing through the vocal cords, bilateral equal air entry and, end-tidal CO2 color change. Patient tolerated procedure well. Postprocedure chest x-ray is pending at this time Anesthesia: CECILIA Surgeon: Jerrell Francois Estimated blood loss (mL): 0 Pathology: other (sputum culture) Condition: critical Disposition: ICU
--- NOTE | 2017-11-22 06:49 | P.PNCC ---
Subjective Subjective Remarks/Hospital Course: 57-year-old male with a medical history significant for hypertension, smoking with probable COPD who was admitted on 11/19 with chest pain diagnosed to have a STEMI, underwent cardiac catheterization with unsuccessful PCI attempt on proximal LAD, LVEF 35-40% who was taken for emergent CABG by Dr. Lee on 11/19 and underwent CABG 3 with GO to LAD, SVG to OM, SVG to diagonal 1 and was successfully extubated after surgery on 11/19. Patient was noted to have hypoxia with shortness of breath requiring partial nonrebreather facemask on and was initiated on gentle diuresis however his breathing worsened overnight and critical care consult was requested due to worsening respiratory failure with O2 sats in the 80s this morning on a nonrebreather facemask. When I evaluated the patient in the ICU he was tachypneic and dyspneic using accessory muscles of respiration with bilateral wheezing. His O2 sats were 81% on a nonrebreather facemask. He was immediately given Solu-Medrol 125 mg IV stat and was started on duo nebs and was placed on BiPAP with which his O2 sats came up to the low 90s and his work of breathing appeared to improve. He was also started on Precedex in order to tolerate BiPAP. SUBJ 11/22: Patient currently on BiPAP with 85% FiO2. Severe oliguria urine output only 300 mL last 12 hours. BUN 75 creatinine 4.1. Chest x-ray shows severe pulmonary edema. Proceeded with endotracheal intubation and placed on mechanical ventilation with PEEP of 10. Nephrology and initiate hemodialysis Objective Vital Signs / I&O: Vital Signs 11/21/17 07:00 11/21/17 07:46 11/21/17 08:00 Temperature 98.6 F Pulse Rate 92 H 92 H Respiratory Rate 20 24 Blood Pressure 102/59 L Pulse Oximetry 96 97 96 11/21/17 09:53 11/21/17 11:00 11/21/17 11:59 Temperature 98.4 F Pulse Rate 98 H 93 H 96 H Respiratory Rate 28 H 20 26 H Blood Pressure 109/55 L Pulse Oximetry 97 96 11/21/17 12:05 11/21/17 13:49 11/21/17 13:57 Temperature Pulse Rate 88 Respiratory Rate 22 Blood Pressure Pulse Oximetry 95 93 L 11/21/17 15:00 11/21/17 15:32 11/21/17 15:34 Temperature 98.6 F Pulse Rate 83 83 Respiratory Rate 20 17 Blood Pressure 102/41 L Pulse Oximetry 83 L 94 L 11/21/17 18:16 11/21/17 19:00 11/21/17 20:00 Temperature 99.3 F Pulse Rate 81 81 85 Respiratory Rate 28 H 22 Blood Pressure 97/70 L Pulse Oximetry 96 92 L 11/21/17 20:17 11/21/17 22:30 11/21/17 22:49 Temperature Pulse Rate 82 136 H 120 H Respiratory Rate 20 22 Blood Pressure Pulse Oximetry 11/21/17 23:00 11/21/17 23:15 11/22/17 00:00 Temperature 98.7 F Pulse Rate 85 72 Respiratory Rate 22 Blood Pressure 96/66 L Pulse Oximetry 95 95 11/22/17 00:30 11/22/17 03:00 11/22/17 04:00 Temperature 98.5 F Pulse Rate 68 67 Respiratory Rate 22 Blood Pressure 102/67 Pulse Oximetry 96 95 11/22/17 04:10 Temperature Pulse Rate Respiratory Rate Blood Pressure Pulse Oximetry 95 Intake & Output 11/21/17 11/21/17 11/22/17 06:59 18:59 06:59 Intake Total 580 / 580 350 / 350 370 / 370 Output Total 430 / 430 450 / 450 300 / 300 Balance 150 / 150 -100 / -100 70 / 70 Weight 115.5 kg 113 kg Intake: IV 100 / 100 250 / 250 Precedex Inj 200 MCG In NS Inj 150 / 150 48 ML @ 0.2 MCG/KG/HR 5.77 mls/ hr IV.CONT TITRATE PRN Rx#: [id number] Flexbumin 25% Inj 100 ML @ 60 100 / 100 mls/hr IV.SIG Q12H KATHIA Rx#: [id number] Ancef Inj 1,000 MG In NS Inj 100 / 100 100 ML @ 200 mls/hr IV.SIG Q8H KATHIA Rx#:[id number] Oral 480 / 480 350 / 350 120 / 120 Output: Urine 450 / 450 300 / 300 Urine Amount (Catheter) 400 / 400 Indwelling Temp Sensing 400 / 400 Catheter Chest Tube Drainage 30 / 30 #2 Anterior 30 / 30 Other: # Bowel Movements 0 0 Result Diagrams: 11/22/17 04:05 08/17/18 04:05 Imaging: Chest x-ray shows bilateral severe pulmonary edema Objective Remarks: GEN: 57-year-old male critically ill currently on BiPAP with 85% FiO2 HEENT: Pallor present, no icterus, BiPAP mask limits exam Neck: Unable to appreciate JVD Chest/pulmonary: Bilateral expiratory wheezing, bilateral diffuse crackles Cardiovascular: Wound VAC over sternotomy site, S1-S2 regular no gallop or murmur GI/abdomen: Soft, nontender, bowel sounds present Extremities: Warm bilaterally. Bilateral groin without hematoma NEURO:Awake alert, nonfocal grossly, moving all 4 extremities Assessment and Plan - Assessment and Plan Plan: ASSESSMENT: 57-year-old male with: Acute hypoxemic respiratory failure Acute kidney failure with oliguria Severe pulmonary edema COPD exacerbation STEMI status post three-vessel CABG postop day 2 Hypertension Ischemic cardiomyopathy, EF 35-40% PLAN: Neuro: -Postintubation propofol and fentanyl for sedation and vent synchrony and pain control Cardiovascular: -Chest x-ray shows severe pulmonary edema, congestive heart failure -Not responding to Bumex need emergency hemodialysis. -Continue Bumex for now, start milrinone at 0.25 mcg/kg/min -Levophed to keep map above 65 -Status post 3 vessel CABG 11/19. CT surgery following. -Hold Beta-dave, continue aspirin, statin per cardiology/CT surgery. -Holding KIRSTEN inhibitor in view of elevated creatinine. Pulmonary: -Patient intubated emergently and placed on mechanical ventilation, PRVC/AC, PEEP 10 100% Fio2 -Check sputum culture -Will titrate FiO2 down as tolerated. -Bronchodilators, IV Solu-Medrol started 11/21. Vent bundle GI/liver: -N.p.o. till improvement of respiratory status. Place NG tube postintubation -Start Nepro in 24 hours -Continue Protonix, bowel regimen Renal/: -Worsening renal failure BUN 75 creatinine 4.1. -Patient is oliguric Bk 300 mL output last 12 hours, patient had severe pulmonary edema and FiO2 requirement is 100% -We will discuss with nephrology and initiate hemodialysis Strict intake output, monitor and replete electrodes, follow BUN/creatinine. ID: -Sandra-op antibiotic prophylaxis per CT surgery -Check sputum culture Endocrine: -SSI for glycemic control as needed. Heme: -Follow CBC Prophylaxis: -PPI. Lovenox when okay with CT surgery Condition critical Time spent on critical care excluding procedures 80 minutes excluding procedure Code Status: Full Discussed Condition With: Dr. Yañez
[2017-11-22] MEDS ORDERED: Milrinone Inj 20 MG in Sodium Chlor 0.9% Inj 80 ML IV.CONT SCH (07:00)
[2017-11-22] MEDS ORDERED: Propofol Inj 500 MG/50 ML Vial ONE ×2 (07:01→07:05)
--- NOTE | 2017-11-22 07:30 | XR ---
EXAM DATE: 11/22/2017 7:25 AM EDT AGE/SEX: 57 years / Male INDICATIONS: S/P intubation. CLINICAL DATA: This is the patient's initial encounter. Patient reports that signs and symptoms have been present for 1 day and indicates a pain score of Nonresponsive. MEDICAL/SURGICAL HISTORY: Cardiovascular disease. CABG. COMPARISON: [facility] [place], CHEST 1V SINGLE AP, 11/22/2017. . FINDINGS: A single AP view of the chest demonstrates interval placement of an endotracheal tube with distal tip approximately 3.5 cm above the oralia. Persistent patchy airspace opacities are seen bilaterally in a perihilar and basilar distribution, likely reflecting pulmonary edema. Stable enlargement of the ca rdiomediastinal silhouette. Prior sternotomy. No appreciable pneumothorax. Left subclavian central ve nous catheter remains in place. CONCLUSION: 1. Interval intubation with endotracheal tube in appropriate position. 2. Persistent patchy airspace opacities bilaterally, likely reflecting pulmonary edema. Electronically signed by: Aretha Nettles MD 11/22/2017 7:29 AM EDT
[2017-11-22] MEDS ORDERED: Acetaminophen 325 MG Tablet PO PRN (08:00)
[2017-11-22] MEDS ORDERED: Sod Chloride 0.9% Inj 1,000 ML IV.CONT PRN (08:00)
[2017-11-22] MEDS ORDERED: Gelatin 12 MM/7 MM Topical Foam TOPICAL PRN (08:00)
[2017-11-22] MEDS ORDERED: Heparin 10,000 UNITS/10 ML Vial (for IV use) OTHER PRN ×2 (08:00)
[2017-11-22] MEDS ORDERED: Sod Chloride 0.9% Inj 1,000 ML OTHER PRN ×2 (08:00)
[2017-11-22] MEDS ORDERED: Sod Phosphate/Sod Biphosphate (Adult) Enema 133 ML Bottle RECTAL PRN (09:00)
--- NOTE | 2017-11-22 09:21 | P.PCN ---
Date of procedure: 11/22/17 Pre-op diagnosis: Shock Post-op diagnosis: same Procedure: Right radial arterial line placement I wore a surgical cap, mask with protective eyewear, full gown and sterile gloves throughout the procedure. Right wrist region was prepped using chlorhexidine scrub and draped in sterile fashion. The right radial artery was identified by palpation. Anesthesia was achieved over the artery using 1% lidocaine. The introducer needle was inserted into the the radial artery and arterial blood was withdrawn. A guidewire was advanced into the introducer needle. A 16 cm 20-gauge arterial catheter was inserted over the guidewire using Seldinger technique and was sutured in place at 15 cm. A sterile central line dressing was placed over the catheter at the insertion site. The patient tolerated the procedure without any hemodynamic compromise, good arterial waveform was obtained. Anesthesia: local Surgeon: Jerrell Francois Estimated blood loss (mL): 1 Pathology: none sent Condition: critical Disposition: ICU
--- NOTE | 2017-11-22 09:23 | P.PCN ---
Date of procedure: 11/22/17 Pre-op diagnosis: Pulmonary edema, renal failure Post-op diagnosis: same Procedure: US guided right IJ Vas-Cath placement Central line checklist completed, timeout completed. I wore a surgical cap, mask with protective eyewear, full gown and sterile gloves throughout the procedure. Right internal jugular region was prepped using chlorhexidine scrub and draped in sterile fashion. The right IJ was identified using the ultrasound. Anesthesia was achieved over the vein using 1% lidocaine. The introducer needle was inserted into the right internal jugular under direct ultrasound visualization. Venous blood was withdrawn. The syringe was removed and a guidewire was advanced into the introducer needle. A small incision was made at the skin surface with a scalpel and the introducer needle was exchanged for a dilator over the guidewire. After appropriate dilation was obtained, the dilator was exchanged over the wire for a double lumen, 14F, 20 CM hemodialysis catheter. The wire was removed and the catheter was sutured in place at 18 cm. A sterile central line dressing was placed over the catheter at the insertion site. The patient tolerated the procedure without any hemodynamic compromise. At time of procedure completion, all ports aspirated and flushed properly. Post- procedure chest x-ray is pending at this time. Anesthesia: local Surgeon: Jerrell Francois Estimated blood loss (mL): 2 Pathology: none sent Condition: critical Disposition: ICU
[2017-11-22 09:31] LABS: ABG Base Excess -3.5 mmol/L (-2-2); ABG PCO2 62 mmHg (38-42); ABG PO2 110 mmHG (61-120)
--- NOTE | 2017-11-22 09:37 | XR ---
EXAM DATE: 11/22/2017 9:29 AM EDT AGE/SEX: 57 years / Male INDICATIONS: Central line placement. CLINICAL DATA: This is the patient's subsequent encounter. Patient reports that signs and symptoms h ave been present for 3 days and indicates a pain score of 0/10. MEDICAL/SURGICAL HISTORY: Cardiovascular disease. CABG. COMPARISON: [facility], CHEST 1V SINGLE AP, 11/22/2017. . FINDINGS: Endotracheal tube nasogastric tube and right neck dialysis catheter are present in good position. Lef t subclavian central line is stable. There is no evidence of pneumothorax or other complication. Card iac silhouette remains enlarged. There is persistent diffuse parenchymal opacity which may be edema. CONCLUSION: Satisfactory right neck central catheter placement. No complication. Electronically signed by: Alessandro Shen MD 11/22/2017 9:35 AM EDT
[2017-11-22] MEDS: Insulin NovoLOG Aspart Correctional Sugar Inj SQ SCH ×4 (09:55→20:13)
[2017-11-22] MEDS: Docusate Sodium 100 MG Capsule PO SCH ×2 (09:55→20:15)
[2017-11-22] MEDS: Albumin Human 25% Inj 100 ML IV.SIG SCH ×2 (09:59→20:12)
[2017-11-22] MEDS: Polyethylene Glycol 3350 17 GM Packet PO SCH (10:00)
[2017-11-22] MEDS: Multivitamin/Minerals Therapeutic Tablet PO SCH (10:00)
[2017-11-22 11:25] LABS: ABG Base Excess -3.7 mmol/L (-2-2); ABG PCO2 53 mmHg (38-42); ABG PO2 124 mmHg (61-120)
[2017-11-22] MEDS: Propofol 1000 mg/100 ml Inj 1,000 MG/100 ML BOTTLE IV.CONT PRN ×3 (11:49→20:13)
--- NOTE | 2017-11-22 12:01 | US ---
EXAM DATE: 11/22/2017 11:50 AM EDT AGE/SEX: 57 years / Male INDICATIONS: Increased BUN and Creatinine. CLINICAL DATA: This is the patient's initial encounter. Patient reports that signs and symptoms have been present for 1 day and indicates a pain score of 0/10. MEDICAL/SURGICAL HISTORY: Hypertension. CABG. COMPARISON: No prior exams available for comparison. MEASUREMENTS: Right Kidney:__11.1 x 5.7 x 6.8 cm Left Kidney:__11.6 x 4.8 x 6.2 cm FINDINGS: Right Kidney: Normal echotexture and cortical thickness. No mass or hydronephrosis. Left Kidney: Normal echotexture and cortical thickness. No mass or hydronephrosis. Bladder: Boland catheter is present. Bladder decompressed. CONCLUSION: 1. Kidneys unremarkable sonographically. 2. Other findings include trace free fluid around the liver and spleen with bilateral pleural effus ions. Liver enlarged to 20 cm. Gallbladder wall thickened with some pericholecystic fluid. Electronically signed by: Jony Green MD 11/22/2017 11:59 AM EDT
[2017-11-22 12:37] LABS: Amorphous Sediment,Urine Rare /hpf; Bacteria,Urine Occasional /hpf; Bilirubin,Urine Negative (Negative); Clarity,Urine Cloudy (Clear); Color,Urine Amber (Yellw/Straw); Glucose,Urine (UA) Negative (Negative); Hyaline Casts,Urine 11 /lpf (0-3); Leukocyte Esterase,Urine Negative (Negative); Nitrite,Urine Negative (Negative); Specific Gravity,Urine 1.014 (1.002-1.035); Squamous Epithelial Cell,Urine 1 /hpf (0-5)
--- NOTE | 2017-11-22 14:14 | P.PNCV ---
- Note Subjective/Hospital Course: 57-year-old white male with a history of hypertension, tobacco abuse, who was in his usual state of health up until 8:30 p.m. last night when he began to experience bilateral neck and substernal chest discomfort associated with shortness of breath without nausea or diaphoresis. The chest discomfort has persisted in a constant fashion until this morning when he presented to the [facility] at about 10:30. EKG showed evidence for acute anterior ST elevation myocardial infarction, so he was called as a STEMI alert. At this time, he states he has very little chest discomfort, but continues to have fairly severe upper mouth pain, which began last night as well. He continues to have mild to moderate dyspnea at rest. cath report : 1. Severe 3-vessel coronary artery disease, Right dominant system, Status post unsuccessful percutaneous coronary intervention attempt on the proximal LAD due to inability to wire the total occlusion, Suboptimal left ventriculogram. Probable small to moderate-sized area of apical akinesis. Ejection fraction is very roughly estimated at 35-40%. 11/19 for emergent surgery Emergency CABG x 3, GO to LAD - fair, SVG to OM - poor, SVG to D1 - poor, L EVH 4700cc crystalloid, 750cc cell saver, 1400cc EBL extubated after surgery 11/20 very poor pulm reserve, smokes 2 1/2 pk / day weaning off partial NRB mask gentle diuresis / eval for BB later today will need KIRSTEN prior to dc on ASA statin leave in CVICU today 11/21 increasing Resp distress, hypoxic with any exertion, sat 80's despite pulm toileting, CCM consulted placed on Bipap 20/11/ started on steroids diuresis / worsening indices, nephrology consulted chest tubes dc without difficultly keep in CVICU / amiodarone stopped sat's improved with Bipap 11/22 worsening pulm status this am / requiring intubation, also worsening renal indices with oliguria vascath placed by CCM/ for dialysis today. Now sedated on fentanly gtt on low dose Levophed to maintain map> 65 CCM following Objective: Vital Signs - 24 hr 11/21/17 15:00 11/21/17 15:32 11/21/17 15:34 Temperature 98.6 F Pulse Rate 83 83 Respiratory Rate 20 17 Blood Pressure 102/41 L Pulse Oximetry 83 L 94 L 11/21/17 18:16 11/21/17 19:00 11/21/17 20:00 Temperature 99.3 F Pulse Rate 81 81 85 Respiratory Rate 28 H 22 Blood Pressure 97/70 L Pulse Oximetry 96 92 L 11/21/17 20:17 11/21/17 22:30 11/21/17 22:49 Temperature Pulse Rate 82 136 H 120 H Respiratory Rate 20 22 Blood Pressure Pulse Oximetry 11/21/17 23:00 11/21/17 23:15 11/22/17 00:00 Temperature 98.7 F Pulse Rate 85 72 Respiratory Rate 22 Blood Pressure 96/66 L Pulse Oximetry 95 95 11/22/17 00:30 11/22/17 03:00 11/22/17 04:00 Temperature 98.5 F Pulse Rate 68 67 Respiratory Rate 22 Blood Pressure 102/67 Pulse Oximetry 96 95 11/22/17 04:10 11/22/17 07:00 11/22/17 07:05 Temperature 98.6 F Pulse Rate 83 Respiratory Rate 16 16 Blood Pressure 139/86 Pulse Oximetry 95 91 L 11/22/17 07:53 11/22/17 08:00 11/22/17 11:00 Temperature 98.3 F Pulse Rate 88 72 Respiratory Rate 18 20 Blood Pressure 115/63 Pulse Oximetry 94 L 96 11/22/17 11:41 Temperature Pulse Rate Respiratory Rate 20 Blood Pressure Pulse Oximetry 96 GENERAL: sedated on vent SKIN: Warm and dry. prevena dressing to chest HEAD: Atraumatic. Normocephalic. EYES: Pupils equal and round. No scleral icterus. No injection or drainage. ENT: No nasal bleeding or discharge. Mucous membranes pink and moist. NECK: Trachea midline. No JVD. CARDIOVASCULAR: Regular rate and rhythm. mild general edema RESPIRATORY: No accessory muscle use. Clear to auscultation. Breath sounds equal bilaterally. coarse bilateral breath sounds with exp wheezing / on Vent / orally intubated GASTROINTESTINAL: Abdomen soft, non-tender,slightly distended Hepatic and splenic margins not palpable. MUSCULOSKELETAL: Extremities without clubbing, cyanosis, or edema. No obvious deformities. NEUROLOGICAL: RASS -2 PSYCHIATRIC: sedated on vent Labs: Laboratory Results - last 12 hr 11/19/17 11/22/17 11/22/17 12:20 04:05 04:05 WBC 7.2 RBC 3.34 L Hgb 10.5 L Hct 30.6 L MCV 91.6 MCH 31.4 MCHC 34.3 RDW 13.5 Plt Count 119 L MPV 10.2 Puncture Site Patient Temperature O2 Saturation ABG pH ABG pCO2 ABG pO2 ABG HCO3 ABG O2 Content ABG Base Excess ABG Methemoglobin Hemoglobin Carboxyhemoglobin O2 Delivery Device Vent Setting Inspired O2 Critical Value Sodium 141 Potassium 4.1 Chloride 105 Carbon Dioxide 25.2 Anion Gap 11 BUN 75 H Creatinine 4.13 H Estimated GFR 15 L POC Glucose Random Glucose 150 H Calcium 8.1 L Magnesium 3.2 H D Urine Color Urine Clarity Urine pH Ur Specific [place] Urine Protein Urine Glucose (UA) Urine Ketones Urine Occult Blood Urine Nitrate Urine Bilirubin Urine Urobilinogen Ur Leukocyte Esterase Urine RBC Urine WBC Ur Squamous Epith Cells Amorphous Sediment Urine Bacteria Hyaline Casts Granular Casts Micro UA Comment Urine Culture Comments Hepatitis A IgM Ab Hep Bs Antigen Hep B Core IgM Ab Hep C IgG Ab MTS Gel Crossmatch See Detail 11/22/17 11/22/17 11/22/17 09:21 09:25 09:25 WBC RBC Hgb Hct MCV MCH MCHC RDW Plt Count MPV Puncture Site [place] Patient Temperature 98.6 O2 Saturation 94 ABG pH 7.20 L* ABG pCO2 62 H* ABG pO2 110 ABG HCO3 23 ABG O2 Content 15.5 ABG Base Excess -3.5 L ABG Methemoglobin 1.5 Hemoglobin 11.6 L Carboxyhemoglobin 0.5 O2 Delivery Device Ventilator Vent Setting See comments Inspired O2 100 Critical Value Yes Sodium Potassium Chloride Carbon Dioxide Anion Gap BUN Creatinine Estimated GFR POC Glucose Random Glucose Calcium Magnesium Urine Color [place] Urine Clarity Cloudy H Urine pH 5.0 Ur Specific [place] 1.014 Urine Protein 30 H Urine Glucose (UA) Negative Urine Ketones Negative Urine Occult Blood Large H Urine Nitrate Negative Urine Bilirubin Negative Urine Urobilinogen Less than 2 Ur Leukocyte Esterase Negative Urine RBC 21 H Urine WBC 4 Ur Squamous Epith Cells 1 Amorphous Sediment Rare H Urine Bacteria Occasional H Hyaline Casts 11 Granular Casts 2 Micro UA Comment Cath-culture ind Urine Culture Comments Cath-cult indicated Hepatitis A IgM Ab Cancelled Hep Bs Antigen Cancelled Hep B Core IgM Ab Cancelled Hep C IgG Ab Cancelled MTS Gel Crossmatch 11/22/17 11/22/17 10:45 11:53 WBC RBC Hgb Hct MCV MCH MCHC RDW Plt Count MPV Puncture Site [place] Patient Temperature 98.6 O2 Saturation 97 ABG pH 7.25 L* ABG pCO2 53 H* ABG pO2 124 H ABG HCO3 22 ABG O2 Content 14.2 ABG Base Excess -3.7 L ABG Methemoglobin 0.6 Hemoglobin 10.3 L Carboxyhemoglobin 0.8 O2 Delivery Device Ventilator Vent Setting See comments Inspired O2 100 Critical Value Yes Sodium Potassium Chloride Carbon Dioxide Anion Gap BUN Creatinine Estimated GFR POC Glucose 199 H Random Glucose Calcium Magnesium Urine Color Urine Clarity Urine pH Ur Specific [place] Urine Protein Urine Glucose (UA) Urine Ketones Urine Occult Blood Urine Nitrate Urine Bilirubin Urine Urobilinogen Ur Leukocyte Esterase Urine RBC Urine WBC Ur Squamous Epith Cells Amorphous Sediment Urine Bacteria Hyaline Casts Granular Casts Micro UA Comment Urine Culture Comments Hepatitis A IgM Ab Hep Bs Antigen Hep B Core IgM Ab Hep C IgG Ab MTS Gel Crossmatch Result Diagrams: 11/22/17 04:05 11/22/17 04:05 Telemetry: NSR - Plan (1) S/P CABG (coronary artery bypass graft) Plan: ASA, statin , no KIRSTEN with TORIBIO stop amiodrone diuresis pulm toileting (2) ST elevation myocardial infarction (STEMI) (4) Hypertensive kidney disease with stage 3 chronic kidney disease Plan: monitor indices, vascath placed for dialysis today nephrology consulted (5) Tobacco abuse Plan: smoking cessation (6) Acute respiratory failure Plan: now intubated on vent / per CCM nebs steroids sedation to maintain RASS -2 (2) ST elevation myocardial infarction (STEMI) Qualifiers: Involved coronary artery: LAD coronary artery Qualified Code(s): I21.02 - ST elevation (STEMI) myocardial infarction involving left anterior descending coronary artery
[2017-11-22 14:49] LABS: ABG Base Excess 1.1 mmol/L (-2-2); ABG PCO2 42 mmHg (38-42); ABG PO2 193 mmHg (61-120)
--- NOTE | 2017-11-22 16:48 | P.PNNP ---
Subjective Interval history: 57 year old with CAD/STEMI/S/P CABG with ARF intubated Physical Exam Vital signs: Vital Signs 11/21/17 18:16 11/21/17 19:00 11/21/17 20:00 Temperature 99.3 F Pulse Rate 81 81 85 Respiratory Rate 28 H 22 Blood Pressure 97/70 L Pulse Oximetry 96 92 L 11/21/17 20:17 11/21/17 22:30 11/21/17 22:49 Temperature Pulse Rate 82 136 H 120 H Respiratory Rate 20 22 Blood Pressure Pulse Oximetry 11/21/17 23:00 11/21/17 23:15 11/22/17 00:00 Temperature 98.7 F Pulse Rate 85 72 Respiratory Rate 22 Blood Pressure 96/66 L Pulse Oximetry 95 95 11/22/17 00:30 11/22/17 03:00 11/22/17 04:00 Temperature 98.5 F Pulse Rate 68 67 Respiratory Rate 22 Blood Pressure 102/67 Pulse Oximetry 96 95 11/22/17 04:10 11/22/17 07:00 11/22/17 07:05 Temperature 98.6 F Pulse Rate 83 Respiratory Rate 16 16 Blood Pressure 139/86 Pulse Oximetry 95 91 L 11/22/17 07:53 11/22/17 08:00 11/22/17 11:00 Temperature 98.3 F Pulse Rate 88 72 Respiratory Rate 18 20 Blood Pressure 115/63 Pulse Oximetry 94 L 96 11/22/17 11:41 11/22/17 14:28 11/22/17 15:00 Temperature 98.0 F Pulse Rate 64 Respiratory Rate 20 25 H 22 Blood Pressure 106/62 Pulse Oximetry 96 99 Intake & Output 11/21/17 11/22/17 11/22/17 18:59 06:59 18:59 Intake Total 350 / 350 370 / 370 300 / 300 Output Total 450 / 450 300 / 300 3500 / 3500 Balance -100 / -100 70 / 70 -3200 / -3200 Weight 113 kg Intake: IV 250 / 250 300 / 300 Precedex Inj 200 MCG In NS Inj 150 / 150 48 ML @ 0.2 MCG/KG/HR 5.77 mls/ hr IV.CONT TITRATE PRN Rx#: [id number] Diprivan 1000 mg/100 ml Inj 1, 100 / 100 000 mg In 100 ml @ 5 MCG/KG/MIN 3.39 mls/hr IV.CONT TITRATE PRN Rx#:[id number] Flexbumin 25% Inj 100 ML @ 60 100 / 100 100 / 100 mls/hr IV.SIG Q12H KATHIA Rx#: [id number] Maxipime Inj 1,000 MG In NS Inj 100 / 100 100 ML @ 200 mls/hr IV.SIG Q12H KATHIA Rx#:[id number] Oral 350 / 350 120 / 120 Output: Urine 450 / 450 300 / 300 Hemodialysis Amount 3500 / 3500 Other: # Bowel Movements 0 - Constitutional no acute distress - Routine HEENT Exam Head: Present: normocephalic - Routine Respiratory Exam Present: CTA bilaterally - Routine Cardiovascular Exam Present: RRR - Routine Abdominal Exam Present: soft, normoactive bowel sounds - Routine Extremities Exam Present: edema - Urinary Catheter Management Indwelling Temp Sensing Catheter Cath placed during this visit: yes, but has since been removed by the nurse Reason for continuing: Decision to DC catheter Insertion date: 11/19/17 Insertion time: 13:14 Removal date: 11/21/17 Removal time: 06:00 Indwelling Urethral Catheter Cath placed during this visit: yes Reason for continuing: Hourly intake/output Insertion date: 11/22/17 Insertion time: 08:30 Assessment and Plan - Assessment (1) Acute renal failure Code(s): N17.9 - Acute kidney failure, unspecified Status: Acute (2) CAD (coronary artery disease) Code(s): I25.10 - Atherosclerotic heart disease of [place] coronary artery without angina pectoris Status: Acute (3) Hypertensive kidney disease with stage 3 chronic kidney disease Code(s): I12.9 - Hypertensive chronic kidney disease with stage 1 through stage 4 chronic kidney disease, or unspecified chronic kidney disease; N18.3 - Chronic kidney disease, stage 3 (moderate) Status: Acute (4) S/P CABG (coronary artery bypass graft) Code(s): Z95.1 - Presence of aortocoronary bypass graft Status: Acute - Plan Patient started on hemodialysis and tolerating it UF 3.5 L , patient is intubated Next dialysis tomorrow Avoid nephrotoxic Agents Avoid contrast study follow labs
[2017-11-23] MEDS: Propofol 1000 mg/100 ml Inj 1,000 MG/100 ML BOTTLE IV.CONT PRN ×6 (02:00→22:38)
[2017-11-23 05:08] LABS: Hematocrit 31.2 % (39.0-51.0); Hemoglobin 10.7 gm/dL (13.0-17.0); Mean Corpuscular HGB Conc 34.3 % (32.0-36.0); Mean Corpuscular Hemoglobin 31.3 pg (27.0-34.0); Mean Platelet Volume 9.8 fL (7.0-11.0); Platelet Count 156 th/mm3 (150-450); Red Blood Count 3.42 mil/mm3 (4.50-5.90); White Blood Count 9.4 th/mm3 (4.0-11.0)
[2017-11-23] MEDS: MethylPREDNISolone Sod Succinate Inj 125 MG/2 ML Vial IV.PUSH SCH (05:20)
[2017-11-23 05:26] LABS: Calcium 7.4 mg/dL (8.5-10.1); Magnesium 3.6 mg/dL (1.5-2.5); Potassium 4.2 meq/L (3.5-5.1)
[2017-11-23 05:39] LABS: Total Protein 6.5 g/dL (6.4-8.2)
--- NOTE | 2017-11-23 05:53 | XR ---
EXAM DATE: 11/23/2017 5:40 AM EDT AGE/SEX: 57 years / Male INDICATIONS: Respiratory failure. CLINICAL DATA: This is the patient's initial encounter. Patient reports that signs and symptoms have been present for 3 days and indicates a pain score of 5/10. MEDICAL/SURGICAL HISTORY: None. None. COMPARISON: [facility] [place]ST 1V SINGLE AP, 11/22/2017. . FINDINGS: The patient is status post sternotomy. The heart size is mildly enlarged. There is increased density in the perihilar regions bilaterally. Aeration of the lungs appears to be improving. The ET tube, NG tube and left subclavian line and right internal jugular central lines are all well placed. A pneumot horax is not seen. CONCLUSION: Persistent central increased density likely related to edema. This appears to be improving. Electronically signed by: Alessandro Mcgarry MD 11/23/2017 5:52 AM EDT
[2017-11-23] MEDS: fentaNYL 10 mcg/mL Premix Drip 2,500 MCG/250 ML BAG IV.SIG PRN (06:03)
--- NOTE | 2017-11-23 08:07 | P.PNCC ---
Subjective Subjective Remarks/Hospital Course: 57-year-old male with a medical history significant for hypertension, smoking with probable COPD who was admitted on 11/19 with chest pain diagnosed to have a STEMI, underwent cardiac catheterization with unsuccessful PCI attempt on proximal LAD, LVEF 35-40% who was taken for emergent CABG by Dr. Lee on 11/19 and underwent CABG 3 with GO to LAD, SVG to OM, SVG to diagonal 1 and was successfully extubated after surgery on 11/19. Patient was noted to have hypoxia with shortness of breath requiring partial nonrebreather facemask on and was initiated on gentle diuresis however his breathing worsened overnight and critical care consult was requested due to worsening respiratory failure with O2 sats in the 80s this morning on a nonrebreather facemask. When I evaluated the patient in the ICU he was tachypneic and dyspneic using accessory muscles of respiration with bilateral wheezing. His O2 sats were 81% on a nonrebreather facemask. He was immediately given Solu-Medrol 125 mg IV stat and was started on duo nebs and was placed on BiPAP with which his O2 sats came up to the low 90s and his work of breathing appeared to improve. He was also started on Precedex in order to tolerate BiPAP. 11/22: Patient currently on BiPAP with 85% FiO2. Severe oliguria urine output only 300 mL last 12 hours. BUN 75 creatinine 4.1. Chest x-ray shows severe pulmonary edema. Proceeded with endotracheal intubation and placed on mechanical ventilation with PEEP of 10. Nephrology and initiate hemodialysis Subjective: 11/23 HD yesterday with 3.5 kg removal. CXR today with interval improvement but still some pulmonary edema. Plan for HD today and then CPAP trial and extubate if tolerated. Did make 250 urine overnight with aid of Bumex 1mg IV q12. Sedated with fentanyl and propofol and remains on levophed 3 mcg/min. Objective Vital Signs / I&O: Vital Signs 11/22/17 11:00 11/22/17 11:41 11/22/17 14:28 Temperature 98.3 F Pulse Rate 72 Respiratory Rate 20 20 25 H Blood Pressure 115/63 Pulse Oximetry 96 99 11/22/17 15:00 11/22/17 17:16 11/22/17 19:17 Temperature 98.0 F Pulse Rate 64 62 Respiratory Rate 22 21 21 Blood Pressure 106/62 Pulse Oximetry 97 97 11/22/17 19:20 11/22/17 20:00 11/22/17 23:10 Temperature 98.5 F 98.5 F Pulse Rate 69 65 Respiratory Rate 20 20 21 Blood Pressure 113/68 102/66 Pulse Oximetry 96 11/23/17 01:21 11/23/17 03:21 11/23/17 07:00 Temperature 98.5 F 99.1 F Pulse Rate 75 77 Respiratory Rate 21 22 22 Blood Pressure 119/78 118/65 Pulse Oximetry 97 Intake & Output 11/22/17 11/23/17 11/23/17 18:59 06:59 18:59 Intake Total 300 / 300 200 / 200 100 / 100 Output Total 4225 / 4225 275 / 275 Balance -3925 / -3925 -75 / -75 100 / 100 Weight 110 kg Intake: IV 300 / 300 200 / 200 100 / 100 Diprivan 1000 mg/100 ml Inj 1, 100 / 100 200 / 200 100 / 100 000 mg In 100 ml @ 5 MCG/KG/MIN 3.39 mls/hr IV.CONT TITRATE PRN Rx#:[id number] Flexbumin 25% Inj 100 ML @ 60 100 / 100 mls/hr IV.SIG Q12H KATHIA Rx#: [id number] Maxipime Inj 1,000 MG In NS Inj 100 / 100 100 ML @ 200 mls/hr IV.SIG Q12H KATHIA Rx#:[id number] Oral 0 / 0 Output: Urine 250 / 250 Hemodialysis Amount 3500 / 3500 Urine Amount (Catheter) 575 / 575 Indwelling Urethral Catheter 575 / 575 Gastric Drainage 150 / 150 25 / 25 Oral Orogastric Tube 150 / 150 25 / 25 Other: # Bowel Movements 0 Result Diagrams: 11/23/17 04:38 11/23/17 04:38 Objective Remarks: Drips: Propofol 30 mg/kg/min Fentanyl 100 mg/h Levophed 3 mcg/min PRBC tidal volume 600/20/I time 1/PEEP 10/FiO2 45%. Sats are 95%. GENERAL: Well-nourished, well-developed patient who is orotracheally intubated and sedated SKIN: Warm and dry. HEAD: Atraumatic. Normocephalic. EYES: Pupils equal and round. No scleral icterus. No injection or drainage. ENT: No nasal bleeding or discharge. Mucous membranes pink and moist. NECK: Trachea midline. No JVD. Vas-Cath in place right IJ, no erythema or drainage. Left subclavian introducer and central venous line in place. CARDIOVASCULAR: Regular rate and rhythm. No murmurs rubs or gallops. Negative pressure dressing over sternotomy site. RESPIRATORY: No accessory muscle use. Clear to auscultation. Breath sounds equal bilaterally. GASTROINTESTINAL: Abdomen soft, non-tender, nondistended. Bowel sounds present. : Boland in place with dark yellow urine output. MUSCULOSKELETAL: Extremities without clubbing, cyanosis,. Trace pedal edema. No groin hematoma NEUROLOGICAL: Awakens on sedation, nods to questions.. No obvious cranial nerve deficits. Moves all extremities to commands peer Assessment and Plan - Assessment and Plan Plan: ASSESSMENT: 57-year-old male with: Acute hypoxemic respiratory failure Acute kidney failure with oliguria Severe pulmonary edema COPD exacerbation STEMI status post three-vessel CABG postop day 2 Hypertension Ischemic cardiomyopathy, EF 35-40% PLAN: Neuro: -Postintubation propofol and fentanyl for sedation and vent synchrony and pain control Cardiovascular: Acute respiratory failure Pulmonary edema COPD -Levophed to keep map above 65. Continue Bumex -Status post 3 vessel CABG 11/19. CT surgery following. -Hold Beta-dave, continue aspirin 81 daily , atorvastatin 80 qhs per cardiology/CT surgery. -Holding KIRSTEN inhibitor in view of elevated creatinine. Pulmonary: -Patient intubated emergently 11/22 and placed on mechanical ventilation. -Started on hemodialysis 11/22. Chest x-ray shows interval full improvement but persistent pulmonary edema. Plan for repeat HD today. -Wean PEEP from 10 to 8. Spontaneous breathing trial later today -Sputum culture pending -Bronchodilators, IV Solu-Medrol started 11/21, currently at 60 mg IV every 6. Will taper to 40 mg IV q8. Budesonide 0.25 every 12 GI/liver: -Start Nepro and advance to goal rate of 50 mL/h. Follow-up nutrition recommendations. -Continue Protonix, bowel regimen Renal/: Acute kidney injury -Vas-Cath placed and started on hemodialysis 11/22. 3.5 kg's were removed. Plan for HD today. Strict intake output, monitor and replete electrolytes as indicated. Boland must remain in place for accurate monitoring of urine output in the setting of acute renal failure. ID: -Cefepime initiated 11/22 #2. Follow-up sputum and urine culture. Endocrine: -SSI ac/hs per CVS insulin protocol. Heme: -Follow CBC Prophylaxis: -PPI. Lovenox when appropriate from CV surgery standpoint. ACCESS: Right radial art line placed by case hardener 11/22 #2, left subclavian introducer and central venous line placed in OR 11/19 #5, R IJ Vas-Cath placed by case hardener 11/22 #2 Full code Level 3 follow-up
[2017-11-23] MEDS: Insulin NovoLOG Aspart Correctional Sugar Inj SQ SCH ×4 (08:18→21:44)
[2017-11-23] MEDS: Docusate Sodium 100 MG Capsule PO SCH ×2 (08:20→21:36)
[2017-11-23] MEDS: Albumin Human 25% Inj 100 ML IV.SIG SCH ×2 (08:20→21:37)
[2017-11-23] MEDS: Multivitamin/Minerals Therapeutic Tablet PO SCH (08:21)
[2017-11-23] MEDS: Polyethylene Glycol 3350 17 GM Packet PO SCH (08:21)
[2017-11-23] MEDS: MethylPREDNISolone Sod Succinate Inj 40 MG/ML Vial IV.PUSH SCH ×2 (09:14→16:40)
--- NOTE | 2017-11-23 09:21 | P.PNCV ---
- Note Subjective/Hospital Course: 57-year-old white male with a history of hypertension, tobacco abuse, who was in his usual state of health up until 8:30 p.m. last night when he began to experience bilateral neck and substernal chest discomfort associated with shortness of breath without nausea or diaphoresis. The chest discomfort has persisted in a constant fashion until this morning when he presented to the [facility] at about 10:30. EKG showed evidence for acute anterior ST elevation myocardial infarction, so he was called as a STEMI alert. At this time, he states he has very little chest discomfort, but continues to have fairly severe upper mouth pain, which began last night as well. He continues to have mild to moderate dyspnea at rest. cath report : 1. Severe 3-vessel coronary artery disease, Right dominant system, Status post unsuccessful percutaneous coronary intervention attempt on the proximal LAD due to inability to wire the total occlusion, Suboptimal left ventriculogram. Probable small to moderate-sized area of apical akinesis. Ejection fraction is very roughly estimated at 35-40%. 11/19 for emergent surgery Emergency CABG x 3, GO to LAD - fair, SVG to OM - poor, SVG to D1 - poor, L EVH 4700cc crystalloid, 750cc cell saver, 1400cc EBL extubated after surgery 11/20 very poor pulm reserve, smokes 2 1/2 pk / day weaning off partial NRB mask gentle diuresis / eval for BB later today will need KIRSTEN prior to dc on ASA statin leave in CVICU today 11/21 increasing Resp distress, hypoxic with any exertion, sat 80's despite pulm toileting, CCM consulted placed on Bipap 20/11/ started on steroids diuresis / worsening indices, nephrology consulted chest tubes dc without difficultly keep in CVICU / amiodarone stopped sat's improved with Bipap 11/22 worsening pulm status this am / requiring intubation, also worsening renal indices with oliguria vascath placed by CCM/ for dialysis today. Now sedated on fentanly gtt on low dose Levophed to maintain map> 65 CCM following 11/23 Clinically better this am HD yesterday with repeat today Vent wean as tolerated Greatly appreciate Critical care and Nephrology input Objective: Vital Signs - 24 hr 11/22/17 11:00 11/22/17 11:41 11/22/17 14:28 Temperature 98.3 F Pulse Rate 72 Respiratory Rate 20 20 25 H Blood Pressure 115/63 Pulse Oximetry 96 99 11/22/17 15:00 11/22/17 17:16 11/22/17 19:17 Temperature 98.0 F Pulse Rate 64 62 Respiratory Rate 22 21 21 Blood Pressure 106/62 Pulse Oximetry 97 97 11/22/17 19:20 11/22/17 20:00 11/22/17 23:10 Temperature 98.5 F 98.5 F Pulse Rate 69 65 Respiratory Rate 20 20 21 Blood Pressure 113/68 102/66 Pulse Oximetry 96 11/23/17 01:21 11/23/17 03:21 11/23/17 07:00 Temperature 98.5 F 99.1 F Pulse Rate 75 77 Respiratory Rate 21 22 22 Blood Pressure 119/78 118/65 Pulse Oximetry 97 Labs: Laboratory Results - last 12 hr 11/23/17 11/23/17 11/23/17 04:38 04:38 07:12 WBC 9.4 RBC 3.42 L Hgb 10.7 L Hct 31.2 L MCV 91.0 MCH 31.3 MCHC 34.3 RDW 14.0 Plt Count 156 D MPV 9.8 Sodium 142 Potassium 4.2 Chloride 103 Carbon Dioxide 25.0 Anion Gap 14 BUN 98 H Creatinine 5.67 H Estimated GFR 10 L POC Glucose 182 H Random Glucose 179 H Calcium 7.4 L* Prot Corrected Calcium 7.7 L Magnesium 3.6 H Total Protein 6.5 Result Diagrams: 11/23/17 04:38 11/23/17 04:38 - Plan (1) S/P CABG (coronary artery bypass graft) Plan: ASA, statin , no KIRSTEN with TORIBIO stop amiodrone diuresis pulm toileting (2) ST elevation myocardial infarction (STEMI) (4) Hypertensive kidney disease with stage 3 chronic kidney disease Plan: monitor indices, vascath placed for dialysis today nephrology consulted (5) Tobacco abuse Plan: smoking cessation (6) Acute respiratory failure Plan: now intubated on vent / per CCM nebs steroids sedation to maintain RASS -2 (2) ST elevation myocardial infarction (STEMI) Qualifiers: Involved coronary artery: LAD coronary artery Qualified Code(s): I21.02 - ST elevation (STEMI) myocardial infarction involving left anterior descending coronary artery
[2017-11-23 09:50] LABS: Albumin 2.9 g/dL (3.4-5.0); Calcium 7.3 mg/dL (8.5-10.1); Carbon Dioxide 27.5 meq/L (21.0-32.0); Phosphorus 6.6 mg/dL (2.5-4.9); Total Protein 5.9 g/dL (6.4-8.2)
[2017-11-23 10:33] LABS: Hepatitits B Surface Antigen Nonreactive (Nonreactive)
[2017-11-23 10:52] LABS: Hepatitis A IgM Antibody Nonreactive (Nonreactive)
[2017-11-23 11:01] LABS: Hematocrit 33.6 % (39.0-51.0); Hemoglobin 11.3 gm/dL (13.0-17.0); Lymph # (Auto) 0.2 th/mm3 (1.0-4.8); Lymph % (Auto) 1.6 % (9.0-44.0); Mean Corpuscular HGB Conc 33.5 % (32.0-36.0); Mean Corpuscular Hemoglobin 30.4 pg (27.0-34.0); Mean Corpuscular Volume 90.7 fL (80.0-100.0); Mean Platelet Volume 9.6 fL (7.0-11.0); Mono # (Auto) 1.5 th/mm3 (0.0-0.9); Mono % (Auto) 12.7 % (0.0-8.0); Neut # (Auto) 10.3 th/mm3 (1.8-7.7); Neut % (Auto) 85.7 % (16.0-70.0); Platelet Count 176 th/mm3 (150-450); Red Blood Count 3.71 mil/mm3 (4.50-5.90); Red Cell Distribution Width 14.3 % (11.6-17.2)
--- NOTE | 2017-11-23 11:28 | P.PNNP ---
Subjective Interval history: Remains intubated, seen on dialysis Physical Exam Vital signs: Vital Signs 11/22/17 11:41 11/22/17 14:28 11/22/17 15:00 Temperature 98.0 F Pulse Rate 64 Respiratory Rate 20 25 H 22 Blood Pressure 106/62 Pulse Oximetry 96 99 11/22/17 17:16 11/22/17 19:17 11/22/17 19:20 Temperature 98.5 F Pulse Rate 62 69 Respiratory Rate 21 21 20 Blood Pressure 113/68 Pulse Oximetry 97 97 11/22/17 20:00 11/22/17 23:10 11/23/17 01:21 Temperature 98.5 F Pulse Rate 65 Respiratory Rate 20 21 21 Blood Pressure 102/66 Pulse Oximetry 96 97 11/23/17 03:21 11/23/17 07:00 11/23/17 09:38 Temperature 98.5 F 99.1 F Pulse Rate 75 77 73 Respiratory Rate 22 22 25 H Blood Pressure 119/78 118/65 Pulse Oximetry 11/23/17 09:40 11/23/17 11:00 Temperature 98.7 F Pulse Rate 75 Respiratory Rate 23 22 Blood Pressure 127/73 Pulse Oximetry 97 Intake & Output 11/22/17 11/23/17 11/23/17 18:59 06:59 18:59 Intake Total 300 / 300 300 / 300 400 / 400 Output Total 4225 / 4225 275 / 275 Balance -3925 / -3925 25 / 25 400 / 400 Weight 110 kg Intake: IV 300 / 300 300 / 300 400 / 400 Diprivan 1000 mg/100 ml Inj 1, 100 / 100 200 / 200 100 / 100 000 mg In 100 ml @ 5 MCG/KG/MIN 3.39 mls/hr IV.CONT TITRATE PRN Rx#:[id number] Flexbumin 25% Inj 100 ML @ 60 100 / 100 100 / 100 100 / 100 mls/hr IV.SIG Q12H KATHIA Rx#: [id number] Maxipime Inj 1,000 MG In NS Inj 100 / 100 100 / 100 100 ML @ 200 mls/hr IV.SIG Q12H KATHIA Rx#:[id number] Levophed-Dextrose 4 mg/250 ml 0 / 0 Drip 4 mg In 250 ml @ 0 mls/hr IV.SIG .STK-MED ONE Rx#: [id number] Oral 0 / 0 Output: Urine 250 / 250 Hemodialysis Amount 3500 / 3500 Urine Amount (Catheter) 575 / 575 Indwelling Urethral Catheter 575 / 575 Gastric Drainage 150 / 150 25 / 25 Oral Orogastric Tube 150 / 150 25 / 25 Other: # Bowel Movements 0 - Constitutional no acute distress - Routine HEENT Exam Head: Present: normocephalic - Routine Neck Exam Present: supple - Routine Respiratory Exam Present: patient mechanically ventilated - Routine Cardiovascular Exam Present: RRR - Routine Abdominal Exam Present: soft - Routine Extremities Exam Comments: no edema - Routine Skin Exam Present: intact - Routine Neurological Exam sedated - Routine Psychiatric Exam Present: unable to assess - Urinary Catheter Management Indwelling Temp Sensing Catheter Cath placed during this visit: yes, but has since been removed by the nurse Reason for continuing: Decision to DC catheter Insertion date: 11/19/17 Insertion time: 13:14 Removal date: 11/21/17 Removal time: 06:00 Indwelling Urethral Catheter Cath placed during this visit: yes Reason for continuing: Hourly intake/output Insertion date: 11/22/17 Insertion time: 08:30 Assessment and Plan - Assessment (1) Acute renal failure Code(s): N17.9 - Acute kidney failure, unspecified Status: Acute (2) CAD (coronary artery disease) Code(s): I25.10 - Atherosclerotic heart disease of [place] coronary artery without angina pectoris Status: Acute (3) Hypertensive kidney disease with stage 3 chronic kidney disease Code(s): I12.9 - Hypertensive chronic kidney disease with stage 1 through stage 4 chronic kidney disease, or unspecified chronic kidney disease; N18.3 - Chronic kidney disease, stage 3 (moderate) Status: Acute (4) S/P CABG (coronary artery bypass graft) Code(s): Z95.1 - Presence of aortocoronary bypass graft Status: Acute - Plan Patient started on hemodialysis 11/22. 3.5 L UF yesterday, 2.5L UF tolerated today. Plan next HD Saturday - continue UF as tolerated. 250cc UOP/24 hours, on bumex. Continue to monitor UOP Avoid nephrotoxic Agents Avoid contrast study follow labs
[2017-11-23] MEDS ORDERED: Amiodarone Inj 150 MG in Dextrose 5% in Water Inj 97 ML IV.SIG ONE ×2 (12:40)
[2017-11-23] MEDS: Dexmedetomidine Inj 200 MCG in Sodium Chlor 0.9% Inj 48 ML IV.CONT PRN (17:33)
[2017-11-23] MEDS: Chlorhexidine 0.12% Oral Kit 15 ML UDC OROPHARYNG PRN (20:30)
[2017-11-24] MEDS: MethylPREDNISolone Sod Succinate Inj 40 MG/ML Vial IV.PUSH SCH ×3 (01:45→17:15)
[2017-11-24] MEDS: Propofol 1000 mg/100 ml Inj 1,000 MG/100 ML BOTTLE IV.CONT PRN ×5 (01:45→21:39)
[2017-11-24] MEDS: fentaNYL 10 mcg/mL Premix Drip 2,500 MCG/250 ML BAG IV.SIG PRN (05:40)
[2017-11-24 06:02] LABS: Hematocrit 30.4 % (39.0-51.0); Hemoglobin 10.4 gm/dL (13.0-17.0); Mean Corpuscular HGB Conc 34.4 % (32.0-36.0); Mean Corpuscular Hemoglobin 31.4 pg (27.0-34.0); Mean Corpuscular Volume 91.4 fL (80.0-100.0); Platelet Count 151 th/mm3 (150-450); Red Blood Count 3.32 mil/mm3 (4.50-5.90)
--- NOTE | 2017-11-24 06:31 | XR ---
EXAM DATE: 11/24/2017 6:26 AM EDT AGE/SEX: 57 years / Male INDICATIONS: Shortness of breath. CLINICAL DATA: This is the patient's subsequent encounter. Patient reports that signs and symptoms h ave been present for 4 - 6 days and indicates a pain score of 0/10. MEDICAL/SURGICAL HISTORY: None. None. COMPARISON: [facility], CHEST 1V SINGLE AP, 11/23/2017. . FINDINGS: The patient is status post sternotomy. The heart size is enlarged. ET tube, NG tube and right interna l jugular central line are well placed. There is persistent increased density seen in the mid and low er lungs. This finding appears unchanged. CONCLUSION: Persistent increased density at the mid and lower lungs likely related to underlying process such as edema. This appears stable. Electronically signed by: Alessandro Mcgarry MD 11/24/2017 6:30 AM EDT
[2017-11-24 06:33] LABS: Albumin 2.7 g/dL (3.4-5.0); Calcium 6.8 mg/dL (8.5-10.1); Carbon Dioxide 24.2 meq/L (21.0-32.0); Potassium 4.7 meq/L (3.5-5.1); Total Protein 6.5 g/dL (6.4-8.2)
[2017-11-24] MEDS: Insulin NovoLOG Aspart Correctional Sugar Inj SQ SCH ×4 (07:34→21:53)
[2017-11-24] MEDS: Multivitamin/Minerals Therapeutic Tablet PO SCH (08:55)
[2017-11-24] MEDS: Albumin Human 25% Inj 100 ML IV.SIG SCH (08:57)
[2017-11-24] MEDS: Polyethylene Glycol 3350 17 GM Packet PO SCH (08:58)
[2017-11-24] MEDS: Docusate Sodium 100 MG Capsule PO SCH (08:58)
--- NOTE | 2017-11-24 09:02 | P.PNCV ---
- Note Subjective/Hospital Course: 57-year-old white male with a history of hypertension, tobacco abuse, who was in his usual state of health up until 8:30 p.m. last night when he began to experience bilateral neck and substernal chest discomfort associated with shortness of breath without nausea or diaphoresis. The chest discomfort has persisted in a constant fashion until this morning when he presented to the [facility] at about 10:30. EKG showed evidence for acute anterior ST elevation myocardial infarction, so he was called as a STEMI alert. At this time, he states he has very little chest discomfort, but continues to have fairly severe upper mouth pain, which began last night as well. He continues to have mild to moderate dyspnea at rest. cath report : 1. Severe 3-vessel coronary artery disease, Right dominant system, Status post unsuccessful percutaneous coronary intervention attempt on the proximal LAD due to inability to wire the total occlusion, Suboptimal left ventriculogram. Probable small to moderate-sized area of apical akinesis. Ejection fraction is very roughly estimated at 35-40%. 11/19 for emergent surgery Emergency CABG x 3, GO to LAD - fair, SVG to OM - poor, SVG to D1 - poor, L EVH 4700cc crystalloid, 750cc cell saver, 1400cc EBL extubated after surgery 11/20 very poor pulm reserve, smokes 2 1/2 pk / day weaning off partial NRB mask gentle diuresis / eval for BB later today will need KIRSTEN prior to dc on ASA statin leave in CVICU today 11/21 increasing Resp distress, hypoxic with any exertion, sat 80's despite pulm toileting, CCM consulted placed on Bipap 20/11/ started on steroids diuresis / worsening indices, nephrology consulted chest tubes dc without difficultly keep in CVICU / amiodarone stopped sat's improved with Bipap 11/22 worsening pulm status this am / requiring intubation, also worsening renal indices with oliguria vascath placed by CCM/ for dialysis today. Now sedated on fentanly gtt on low dose Levophed to maintain map> 65 CCM following 11/23 Clinically better this am HD yesterday with repeat today Vent wean as tolerated Greatly appreciate Critical care and Nephrology input 11/24 Remains intubated and mechanically ventilated HD again today. Making some urine Hemodynamically stable D/w family Objective: Vital Signs - 24 hr 11/23/17 09:38 11/23/17 09:40 11/23/17 11:00 Temperature 98.7 F Pulse Rate 73 75 Respiratory Rate 25 H 23 22 Blood Pressure 127/73 Pulse Oximetry 97 11/23/17 14:26 11/23/17 14:38 11/23/17 15:00 Temperature 98.5 F Pulse Rate 67 64 Respiratory Rate 20 20 20 Blood Pressure 106/56 L Pulse Oximetry 97 11/23/17 17:30 11/23/17 19:00 11/23/17 20:36 Temperature 99 F Pulse Rate 65 69 Respiratory Rate 12 21 20 Blood Pressure 94/51 L Pulse Oximetry 94 L 95 11/23/17 23:00 11/24/17 00:45 11/24/17 03:00 Temperature 99.2 F 99.5 F Pulse Rate 67 64 Respiratory Rate 18 23 22 Blood Pressure 92/52 L 108/56 L Pulse Oximetry 93 L 11/24/17 03:49 11/24/17 07:00 Temperature 99.2 F Pulse Rate 62 66 Respiratory Rate 20 22 Blood Pressure 106/55 L Pulse Oximetry 94 L Labs: Laboratory Results - last 12 hr 11/23/17 11/23/17 11/24/17 16:48 21:29 05:22 WBC 9.0 RBC 3.32 L Hgb 10.4 L Hct 30.4 L MCV 91.4 MCH 31.4 MCHC 34.4 RDW 14.0 Plt Count 151 MPV 10.0 Sodium Potassium Chloride Carbon Dioxide Anion Gap BUN Creatinine Estimated GFR POC Glucose 191 H 173 H Random Glucose Calcium Prot Corrected Calcium Total Bilirubin AST ALT Alkaline Phosphatase Total Protein Albumin 11/24/17 11/24/17 05:22 07:30 WBC RBC Hgb Hct MCV MCH MCHC RDW Plt Count MPV Sodium 141 Potassium 4.7 Chloride 103 Carbon Dioxide 24.2 Anion Gap 14 BUN 108 H Creatinine 6.61 H Estimated GFR 9 L POC Glucose 202 H Random Glucose 200 H Calcium 6.8 L* Prot Corrected Calcium 7.1 L* D Total Bilirubin 2.8 H AST 115 H ALT 59 Alkaline Phosphatase 79 Total Protein 6.5 D Albumin 2.7 L Result Diagrams: 11/24/17 05:22 11/24/17 05:22 - Plan (1) S/P CABG (coronary artery bypass graft) Plan: ASA, statin , no KIRSTEN with TORIBIO stop amiodrone diuresis pulm toileting (2) ST elevation myocardial infarction (STEMI) (4) Hypertensive kidney disease with stage 3 chronic kidney disease Plan: monitor indices, vascath placed for dialysis today nephrology consulted (5) Tobacco abuse Plan: smoking cessation (6) Acute respiratory failure Plan: now intubated on vent / per CCM nebs steroids sedation to maintain RASS -2 (2) ST elevation myocardial infarction (STEMI) Qualifiers: Involved coronary artery: LAD coronary artery Qualified Code(s): I21.02 - ST elevation (STEMI) myocardial infarction involving left anterior descending coronary artery
[2017-11-24] MEDS: Dexmedetomidine Inj 200 MCG in Sodium Chlor 0.9% Inj 48 ML IV.CONT PRN ×3 (10:15→23:02)
[2017-11-24] MEDS: Albumin Human 25% Inj 100 ML IV.SIG PRN ×2 (10:44→11:19)
--- NOTE | 2017-11-24 10:50 | P.DIET ---
Nutritional Evaluation Type of nutrition evaluation: initial Nutrition consult regarding: Tube Feeding Objective - Diagnosis STEMI - Objective % IBW: 141 (AHN=227#) Body Weight Used for Calculations: IBW (78.2kg) Energy Needs - Lower Range (kCal/kg): 25 Energy Needs - Upper Range (kCal/kg): 30 Lower Limit kCal/kg (kCals): 1,955 Upper Limit kCal/kg (kCals): 2,346 Lower Limit Protein Factor (Grams per Kg): 1.2 Upper Limit Protein Factor (Grams per Kg): 1.5 Lower Protein Needs (Protein): 94 Upper Protein Needs (Protein): 117 Dietitian Reviewed in Medical Record: Curent medications, Intake & Output, Labs , Medical history, Tube feeding Diet Order: TF Only Objective Comments: Meds: Albumin, Bumex, Solumedrol, Reglan, Theragran M, Propofol Labs: 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 Underwent cardiac cath, which resulted in the need for an emergent CABG x3. Pt is now intubated/sedated and is receiving daily hemodialysis per Nephrology. Current TFs as stated above are appropriate. Pt is currently receiving approximately 895kcals w/ current propofol rate. Continue w/ Nepro @ 50mls/hr. Dietitian following. Recommendations: 1. Continue Nepro @ 55mls/hr. Dietitian to Monitor: Lab values, Renal labs, Intake & Output, Tube feeding tolerance, Weight change, Medical course
--- NOTE | 2017-11-24 11:04 | P.PNNP ---
Subjective Interval history: Remains intubated, sedated Physical Exam Vital signs: Vital Signs 11/23/17 11:00 11/23/17 14:26 11/23/17 14:38 Temperature 98.7 F Pulse Rate 75 67 Respiratory Rate 22 20 20 Blood Pressure 127/73 Pulse Oximetry 97 11/23/17 15:00 11/23/17 17:30 11/23/17 19:00 Temperature 98.5 F 99 F Pulse Rate 64 65 Respiratory Rate 20 12 21 Blood Pressure 106/56 L 94/51 L Pulse Oximetry 94 L 11/23/17 20:36 11/23/17 23:00 11/24/17 00:45 Temperature 99.2 F Pulse Rate 69 67 Respiratory Rate 20 18 23 Blood Pressure 92/52 L Pulse Oximetry 95 93 L 11/24/17 03:00 11/24/17 03:49 11/24/17 07:00 Temperature 99.5 F 99.2 F Pulse Rate 64 62 66 Respiratory Rate 22 20 22 Blood Pressure 108/56 L 106/55 L Pulse Oximetry 94 L 11/24/17 10:10 11/24/17 10:12 Temperature Pulse Rate 68 Respiratory Rate 22 Blood Pressure Pulse Oximetry 94 L Intake & Output 11/23/17 11/24/17 11/24/17 18:59 06:59 18:59 Intake Total 832 / 832 2 / 2052 200 / 200 Output Total 2850 / 2850 185 / 185 Balance -2017 / -2017 1867 / 1867 200 / 200 Weight 110 kg Intake: IV 702 / 702 600 / 600 200 / 200 Diprivan 1000 mg/100 ml Inj 1, 300 / 300 300 / 300 100 / 100 000 mg In 100 ml @ 5 MCG/KG/MIN 3.39 mls/hr IV.CONT TITRATE PRN Rx#:[id number] Flexbumin 25% Inj 100 ML @ 60 100 / 100 100 / 100 100 / 100 mls/hr IV.SIG Q12H [facility] Rx#: [id number] Maxipime Inj 1,000 MG In NS Inj 200 / 200 100 / 100 100 ML @ 200 mls/hr IV.SIG Q12H [facility] Rx#:[id number] Levophed-Dextrose 4 mg/250 ml 0 / 0 Drip 4 mg In 250 ml @ 0 mls/hr IV.SIG .STK-MED ONE Rx#: [id number] fentaNYL 10 mcg/mL Premix Drip 100 / 100 2,500 mcg In 250 ml @ 50 MCG/HR 5 mls/hr IV.SIG TITRATE PRN Rx #:[id number] Tube Feeding 100 / 100 522 / 522 Tube Irrigant 30 / 30 Water Bolus Amount 130 / 130 Other 800 / 800 Output: Hemodialysis Amount 2500 / 2500 Urine Amount (Catheter) 300 / 300 185 / 185 Indwelling Urethral Catheter 300 / 300 185 / 185 Gastric Drainage 50 / 50 Oral Orogastric Tube 50 / 50 Other: Other Intake Source Saline Solution # Bowel Movements 0 - Constitutional no acute distress - Routine HEENT Exam Head: Present: hematoma - Routine Neck Exam Present: supple - Routine Respiratory Exam Present: patient mechanically ventilated - Routine Cardiovascular Exam Present: RRR - Routine Abdominal Exam Present: soft - Routine Extremities Exam Comments: no edema - Routine Skin Exam Present: intact - Routine Psychiatric Exam Present: unable to assess - Urinary Catheter Management Indwelling Temp Sensing Catheter Cath placed during this visit: yes, but has since been removed by the nurse Reason for continuing: Decision to DC catheter Insertion date: 11/19/17 Insertion time: 13:14 Removal date: 11/21/17 Removal time: 06:00 Indwelling Urethral Catheter Cath placed during this visit: yes Reason for continuing: Hourly intake/output Insertion date: 11/22/17 Insertion time: 08:30 Assessment and Plan - Assessment (1) Acute renal failure Code(s): N17.9 - Acute kidney failure, unspecified Status: Acute (2) CAD (coronary artery disease) Code(s): I25.10 - Atherosclerotic heart disease of [place] coronary artery without angina pectoris Status: Acute (3) Hypertensive kidney disease with stage 3 chronic kidney disease Code(s): I12.9 - Hypertensive chronic kidney disease with stage 1 through stage 4 chronic kidney disease, or unspecified chronic kidney disease; N18.3 - Chronic kidney disease, stage 3 (moderate) Status: Acute (4) S/P CABG (coronary artery bypass graft) Code(s): Z95.1 - Presence of aortocoronary bypass graft Status: Acute - Plan Patient started on hemodialysis 11/22. 3.5 L Saturday, 2.5L UF yesterday. Further UF limited by tachycardia yesterday. Discussed with critical care - will do further HD today to assist with extubation. Will repeat HD tomorrow with UF as tolerated. Receiving 3L of fluids - minimize and concentrate drips as possible. Plan next HD Saturday - continue UF as tolerated. If ongoing issues with fluid removal, CRRT may be a consideration - however will re-attempt HD today and tomorrow. Minimal UOP Avoid nephrotoxic Agents Avoid contrast studies follow labs
--- NOTE | 2017-11-24 11:41 | P.PNCC ---
Subjective Subjective Remarks/Hospital Course: 57-year-old male with a medical history significant for hypertension, smoking with probable COPD who was admitted on 11/19 with chest pain diagnosed to have a STEMI, underwent cardiac catheterization with unsuccessful PCI attempt on proximal LAD, LVEF 35-40% who was taken for emergent CABG by Dr. Lee on 11/19 and underwent CABG 3 with GO to LAD, SVG to OM, SVG to diagonal 1 and was successfully extubated after surgery on 11/19. Patient was noted to have hypoxia with shortness of breath requiring partial nonrebreather facemask on and was initiated on gentle diuresis however his breathing worsened overnight and critical care consult was requested due to worsening respiratory failure with O2 sats in the 80s this morning on a nonrebreather facemask. When I evaluated the patient in the ICU he was tachypneic and dyspneic using accessory muscles of respiration with bilateral wheezing. His O2 sats were 81% on a nonrebreather facemask. He was immediately given Solu-Medrol 125 mg IV stat and was started on duo nebs and was placed on BiPAP with which his O2 sats came up to the low 90s and his work of breathing appeared to improve. He was also started on Precedex in order to tolerate BiPAP. 11/22: Patient currently on BiPAP with 85% FiO2. Severe oliguria urine output only 300 mL last 12 hours. BUN 75 creatinine 4.1. Chest x-ray shows severe pulmonary edema. Proceeded with endotracheal intubation and placed on mechanical ventilation with PEEP of 10. Nephrology and initiate hemodialysis 11/23 HD yesterday with 3.5 kg removal. CXR today with interval improvement but still some pulmonary edema. Plan for HD today and then CPAP trial and extubate if tolerated. Did make 250 urine overnight with aid of Bumex 1mg IV q12. Sedated with fentanyl and propofol and remains on levophed 3 mcg/min. Subjective: 11/24 Off pressors since yesterday morning. HD yesterday with 2.5 kg removal. Creatinine continues to rise and BUN 108. Discussed with nephrology, will dialyze again today. Adjusted meds to minimize intake. CPAP trial well tolerated yesterday evening from standpoint of respiratory mechanics (RSBI 17-20 ) but held off on evening extubation because patient remained volume overloaded and anxious. Utilizing precedex for SBTs. Will do SBT again today post- dialysis. In afternoon post HD with removal of 3.8 kg, patient was on CPAP trial 5/5 with excellent respiratory mechanics. Extubated to Ventimask, but patient had desaturations off positive pressure. Tried HFNC and Bipap as adjuncts because patient said he felt comfortable and wanted to avoid reintubation. Reintubated ~ 2.5- 3 hours post extubation. Objective Vital Signs / I&O: Vital Signs 11/23/17 14:26 11/23/17 14:38 11/23/17 15:00 Temperature 98.5 F Pulse Rate 67 64 Respiratory Rate 20 20 20 Blood Pressure 106/56 L Pulse Oximetry 97 11/23/17 17:30 11/23/17 19:00 11/23/17 20:36 Temperature 99 F Pulse Rate 65 69 Respiratory Rate 12 21 20 Blood Pressure 94/51 L Pulse Oximetry 94 L 95 11/23/17 23:00 11/24/17 00:45 11/24/17 03:00 Temperature 99.2 F 99.5 F Pulse Rate 67 64 Respiratory Rate 18 23 22 Blood Pressure 92/52 L 108/56 L Pulse Oximetry 93 L 11/24/17 03:49 11/24/17 07:00 11/24/17 10:10 Temperature 99.2 F Pulse Rate 62 66 68 Respiratory Rate 20 22 22 Blood Pressure 106/55 L Pulse Oximetry 94 L 11/24/17 10:12 Temperature Pulse Rate Respiratory Rate Blood Pressure Pulse Oximetry 94 L Intake & Output 11/23/17 11/24/17 11/24/17 18:59 06:59 18:59 Intake Total 832 / 832 2052 / 2052 400 / 400 Output Total 2850 / 2850 185 / 185 Balance -2017 / -2017 1867 / 1867 400 / 400 Weight 110 kg Intake: IV 702 / 702 600 / 600 400 / 400 Diprivan 1000 mg/100 ml Inj 1, 300 / 300 300 / 300 200 / 200 000 mg In 100 ml @ 5 MCG/KG/MIN 3.39 mls/hr IV.CONT TITRATE PRN Rx#:[id number] Flexbumin 25% Inj 100 ML @ 60 100 / 100 100 / 100 200 / 200 mls/hr IV.SIG WITH DIALYSIS PRN Rx#:[id number] Maxipime Inj 1,000 MG In NS Inj 200 / 200 100 / 100 100 ML @ 200 mls/hr IV.SIG Q12H [facility] Rx#:[id number] Levophed-Dextrose 4 mg/250 ml 0 / 0 Drip 4 mg In 250 ml @ 0 mls/hr IV.SIG .STK-MED ONE Rx#: [id number] fentaNYL 10 mcg/mL Premix Drip 100 / 100 2,500 mcg In 250 ml @ 50 MCG/HR 5 mls/hr IV.SIG TITRATE PRN Rx #:[id number] Tube Feeding 100 / 100 522 / 522 Tube Irrigant 30 / 30 Water Bolus Amount 130 / 130 Other 800 / 800 Output: Hemodialysis Amount 2500 / 2500 Urine Amount (Catheter) 300 / 300 185 / 185 Indwelling Urethral Catheter 300 / 300 185 / 185 Gastric Drainage 50 / 50 Oral Orogastric Tube 50 / 50 Other: Other Intake Source Saline Solution # Bowel Movements 0 Result Diagrams: 11/24/17 05:22 11/24/17 05:22 Objective Remarks: GENERAL: Well-nourished, well-developed patient who is orotracheally intubated and sedated SKIN: Warm and dry. HEAD: Atraumatic. Normocephalic. EYES: Pupils equal and round. No scleral icterus. No injection or drainage. ENT: No nasal bleeding or discharge. Mucous membranes pink and moist. NECK: Trachea midline. No JVD. Vas-Cath in place right IJ, no erythema or drainage. Left subclavian introducer and central venous line in place. CARDIOVASCULAR: Regular rate and rhythm. No murmurs rubs or gallops. Negative pressure dressing over sternotomy site. RESPIRATORY: No accessory muscle use. Clear to auscultation. Breath sounds equal bilaterally. GASTROINTESTINAL: Abdomen soft, non-tender, nondistended. Bowel sounds present. : Boland in place with dark yellow urine output. MUSCULOSKELETAL: Extremities without clubbing, cyanosis,. Trace pedal edema. No groin hematoma NEUROLOGICAL: Awakens on sedation, nods to questions.. No obvious cranial nerve deficits. Moves all extremities to commands. Assessment and Plan - Problem List (1) Acute renal failure Code(s): N17.9 - Acute kidney failure, unspecified Status: Acute (2) Acute respiratory failure Code(s): J96.00 - Acute respiratory failure, unspecified whether with hypoxia or hypercapnia Status: Acute (3) CAD (coronary artery disease) Code(s): I25.10 - Atherosclerotic heart disease of [place] coronary artery without angina pectoris Status: Acute (4) Hypertensive kidney disease with stage 3 chronic kidney disease Code(s): I12.9 - Hypertensive chronic kidney disease with stage 1 through stage 4 chronic kidney disease, or unspecified chronic kidney disease; N18.3 - Chronic kidney disease, stage 3 (moderate) Status: Chronic (5) S/P CABG (coronary artery bypass graft) Code(s): Z95.1 - Presence of aortocoronary bypass graft Status: Acute (6) ST elevation myocardial infarction (STEMI) Code(s): I21.3 - ST elevation (STEMI) myocardial infarction of unspecified site Status: Acute (7) Tobacco abuse Code(s): Z72.0 - Tobacco use Status: Acute - Assessment and Plan Plan: ASSESSMENT: 57-year-old male with: Acute hypoxemic respiratory failure Acute kidney failure with oliguria Severe pulmonary edema COPD exacerbation STEMI status post three-vessel CABG postop day 2 Hypertension Ischemic cardiomyopathy, EF 35-40% PLAN: Neuro: -Propofol and fentanyl for sedation and vent synchrony -Precedex during SBT. Likely continue precedex during early post-extubation due to anxiety Cardiovascular: Acute respiratory failure Pulmonary edema COPD -Off levophed since 11/23. Continue Bumex 1mg IV q8. All meds adjusted to minimize intake. -Status post 3 vessel CABG 11/19. CT surgery following. - continue aspirin 81 daily , atorvastatin 80 qhs per cardiology/CT surgery. -Holding KIRSTEN inhibitor in view of elevated creatinine. -Likely resume betablocker soon. Pulmonary: -Patient intubated emergently 11/22 and placed on mechanical ventilation. -Started on hemodialysis 11/22 and had 3.5 kg removal, 2.5 kg removal and will be dialyzed again today. - Spontaneous breathing trial later today -Sputum culture NGTD. -Bronchodilators, IV Solu-Medrol started 11/21, tapered to 40 mg IV q8 on 11/23. Budesonide 0.25 every 12 GI/liver: - Continue Nepro 50 mL/h. -Continue Protonix. -On colace/senna. No BM, will give lactulose 30 mL. Renal/: Acute kidney injury -Vas-Cath placed and started on hemodialysis 11/22 - 3.5 kg, 11/23 2.5 kg, 11/24 - HD today. Strict intake output, monitor and replete electrolytes as indicated. Boland must remain in place for accurate monitoring of urine output in the setting of acute renal failure. ID: -Cefepime initiated 11/22 #3 adjusted based on renal function, dose after dialysis. Urine and sputum culture NGTD. Endocrine: -SSI ac/hs per CVS insulin protocol. Heme: -Follow CBC Prophylaxis: -PPI. Lovenox when appropriate from CV surgery standpoint. ACCESS: Right radial art line placed by percussion welding machine operator 11/22 #3, left subclavian introducer and central venous line placed in OR 11/19 #6, R IJ Vas-Cath placed by percussion welding machine operator 11/22 #3 Discussed with nephrology, Dr. Palacios. Family updated. Full code Level 3 follow-up (6) ST elevation myocardial infarction (STEMI) Qualifiers: Involved coronary artery: LAD coronary artery Qualified Code(s): I21.02 - ST elevation (STEMI) myocardial infarction involving left anterior descending coronary artery
[2017-11-24] MEDS ORDERED: Metoprolol Inj 5 MG/5 ML Vial IV.PUSH ONE ×3 (18:30→19:03)
[2017-11-24] MEDS ORDERED: Metoprolol Inj 5 MG/5 ML Vial ONE ×2 (18:31→18:56)
[2017-11-24] MEDS ORDERED: Etomidate Inj 20 MG/10 ML Ampul IV.PUSH ONE (18:32)
--- NOTE | 2017-11-24 19:05 | P.PCN ---
Date of procedure: 11/24/17 Pre-op diagnosis: respiratory failure Procedure: PROCEDURE NOTE PROCEDURE: Endotracheal intubation INDICATION: Acute hypoxemic respiratory failure. DETAILS OF PROCEDURE: The patient was placed in optimal position and preoxygenated with 100% FiO2 via [id number]. Oximeter oxygen saturation of 92% was obtained prior to direct laryngoscopy. The patient was administered Etomidate 20 mg IV and Rocuronium 50 mg IV for RSI. Direct laryngoscopy was performed with a 3 Forbes laryngoscope blade and a grade I Cormack-Lehane view was obtained. On single attempt a size 8.0 endotracheal tube was visualized passing through the cords. Correct placement was confirmed with colorimetric CO2 detector. Breath sounds were equal bilaterally. No sounds auscultated over the stomach. The endotracheal tube was secured with a commercial tube mane at a depth of 24 cm at the lips. The patient was connected to the ventilator. The patient tolerated the procedure well without any apparent complication. Oxygen saturations were maintained greater than 85% at all times. Stat chest x-ray demonstrated satisfactory ETT position.
--- NOTE | 2017-11-24 19:31 | XR ---
EXAM DATE: 11/24/2017 7:27 PM EDT AGE/SEX: 57 years / Male INDICATIONS: Respiratory distress. CLINICAL DATA: This is the patient's subsequent encounter. Patient reports that signs and symptoms h ave been present for 4 - 6 days and indicates a pain score of Nonresponsive. MEDICAL/SURGICAL HISTORY: None. CABG. COMPARISON: [facility], CHEST 1V SINGLE AP, 11/24/2017. [facility], CHEST 1V SINGLE AP, 11/23/2017. [facility], CHEST 1V SINGLE AP, 11/22/2017. . FINDINGS: ET tube tip 2.5 cm above the oralia. Right internal jugular catheter tip at the cavoatrial junction. Interval increase in the amount of opacity in the central two thirds of both lungs, now with consolid ation and stop cardiomegaly is stable. There is loss of delineation of portions of the left hemidiaph ragm. CONCLUSION: Increasing severity pulmonary edema. Electronically signed by: Romaine Horta MD 11/24/2017 7:30 PM EDT
[2017-11-24 21:57] LABS: ABG Base Excess 0.2 mmol/L (-2-2); ABG PCO2 53 mmHg (38-42); ABG PO2 103 mmHg (61-120)
[2017-11-24] MEDS: Chlorhexidine 0.12% Oral Kit 15 ML UDC OROPHARYNG PRN (22:51)
[2017-11-25] MEDS: Docusate Sodium 100 MG Capsule PO SCH ×2 (00:17→09:05)
[2017-11-25] MEDS: Propofol 1000 mg/100 ml Inj 1,000 MG/100 ML BOTTLE IV.CONT PRN ×3 (00:30→05:58)
[2017-11-25] MEDS: Dexmedetomidine Inj 200 MCG in Sodium Chlor 0.9% Inj 48 ML IV.CONT PRN ×3 (01:45→09:46)
[2017-11-25] MEDS: MethylPREDNISolone Sod Succinate Inj 40 MG/ML Vial IV.PUSH SCH ×2 (01:46→09:05)
--- NOTE | 2017-11-25 04:52 | XR ---
EXAM DATE: 11/25/2017 4:23 AM EDT AGE/SEX: 57 years / Male INDICATIONS: Shortness of breath, possible pulmonary disease. CLINICAL DATA: This is the patient's subsequent encounter. Patient reports that signs and symptoms h ave been present for 1 week and indicates a pain score of Nonresponsive. MEDICAL/SURGICAL HISTORY: None. CABG. COMPARISON: [facility], CHEST 1V SINGLE AP, 11/24/2017. . FINDINGS: A single AP view of the chest demonstrates the tip of the endotracheal tube 4 cm from the oralia. Lef t subclavian central line. Nasogastric tube. Right-sided central line. Mild cardiomegaly with pulmona ry vascular engorgement. Patchy areas of intralobular infiltrates throughout both lungs most pronounc ed within the bases. The infiltrates have improved from the prior study somewhat. No effusions. CONCLUSION: Radiographic pattern suggesting pulmonary edema with some improvement from the prior study. Electronically signed by: Romaine Hunter MD 11/25/2017 4:50 AM EDT
[2017-11-25 06:04] LABS: Hematocrit 32.4 % (39.0-51.0); Mean Corpuscular Hemoglobin 31.2 pg (27.0-34.0); Mean Corpuscular Volume 91.7 fL (80.0-100.0); Mean Platelet Volume 10.2 fL (7.0-11.0); Platelet Count 158 th/mm3 (150-450); Red Blood Count 3.54 mil/mm3 (4.50-5.90); Red Cell Distribution Width 13.8 % (11.6-17.2)
[2017-11-25 06:24] LABS: Albumin 3.1 g/dL (3.4-5.0); Calcium 7.3 mg/dL (8.5-10.1); Carbon Dioxide 24.8 meq/L (21.0-32.0); Potassium 5.8 meq/L (3.5-5.1); Total Protein 6.7 g/dL (6.4-8.2)
--- NOTE | 2017-11-25 08:16 | P.PNCC ---
Subjective Subjective Remarks/Hospital Course: 57-year-old male with a medical history significant for hypertension, smoking with probable COPD who was admitted on 11/19 with chest pain diagnosed to have a STEMI, underwent cardiac catheterization with unsuccessful PCI attempt on proximal LAD, LVEF 35-40% who was taken for emergent CABG by Dr. Lee on 11/19 and underwent CABG 3 with GO to LAD, SVG to OM, SVG to diagonal 1 and was successfully extubated after surgery on 11/19. Patient was noted to have hypoxia with shortness of breath requiring partial nonrebreather facemask on and was initiated on gentle diuresis however his breathing worsened overnight and critical care consult was requested due to worsening respiratory failure with O2 sats in the 80s this morning on a nonrebreather facemask. When I evaluated the patient in the ICU he was tachypneic and dyspneic using accessory muscles of respiration with bilateral wheezing. His O2 sats were 81% on a nonrebreather facemask. He was immediately given Solu-Medrol 125 mg IV stat and was started on duo nebs and was placed on BiPAP with which his O2 sats came up to the low 90s and his work of breathing appeared to improve. He was also started on Precedex in order to tolerate BiPAP. 11/22: Patient currently on BiPAP with 85% FiO2. Severe oliguria urine output only 300 mL last 12 hours. BUN 75 creatinine 4.1. Chest x-ray shows severe pulmonary edema. Proceeded with endotracheal intubation and placed on mechanical ventilation with PEEP of 10. Nephrology and initiate hemodialysis 11/23 HD yesterday with 3.5 kg removal. CXR today with interval improvement but still some pulmonary edema. Plan for HD today and then CPAP trial and extubate if tolerated. Did make 250 urine overnight with aid of Bumex 1mg IV q12. Sedated with fentanyl and propofol and remains on levophed 3 mcg/min. 11/24 Off pressors since yesterday morning. HD yesterday with 2.5 kg removal. Creatinine continues to rise and BUN 108. Discussed with nephrology, will dialyze again today. Adjusted meds to minimize intake. CPAP trial well tolerated yesterday evening from standpoint of respiratory mechanics (RSBI 17-20 ) but held off on evening extubation because patient remained volume overloaded and anxious. Utilizing precedex for SBTs. Will do SBT again today post- dialysis. In afternoon post HD with removal of 3.8 kg, patient was on CPAP trial / with excellent respiratory mechanics. Extubated to Ventimask, but patient had desaturations off positive pressure. Tried HFNC and Bipap as adjuncts because patient said he felt comfortable and wanted to avoid reintubation. Reintubated ~ 2.5- 3 hours post extubation. Subjective: 11/25: Patient remains intubated and sedated. T-max of 101.2. Had HD yesterday. FiO2 currently at 0.4, and PEEP of 10. CVP is 11, map is currently 62. Cardiac index at 1.7. Sedation is achieved with propofol, fentanyl and dexmedetomidine. Objective Vital Signs / I&O: Vital Signs 11/24/17 10:10 11/24/17 10:12 11/24/17 11:00 Temperature 99.0 F Pulse Rate 68 61 Respiratory Rate 22 23 Blood Pressure 130/67 Pulse Oximetry 94 L 11/24/17 15:00 11/24/17 15:34 11/24/17 15:40 Temperature 99.4 F Pulse Rate 78 80 Respiratory Rate 23 22 Blood Pressure 137/70 Pulse Oximetry 86 L 11/24/17 15:50 11/24/17 16:05 11/24/17 16:18 Temperature Pulse Rate Respiratory Rate Blood Pressure Pulse Oximetry 90 L 92 L 93 L 11/24/17 17:22 11/24/17 17:55 11/24/17 17:57 Temperature Pulse Rate 90 95 H Respiratory Rate 24 28 H Blood Pressure Pulse Oximetry 85 L 11/24/17 18:00 11/24/17 18:10 11/24/17 18:45 Temperature Pulse Rate Respiratory Rate Blood Pressure Pulse Oximetry 86 L 88 L 91 L 11/24/17 19:00 11/24/17 20:00 11/24/17 20:43 Temperature 97.8 F Pulse Rate 62 67 Respiratory Rate 18 20 Blood Pressure 132/70 Pulse Oximetry 92 L 95 11/24/17 22:09 11/24/17 23:00 11/25/17 00:00 Temperature 98.4 F Pulse Rate 58 L 58 L Respiratory Rate 23 Blood Pressure 105/54 L 105/54 L Pulse Oximetry 99 11/25/17 00:24 11/25/17 00:28 11/25/17 03:00 Temperature 99.4 F Pulse Rate 54 L Respiratory Rate 22 22 Blood Pressure 100/51 L Pulse Oximetry 99 98 11/25/17 03:44 11/25/17 05:34 11/25/17 07:00 Temperature Pulse Rate 55 L 56 L Respiratory Rate 22 Blood Pressure Pulse Oximetry 97 97 11/25/17 07:29 Temperature Pulse Rate 96 H Respiratory Rate 22 Blood Pressure Pulse Oximetry 97 Intake & Output 11/24/17 11/25/17 11/25/17 18:59 06:59 18:59 Intake Total 1261 / 1261 760 / 760 Output Total 3800 / 3800 200 / 200 Balance -2539 / -2539 560 / 560 Weight 106 kg Intake: IV 750 / 750 640 / 640 Precedex Inj 200 MCG In NS Inj 50 / 50 150 / 150 48 ML @ 0.2 MCG/KG/HR 5.5 mls/ hr IV.CONT TITRATE PRN Rx#: [id number] Diprivan 1000 mg/100 ml Inj 1, 200 / 200 400 / 400 000 mg In 100 ml @ 5 MCG/KG/MIN 3.39 mls/hr IV.CONT TITRATE PRN Rx#:[id number] Flexbumin 25% Inj 100 ML @ 60 300 / 300 mls/hr IV.SIG WITH DIALYSIS PRN Rx#:[id number] Levophed-Dextrose 4 mg/250 ml 200 / 200 Drip 4 mg In 250 ml @ 2 MCG/MIN 7.5 mls/hr IV.SIG TITRATE PRN Rx#:[id number] fentaNYL 10 mcg/mL Premix Drip 90 / 90 2,500 mcg In 250 ml @ 50 MCG/HR 5 mls/hr IV.SIG TITRATE PRN Rx #:[id number] Tube Feeding 391 / 391 Tube Irrigant 120 / 120 120 / 120 Output: Hemodialysis Amount 3500 / 3500 Urine Amount (Catheter) 300 / 300 200 / 200 Indwelling Urethral Catheter 300 / 300 200 / 200 Other: # Bowel Movements 0 Result Diagrams: 11/25/17 18:00 11/25/17 15:52 Objective Remarks: GENERAL: Middle-aged gentleman, intubated and sedated, ill-appearing. SKIN: Warm and dry. HEAD: Atraumatic. Normocephalic. EYES: Pupils are equal and reactive. Sclerae are anicteric. No injection or drainage. ENT: No nasal bleeding or discharge. Orally intubated. NECK: Trachea midline. No JVD appreciated. Right IJ Vas-Cath -site remains clean. Left subclavian central line -exit site clean as well. CARDIOVASCULAR: Regular S1 and S2, no murmurs appreciated. Sternotomy site with negative pressure dressing. RESPIRATORY: Coarse breath sounds bilateral. No wheezes. Good air entry. GASTROINTESTINAL: Abdomen soft, non-tender, nondistended. Bowel sounds present. MUSCULOSKELETAL: Extremities are warm and well perfused. Trace edema. Pulses are present. NEUROLOGICAL: Sedated and intubated, grimaces to pain. Pupils are equal and reactive. Assessment and Plan - Assessment and Plan Plan: ASSESSMENT: 57-year-old male with: 1. Status post CABG 3 on 11/19 2. Ischemic cardiomyopathy with reduced ejection fraction 3. Circulatory shock 4. Acute hypoxemic respiratory failure requiring multiple intubations 5. Acute kidney injury with oliguria, requiring HD 6. Possible COPD exacerbation 7. Pulmonary edema PLAN: Neuro: -Propofol and fentanyl for sedation and vent synchrony. We will attempt to wean propofol and continue Precedex if BP allows Cardiovascular: Circulatory shock STEMI status post three-vessel CABG 11/19 Ischemic cardiomyopathy, EF 35-40% -Restart norepinephrine to keep map above 65 -Check venous blood gas for CV O2 - continue aspirin 81 daily , atorvastatin 80 qhs per cardiology/CT surgery. -Holding KIRSTEN inhibitor in view of elevated creatinine. -Hold beta dave due to borderline low heart rate and BP Pulmonary: Acute respiratory failure -unchanged, still requiring high PEEP Pulmonary edema COPD -Continue PRVC at 550/22/40%, PEEP of 10. PIP is 21, patient is synchronized with the vent, without auto PEEP -Patient reintubated emergently 11/24 after 2-1/2 hours of being extubated and placed back on mechanical ventilation. -Started on hemodialysis 11/22 -Bronchodilators, IV Solu-Medrol started 11/21, tapered to 40 mg IV q8 on 11/23. Budesonide 0.25 every 12 and bronchodilators GI/liver: -Restart Nepro. -Continue Protonix. -On colace/senna. Renal/: Acute kidney injury Hyperkalemia -RN to notify nephrology. Needs HD today for hyperkalemia. Receiving calcium. Rest of management per nephrology -Vas-Cath placed and started on hemodialysis 11/22 - 3.5 kg, 11/23 2.5 kg, 11/24 - HD as well -Strict intake output, monitor and replete electrolytes as indicated. -Boland must remain in place for accurate monitoring of urine output in the setting of acute renal failure. ID: Had episode of fever up to 101.2 -Repeat blood, sputum and urine cultures -Start vancomycin -Continue cefepime initiated 11/22 #3 adjusted based on renal function, dose after dialysis. Endocrine: -SSI ac/hs per CVS insulin protocol. Heme: -Follow CBC Prophylaxis: -PPI. Lovenox when appropriate from CV surgery standpoint. ACCESS: Right radial art line placed by carpentry foreman 11/22 #3, left subclavian introducer and central venous line placed in OR 11/19 #6, R IJ Vas-Cath placed by carpentry foreman 11/22 #3 No family present at bedside. Full code Addendum 12PM: Patient had refractory VT/VF cardiac arrest -please see CPR note for additional information. Worsening hypoxia initially requiring 100% FiO2 and high PEEP but despite that O2 sat in the low 80s therefore patient was switched to APRV with immediate improvement in oxygenation. Patient is currently on amiodarone and lidocaine drips, norepinephrine for BP support at 2.5 mcg/min and CVVHD is currently being initiated. Stat labs reviewed. Start bicarb drip We will adjust ventilator settings, now on TH 5, T low 0.6, Phigh 26, P low 0, PS 5 EP consult Cardiology contacted CT surgeon present at bedside throughout the code and the present time Serial ABG and lactic acid Discussed in detail with family present at bedside. I spent 70 minutes of critical care time managing life-threatening oxygenation, pressors, antiarrhythmics, severe acidosis. Patient is at extremely high risk for further decompensation and . Family understand and they are appreciated of all our resuscitative efforts. Addendum 6PM: Patient continued to decompensate throughout the day despite maximum support. He continues to have refractory VT/VF requiring shocks every minute. He is currently on amiodarone, lidocaine, epi and norepi for BP support. He underwent emergent IABP placement by Dr. Rojas at bedside and was seen by EP he was given additional lidocaine bolus. His lactic acid is trending down and oxygenation is significantly improved, now on 50% O2, as well as his metabolic and respiratory acidosis. Multiple attempts to continue CVVH ended up with VT/VF therefore it was stopped. Rug Dyer returned to evaluate patient. Multiple calcium and mag given as well as insulin and D50 X 2. Insulin drip started as well. Cardiology is taking the patient for Impella placement and cath if possible. Patient continues to require pressor support, bicarb drip multiple antiarrhythmics. EP was contacted again by CT surgeon. Dr. Rojas tried to contact [facility] in [place] for ECMO support in he is awaiting call back. Palliative service has been consulted. Fentanyl drip started for pain control. Patient is still awake, following some commands. Discussed in detail with son, sister, cousin at bedside throughout the day. They are very appreciative of all our efforts. Remains critically ill and he will likely not survive this day. Family understands. I spent an additional 35 minutes of critical care time managing shock, respiratory failure, acidosis, refractory VT/VF.
[2017-11-25] MEDS ORDERED: Vancomycin Consult Pharmacy OTHER SCH (08:24)
[2017-11-25] MEDS: Insulin NovoLOG Aspart Correctional Sugar Inj SQ SCH (08:45)
[2017-11-25] MEDS: Multivitamin/Minerals Therapeutic Tablet PO SCH (09:04)
[2017-11-25] MEDS: Polyethylene Glycol 3350 17 GM Packet PO SCH (09:05)
[2017-11-25 09:09] LABS: Bacteria,Urine Rare /hpf; Bilirubin,Urine Negative (Negative); Clarity,Urine Cloudy (Clear); Color,Urine Yellow (Yellw/Straw); Glucose,Urine (UA) Negative (Negative); Hyaline Casts,Urine 3 /lpf (0-3); Leukocyte Esterase,Urine Trace (Negative); Nitrite,Urine Negative (Negative); Specific Gravity,Urine 1.016 (1.002-1.035); Squamous Epithelial Cell,Urine 1 /hpf (0-5)
[2017-11-25] MEDS ORDERED: Calcium Chloride Inj 1 GM/10 ML Syringe IV.PUSH ONE ×2 (09:30→23:34)
[2017-11-25] MEDS ORDERED: Propofol Inj 500 MG/50 ML Vial ONE (09:42)
[2017-11-25] MEDS ORDERED: DOBUTamine 250 MG/250 ML Premx 250 MG/250 ML BAG IV.CONT SCH (10:00)
--- NOTE | 2017-11-25 10:35 | P.PNCV ---
- Note CVT: Post Op Day #: 6 Subjective/Hospital Course: 57-year-old white male with a history of hypertension, tobacco abuse, who was in his usual state of health up until 8:30 p.m. last night when he began to experience bilateral neck and substernal chest discomfort associated with shortness of breath without nausea or diaphoresis. The chest discomfort has persisted in a constant fashion until this morning when he presented to the [place] [facility] at about 10:30. EKG showed evidence for acute anterior ST elevation myocardial infarction, so he was called as a STEMI alert. At this time, he states he has very little chest discomfort, but continues to have fairly severe upper mouth pain, which began last night as well. He continues to have mild to moderate dyspnea at rest. cath report : 1. Severe 3-vessel coronary artery disease, Right dominant system, Status post unsuccessful percutaneous coronary intervention attempt on the proximal LAD due to inability to wire the total occlusion, Suboptimal left ventriculogram. Probable small to moderate-sized area of apical akinesis. Ejection fraction is very roughly estimated at 35-40%. 11/19 for emergent surgery Emergency CABG x 3, GO to LAD - fair, SVG to OM - poor, SVG to D1 - poor, L EVH 4700cc crystalloid, 750cc cell saver, 1400cc EBL extubated after surgery 11/20 very poor pulm reserve, smokes 2 1/2 pk / day weaning off partial NRB mask gentle diuresis / eval for BB later today will need KIRSTEN prior to dc on ASA statin leave in CVICU today 11/21 increasing Resp distress, hypoxic with any exertion, sat 80's despite pulm toileting, CCM consulted placed on Bipap 20/11/ started on steroids diuresis / worsening indices, nephrology consulted chest tubes dc without difficultly keep in CVICU / amiodarone stopped sat's improved with Bipap 11/22 worsening pulm status this am / requiring intubation, also worsening renal indices with oliguria vascath placed by CCM/ for dialysis today. Now sedated on fentanly gtt on low dose Levophed to maintain map> 65 CCM following 11/23 Clinically better this am HD yesterday with repeat today Vent wean as tolerated Greatly appreciate Critical care and Nephrology input 11/24 Remains intubated and mechanically ventilated HD again today. Making some urine Hemodynamically stable D/w family 11/25 remains on vent PRVC mode 40% one gram ca+ chloride given on fentanly / propofol low dose Levophed CCM following 11/25/17 1530 Patient developed refractory Vfib/VT this morning acutely requiring CPR and ACLS measures. He was ultimately resuscitated, but has been unstable with recurrent VT/VF episodes treated with amiodarone, lidocaine infusions with as needed defibrillation. He remains unstable since the first episode ~10 AM. Objective: Vital Signs - 24 hr 11/24/17 11:00 11/24/17 15:00 11/24/17 15:34 Temperature 99.0 F 99.4 F Pulse Rate 61 78 80 Respiratory Rate 23 23 22 Blood Pressure 130/67 137/70 Pulse Oximetry 11/24/17 15:40 11/24/17 15:50 11/24/17 16:05 Temperature Pulse Rate Respiratory Rate Blood Pressure Pulse Oximetry 86 L 90 L 92 L 11/24/17 16:18 11/24/17 17:22 11/24/17 17:55 Temperature Pulse Rate 90 95 H Respiratory Rate 24 28 H Blood Pressure Pulse Oximetry 93 L 11/24/17 17:57 11/24/17 18:00 11/24/17 18:10 Temperature Pulse Rate Respiratory Rate Blood Pressure Pulse Oximetry 85 L 86 L 88 L 11/24/17 18:45 11/24/17 19:00 11/24/17 20:00 Temperature 97.8 F Pulse Rate 62 Respiratory Rate 18 Blood Pressure 132/70 Pulse Oximetry 91 L 92 L 11/24/17 20:43 11/24/17 22:09 11/24/17 23:00 Temperature Pulse Rate 67 58 L Respiratory Rate 20 Blood Pressure 105/54 L Pulse Oximetry 95 99 11/25/17 00:00 11/25/17 00:24 11/25/17 00:28 Temperature 98.4 F Pulse Rate 58 L Respiratory Rate 23 22 Blood Pressure 105/54 L Pulse Oximetry 99 98 11/25/17 03:00 11/25/17 03:44 11/25/17 05:34 Temperature 99.4 F Pulse Rate 54 L 55 L Respiratory Rate 22 22 Blood Pressure 100/51 L Pulse Oximetry 97 97 11/25/17 07:00 11/25/17 07:29 11/25/17 08:00 Temperature 101.2 F H Pulse Rate 56 L 96 H Respiratory Rate 22 22 Blood Pressure 96/50 L Pulse Oximetry 97 96 GENERAL: sedated on vent RASS -2 SKIN: Warm and dry. HEAD: Normocephalic. EYES: No scleral icterus. No injection or drainage. pupils 2 mm midline NECK: Supple, trachea midline. No JVD or lymphadenopathy. CARDIOVASCULAR: Regular rate and rhythm without murmurs, gallops, or rubs. soft systolic murmur RESPIRATORY: Breath sounds equal bilaterally. No accessory muscle use. coarse breath sounds bilaterally on vent GASTROINTESTINAL: Abdomen soft, non-tender, nondistended. MUSCULOSKELETAL: No cyanosis, or edema. BACK: Nontender without obvious deformity. No CVA tenderness. Labs: Laboratory Results - last 12 hr 11/25/17 11/25/17 11/25/17 05:10 05:10 07:37 WBC 8.0 RBC 3.54 L Hgb 11.0 L Hct 32.4 L MCV 91.7 MCH 31.2 MCHC 34.0 RDW 13.8 Plt Count 158 MPV 10.2 Sodium 143 Potassium 5.8 H D Chloride 103 Carbon Dioxide 24.8 Anion Gap 15 BUN 113 H Creatinine 6.81 H Estimated GFR 8 L POC Glucose 148 H Random Glucose 137 H Calcium 7.3 L* Prot Corrected Calcium 7.5 L Total Bilirubin 2.1 H AST 88 H ALT 67 Alkaline Phosphatase 86 Total Protein 6.7 Albumin 3.1 L Urine Color Urine Clarity Urine pH Ur Specific [place] Urine Protein Urine Glucose (UA) Urine Ketones Urine Occult Blood Urine Nitrate Urine Bilirubin Urine Urobilinogen Ur Leukocyte Esterase Urine RBC Urine WBC Ur Squamous Epith Cells Urine Bacteria Hyaline Casts Granular Casts Micro UA Comment Urine Culture Comments 11/25/17 08:40 WBC RBC Hgb Hct MCV MCH MCHC RDW Plt Count MPV Sodium Potassium Chloride Carbon Dioxide Anion Gap BUN Creatinine Estimated GFR POC Glucose Random Glucose Calcium Prot Corrected Calcium Total Bilirubin AST ALT Alkaline Phosphatase Total Protein Albumin Urine Color Yellow Urine Clarity Cloudy H Urine pH 5.0 Ur Specific [place] 1.016 Urine Protein 30 H Urine Glucose (UA) Negative Urine Ketones Negative Urine Occult Blood Moderate H Urine Nitrate Negative Urine Bilirubin Negative Urine Urobilinogen Less than 2 Ur Leukocyte Esterase Trace H Urine RBC 41 H Urine WBC 11 H Ur Squamous Epith Cells 1 Urine Bacteria Rare H Hyaline Casts 3 Granular Casts 2 Micro UA Comment Cath-culture ind Urine Culture Comments Cath-cult indicated Result Diagrams: 11/25/17 05:10 11/25/17 10:55 - Plan (1) S/P CABG (coronary artery bypass graft) Plan: ASA, statin , diuresis (2) ST elevation myocardial infarction (STEMI) (3) CAD (coronary artery disease) (4) Hypertensive kidney disease with stage 3 chronic kidney disease Plan: monitor indices, for dialysis today nephrology following (5) Tobacco abuse Plan: smoking cessation (6) Acute respiratory failure Plan: now intubated on vent / per CCM nebs steroids sedation to maintain RASS -2 Will continue resuscitation efforts. IABP placed by myself about an hour ago in the left femoral artery. I have been in contact with the family continuously and his prognosis is not good. (2) ST elevation myocardial infarction (STEMI) Qualifiers: Qualified Code(s): I21.02 - ST elevation (STEMI) myocardial infarction involving left anterior descending coronary artery (3) CAD (coronary artery disease) Qualifiers: Qualified Code(s): I25.110 - Atherosclerotic heart disease of [place] coronary artery with unstable angina pectoris
[2017-11-25] MEDS ORDERED: Vancomycin Inj 1,750 MG in Sodium Chlor 0.9% Inj 500 ML IV.SIG ONE (11:00)
[2017-11-25 11:29] LABS: INR 1.2 Ratio; Prothrombin Time 11.7 sec (9.8-11.6)
[2017-11-25 11:38] LABS: Alanine Aminotransferase 111 U/L (12-78); Albumin 2.7 g/dL (3.4-5.0); Alkaline Phosphatase 77 U/L (45-117); Anion Gap 22 meq/L (5-15); Aspartate Aminotransferase 131 U/L (15-37); Blood Urea Nitrogen 116 mg/dL (7-18); Calcium 10.1 mg/dL (8.5-10.1); Carbon Dioxide 22.1 meq/L (21.0-32.0); Chloride 103 meq/L (98-107); Glomerular Filtration Rate 7 mL/min (>89); Glucose,Random 222 mg/dL (74-106); Potassium 4.9 meq/L (3.5-5.1); Sodium 147 meq/L (136-145); Total Protein 6.1 g/dL (6.4-8.2)
--- NOTE | 2017-11-25 11:40 | XR ---
EXAM DATE: 11/25/2017 11:36 AM EDT AGE/SEX: 57 years / Male INDICATIONS: Post code. CLINICAL DATA: This is the patient's subsequent encounter. Patient reports that signs and symptoms h ave been present for 1 week and indicates a pain score of Nonresponsive. MEDICAL/SURGICAL HISTORY: None. CABG. COMPARISON: C, CHEST 1V SINGLE AP, 11/25/2017. . FINDINGS: 2 supine portable AP views of the chest demonstrate cardiac silhouette size at the upper limits for n ormal in this patient post median sternotomy. Right IJ line tip is in the SVC. Endotracheal tube tip is at the aortic knob level measuring approximately 3.9 cm from the oralia, and nasogastric tube dist al tip is in the gastric body. EKG lines overlie the patient. There are interstitial and airspace opa cities bilaterally similar to the prior examination. No pleural effusion or pneumothorax is identifie d. CONCLUSION: Stable chest x-ray with bilateral interstitial opacities. As described previously this could represen t pulmonary edema in the appropriate clinical setting. Cardiac silhouette size remains at the upper l imits for normal. Electronically signed by: Alessandro Cohen MD 11/25/2017 11:39 AM EDT
[2017-11-25] MEDS ORDERED: Midazolam Inj 5 MG/ML 1 ML Vial ONE ×2 (11:52→16:04)
[2017-11-25 11:56] LABS: Activated Partial Thrombo Time 17.9 sec (24.3-30.1)
--- NOTE | 2017-11-25 12:01 | P.PNNP ---
Subjective Interval history: events noted, he had V fib code blue has dyspnea on Vent coded again K higher Physical Exam Vital signs: Vital Signs 11/24/17 15:00 11/24/17 15:34 11/24/17 15:40 Temperature 99.4 F Pulse Rate 78 80 Respiratory Rate 23 22 Blood Pressure 137/70 Pulse Oximetry 86 L 11/24/17 15:50 11/24/17 16:05 11/24/17 16:18 Temperature Pulse Rate Respiratory Rate Blood Pressure Pulse Oximetry 90 L 92 L 93 L 11/24/17 17:22 11/24/17 17:55 11/24/17 17:57 Temperature Pulse Rate 90 95 H Respiratory Rate 24 28 H Blood Pressure Pulse Oximetry 85 L 11/24/17 18:00 11/24/17 18:10 11/24/17 18:45 Temperature Pulse Rate Respiratory Rate Blood Pressure Pulse Oximetry 86 L 88 L 91 L 11/24/17 19:00 11/24/17 20:00 11/24/17 20:43 Temperature 97.8 F Pulse Rate 62 67 Respiratory Rate 18 20 Blood Pressure 132/70 Pulse Oximetry 92 L 95 11/24/17 22:09 11/24/17 23:00 11/25/17 00:00 Temperature 98.4 F Pulse Rate 58 L 58 L Respiratory Rate 23 Blood Pressure 105/54 L 105/54 L Pulse Oximetry 99 11/25/17 00:24 11/25/17 00:28 11/25/17 03:00 Temperature 99.4 F Pulse Rate 54 L Respiratory Rate 22 22 Blood Pressure 100/51 L Pulse Oximetry 99 98 11/25/17 03:44 11/25/17 05:34 11/25/17 07:00 Temperature 101.2 F H Pulse Rate 55 L 56 L Respiratory Rate 22 22 Blood Pressure 96/50 L Pulse Oximetry 97 97 11/25/17 07:29 11/25/17 08:00 Temperature Pulse Rate 96 H Respiratory Rate 22 Blood Pressure Pulse Oximetry 97 96 Intake & Output 11/24/17 11/25/17 11/25/17 18:59 06:59 18:59 Intake Total 1261 / 1261 760 / 760 48 / 48 Output Total 3800 / 3800 200 / 200 Balance -2539 / -2539 560 / 560 48 / 48 Weight 106 kg Intake: IV 750 / 750 640 / 640 48 / 48 Precedex Inj 200 MCG In NS Inj 50 / 50 150 / 150 48 / 48 48 ML @ 0.2 MCG/KG/HR 5.5 mls/ hr IV.CONT TITRATE PRN Rx#: [id number] Diprivan 1000 mg/100 ml Inj 1, 200 / 200 400 / 400 000 mg In 100 ml @ 5 MCG/KG/MIN 3.39 mls/hr IV.CONT TITRATE PRN Rx#:[id number] Flexbumin 25% Inj 100 ML @ 60 300 / 300 mls/hr IV.SIG WITH DIALYSIS PRN Rx#:[id number] Levophed-Dextrose 4 mg/250 ml 200 / 200 Drip 4 mg In 250 ml @ 2 MCG/MIN 7.5 mls/hr IV.SIG TITRATE PRN Rx#:[id number] fentaNYL 10 mcg/mL Premix Drip 90 / 90 2,500 mcg In 250 ml @ 50 MCG/HR 5 mls/hr IV.SIG TITRATE PRN Rx #:[id number] Tube Feeding 391 / 391 Tube Irrigant 120 / 120 120 / 120 Output: Hemodialysis Amount 3500 / 3500 Urine Amount (Catheter) 300 / 300 200 / 200 Indwelling Urethral Catheter 300 / 300 200 / 200 Other: # Bowel Movements 0 - Constitutional severe distress - Routine HEENT Exam Head: Present: normocephalic - Routine Respiratory Exam Present: patient mechanically ventilated, wheezes, crackles - Routine Cardiovascular Exam Present: tachycardia - Routine Abdominal Exam Present: soft, distended - Routine Extremities Exam Present: edema - Urinary Catheter Management Indwelling Temp Sensing Catheter Cath placed during this visit: yes, but has since been removed by the nurse Reason for continuing: Decision to DC catheter Insertion date: 11/19/17 Insertion time: 13:14 Removal date: 11/21/17 Removal time: 06:00 Indwelling Urethral Catheter Cath placed during this visit: yes Reason for continuing: Hourly intake/output Insertion date: 11/22/17 Insertion time: 08:30 Assessment and Plan - Assessment (1) Acute renal failure Code(s): N17.9 - Acute kidney failure, unspecified Status: Acute (2) CAD (coronary artery disease) Code(s): I25.10 - Atherosclerotic heart disease of [place] coronary artery without angina pectoris Status: Acute Qualifiers: Coronary Disease-Associated Artery/Lesion type: [place] artery [place] vs. transplanted heart: [place] heart Associated angina: with unstable angina Qualified Code(s): I25.110 - Atherosclerotic heart disease of [place] coronary artery with unstable angina pectoris (3) Hypertensive kidney disease with stage 3 chronic kidney disease Code(s): I12.9 - Hypertensive chronic kidney disease with stage 1 through stage 4 chronic kidney disease, or unspecified chronic kidney disease; N18.3 - Chronic kidney disease, stage 3 (moderate) Status: Chronic (4) S/P CABG (coronary artery bypass graft) Code(s): Z95.1 - Presence of aortocoronary bypass graft Status: Acute - Plan Patient started on hemodialysis 11/22. 3.5 L Saturday, 2.5L UF Saturday. Further UF limited by tachycardia yesterday. Discussed with critical care - will do further HD today to assist with extubation. Will repeat HD tomorrow with UF as tolerated. Received 3.5L of fluids yesterday today worse V fib coded several times HD slow mode attempt HD to be attempted may do slow dialysis Avoid nephrotoxic Agents Avoid contrast studies follow labs 1410 pm seen him during dialysis QB 250, doing poorly 1750 pm seen again V fib recurrent IABP in place multiple and on going shocks q 2 minutes as in V fib which is recurrent d/w critical care, cardiology, CV surgery wait further intervention per Cardiology once stable to start CRRT
--- NOTE | 2017-11-25 12:29 | P.PCN ---
Date of procedure: 11/25/17 Procedure: CPR Responded to CODE BLUE. On my arrival CPR was in progress, and patient was undergoing bag ventilation through existing ET tube. Per nurse present at bedside, while patient was undergoing echocardiogram he suddenly went into VT/VF. ACLS protocol was initiated, patient was defibrillated multiple times, he was given amiodarone 300 followed by 150 mg 2, lidocaine 100 and then 50 and he was started on both amiodarone and lidocaine drips due to refractory VT/VF. In addition he was given multiple doses of epinephrine, calcium and bicarb for hyperkalemia and magnesium 2 g push for one episode of torsade during the code. Please see code sheet documentation for exact doses. ABG during code showed a pH of 7.26, potassium of 5.6, Calcium of 1.4, glucose of 200, lactic acid of 6.3. Patient was resuscitated for approximately 36 minutes with successful return of spontaneous circulation. At the end of the code, patient was following commands. Family was notified and they were present at bedside during the code. Patient had another 2 episodes of VT arrest after return of spontaneous circulation was achieved requiring additional defibrillation, amiodarone and epinephrine and continuation of Amio and lidocaine drips. After ROS he was achieved patient is following commands. Stat chest x-ray and stat labs were sent. EKG done postcode showed persistent ST elevation in the anterolateral leads improved compared to the previous EKGs. Dr. Rojas was present at bedside throughout the codes and case was discussed in detail with him. EP was consulted. Dr. Frey from nephrology was also present at bedside, no patient being started on CVVH. Present at bedside for another CODE BLUE. Patient with VT arrest, requiring epinephrine and defibrillation. Additional dose of like the cane given by Dr. Pérez - DONELL. Return of spontaneous circulation achieved after 1 round of CPR. Patient is arousable and following some simple commands. Not a candidate for hypothermia protocol due to above. Family was present at bedside and updated throughout.
[2017-11-25] MEDS ORDERED: Sodium Bicarbonate 8.4% Inj 50 MEQ/50 ML Syringe IV.PUSH ONE (12:38)
[2017-11-25] MEDS ORDERED: Sodium Bicarbonate 8.4% Inj 150 MEQ in Dextrose 5% in Water Inj 850 ML IV.CONT SCH ×2 (13:00)
--- NOTE | 2017-11-25 14:40 | P.PNCA ---
Subjective Interval history: Intubated. Sedated. Events of today noted, reviewed. Physical Exam Vital signs: Vital Signs 11/24/17 15:00 11/24/17 15:34 11/24/17 15:40 Temperature 99.4 F Pulse Rate 78 80 Respiratory Rate 23 22 Blood Pressure 137/70 Pulse Oximetry 86 L 11/24/17 15:50 11/24/17 16:05 11/24/17 16:18 Temperature Pulse Rate Respiratory Rate Blood Pressure Pulse Oximetry 90 L 92 L 93 L 11/24/17 17:22 11/24/17 17:55 11/24/17 17:57 Temperature Pulse Rate 90 95 H Respiratory Rate 24 28 H Blood Pressure Pulse Oximetry 85 L 11/24/17 18:00 11/24/17 18:10 11/24/17 18:45 Temperature Pulse Rate Respiratory Rate Blood Pressure Pulse Oximetry 86 L 88 L 91 L 11/24/17 19:00 11/24/17 20:00 11/24/17 20:43 Temperature 97.8 F Pulse Rate 62 67 Respiratory Rate 18 20 Blood Pressure 132/70 Pulse Oximetry 92 L 95 11/24/17 22:09 11/24/17 23:00 11/25/17 00:00 Temperature 98.4 F Pulse Rate 58 L 58 L Respiratory Rate 23 Blood Pressure 105/54 L 105/54 L Pulse Oximetry 99 11/25/17 00:24 11/25/17 00:28 11/25/17 03:00 Temperature 99.4 F Pulse Rate 54 L Respiratory Rate 22 22 Blood Pressure 100/51 L Pulse Oximetry 99 98 11/25/17 03:44 11/25/17 05:34 11/25/17 07:00 Temperature 101.2 F H Pulse Rate 55 L 56 L Respiratory Rate 22 22 Blood Pressure 96/50 L Pulse Oximetry 97 97 11/25/17 07:29 11/25/17 08:00 11/25/17 11:00 Temperature Pulse Rate 96 H 86 Respiratory Rate 22 Blood Pressure Pulse Oximetry 97 96 11/25/17 11:30 11/25/17 12:00 Temperature Pulse Rate Respiratory Rate 29 H Blood Pressure Pulse Oximetry 82 L 90 L Intake & Output 11/24/17 11/25/17 11/25/17 18:59 06:59 18:59 Intake Total 1261 / 1261 760 / 760 48 / 48 Output Total 3800 / 3800 200 / 200 Balance -2539 / -2539 560 / 560 48 / 48 Weight 106 kg Intake: IV 750 / 750 640 / 640 48 / 48 Precedex Inj 200 MCG In NS Inj 50 / 50 150 / 150 48 / 48 48 ML @ 0.2 MCG/KG/HR 5.5 mls/ hr IV.CONT TITRATE PRN Rx#: [id number] Diprivan 1000 mg/100 ml Inj 1, 200 / 200 400 / 400 000 mg In 100 ml @ 5 MCG/KG/MIN 3.39 mls/hr IV.CONT TITRATE PRN Rx#:[id number] Flexbumin 25% Inj 100 ML @ 60 300 / 300 mls/hr IV.SIG WITH DIALYSIS PRN Rx#:[id number] Levophed-Dextrose 4 mg/250 ml 200 / 200 Drip 4 mg In 250 ml @ 2 MCG/MIN 7.5 mls/hr IV.SIG TITRATE PRN Rx#:[id number] fentaNYL 10 mcg/mL Premix Drip 90 / 90 2,500 mcg In 250 ml @ 50 MCG/HR 5 mls/hr IV.SIG TITRATE PRN Rx #:[id number] Tube Feeding 391 / 391 Tube Irrigant 120 / 120 120 / 120 Output: Hemodialysis Amount 3500 / 3500 Urine Amount (Catheter) 300 / 300 200 / 200 Indwelling Urethral Catheter 300 / 300 200 / 200 Other: # Bowel Movements 0 - Urinary Catheter Management Indwelling Temp Sensing Catheter Cath placed during this visit: yes, but has since been removed by the nurse Reason for continuing: Decision to DC catheter Insertion date: 11/19/17 Insertion time: 13:14 Removal date: 11/21/17 Removal time: 06:00 Indwelling Urethral Catheter Cath placed during this visit: yes Reason for continuing: Hourly intake/output Insertion date: 11/22/17 Insertion time: 08:30 Assessment and Plan - Assessment (1) Ventricular fibrillation Code(s): I49.01 - Ventricular fibrillation Status: Acute Plan: Multiple VF arrests through the day today. EKG shows no definite acute ST/T changes. ST elevation seen on admission improved. No disease seen on initial cath which would be amenable to PCI. If problem is graft failure he is not good candidate for re-operation at this time. Electrolytes not markedly abnormal. Continue IV Amiodarone, lidocaine. (2) CAD (coronary artery disease) Code(s): I25.10 - Atherosclerotic heart disease of [place] coronary artery without angina pectoris Status: Acute Plan: Status post anterior STEMI with unsuccessful PCI on occluded proximal LAD, s/p CABG. Multiple VF arrests through the day today. EKG shows no definite acute ST/T changes. ST elevation seen on admission improved. No disease seen on initial cath which would be amenable to PCI. If problem is graft failure he is not good candidate for re-operation at this time. Rec continued treatment of the ventricular tachyarrhythmias, continue IABP support. (3) Ischemic cardiomyopathy Code(s): I25.5 - Ischemic cardiomyopathy Status: Acute Plan: EF apparently around 25% by echo this morning though after code. Continue supportive care. - Plan Code Status: full code Discussed Condition With: family (2) CAD (coronary artery disease) Qualifiers: Coronary Disease-Associated Artery/Lesion type: [place] artery [place] vs. transplanted heart: [place] heart Associated angina: with unstable angina Qualified Code(s): I25.110 - Atherosclerotic heart disease of [place] coronary artery with unstable angina pectoris
[2017-11-25] MEDS ORDERED: SODIUM CHLOR 0.9% IV.SIG ONE ×5 (16:00)
[2017-11-25] MEDS ORDERED: CALCIUM CHLORIDE IV.SIG ONE ×5 (16:00)
--- NOTE | 2017-11-25 16:03 | ECHRPT ---
Indication: STEMI CONCLUSIONS The left ventricular systolic function is severely reduced with an estimated ejection fraction in th e range of 20-25%. Distal anteroseptal and apical severe hypokinesis. Mildly dilated left ventricle. Trace mitral valve regurgitation. BP: / HR: Rhythm: Other MEASUREMENTS (Male / Female) Normal Values Technical Quality:Fair 2D ECHO LVOT Diameter 1.9 cm LV Ejection Fraction MOD 4C 29.1 % LV Ejection Fraction 4C AL 31.7 % M-MODE LV Diastolic Diameter MM 6.3 cm 4.2 - 5.9 / 3.9 - 5.3 cm LV Systolic Diameter MM 5.8 cm LV Ejection Fraction MM Teich 19.0 % IVS Diastolic Thickness MM 1.3 cm 0.6 - 1.0 / 0.6 - 0.9 cm LVPW Diastolic Thickness MM 1.3 cm 0.6 - 1.0 / 0.6 - 0.9 cm LV Relative Wall Thickness MM 0.4 0.24 - 0.42 / 0.22 - 0.42 Aortic Root Diameter MM 2.1 cm LA Systolic Diameter MM 3.3 cm LA Ao Ratio MM 1.6 DOPPLER AV Peak Velocity 137.0 cm/s AV Peak Gradient 7.5 mmHg LVOT Peak Velocity 109.0 cm/s LVOT Peak Gradient 4.8 mmHg AV Area Cont Eq pk 2.3 cm MV Area PHT 4.0 cm Mitral E Point Velocity 124.0 cm/s Mitral A Point Velocity 31.6 cm/s Mitral E to A Ratio 3.9 LV E' Lateral Velocity 4.0 cm/s Mitral E to LV E' Lateral Ratio 31.0 LV E' Septal Velocity 5.5 cm/s Mitral E to LV E' Septal Ratio 22.7 FINDINGS LEFT VENTRICLE The left ventricular systolic function is severely reduced with an estimated ejection fraction in th e range of 20-25%. Distal anteroseptal and apical severe hypokinesis. Mildly dilated left ventricle. There is global left ventricular dysfunction. MITRAL VALVE Structurally normal mitral valve. Trace mitral valve regurgitation. Kameron Loera MD, FACC (Electronically Signed) Final Date:25 November 2017 16:00
[2017-11-25] MEDS ORDERED: fentaNYL Citrate Inj 100 MCG/2 ML Ampul ONE (16:06)
--- NOTE | 2017-11-25 16:27 | P.CONPAL ---
Consult Service: Palliative Care Requesting Physician: Tito Esteban Reason for Consult: a. To assist with evaluation and management of symptoms including: Chest pain, dyspnea b. To assist medical decision maker(s) with: better understanding of current medical conditions; weighing benefits/burdens of medical treatment options; making medical treatment decisions. Primary Care Provider: Odilon Hernandez MD History of Present Illness History of Present Illness: This is a 57-year-old male who was admitted to [facility] under a STEMI alert on 11/19/2017 and was emergently catheterized by Dr. Kahn. Catheterization findings showed proximal LAD ulcerated, up to 80% disease and totally occluded after takeoff of the first septal air surveillance operator. The diagonal off the LAD showed diffuse 70% disease in its midportion. The left circumflex was a medium sized vessel with a tiny first obtuse marginal and a medium sized branching second obtuse marginal which was totally occluded in its midportion with faint filling of the distal branches. RCA was a large dominant vessel, diffusely diseased up to 10% severity with possible total occlusion of the very distal RCA. Only scant collaterals to the LAD were seen. Ejection fraction was roughly estimated at 35-40%. Percutaneous intervention was unsuccessful due to the total occlusion. Small to moderate sized area of apical akinesis was noted. Patient was referred for emergent coronary artery bypass grafting. Coronary artery bypass grafting was performed by Dr. Rojas on 11/19 with GO to LAD with fair results, SVG to OM and SVG to D1 with poor results, due to small vessel providing poor targets. He was extubated post surgery but on 11/20 he was noted to have hypoxia with dyspnea and required partial nonrebreather facemask. Gentle diuresis was initiated however his respiratory status continued to worsen and he was placed on BiPAP with DuoNeb's and IV steroid support. He subsequently developed oliguria with 300 mL of urine output over 12 hours and worsening renal indices with BUN 75, creatinine 4.1. Chest x-ray showed severe pulmonary edema and he was subsequently intubated and hemodialysis initiated. In spite of hemodialysis, his renal indices continued to worsen. Again on 11/24 he was extubated to Ventimask but continued to desaturate off of positive pressure. High flow nasal cannula and BiPAP were again attempted as the patient denied discomfort and wanted to avoid reintubation however he required reintubation approximately 3 hours post extubation. At this evaluation he remains intubated having multiple recurrent episodes of VT/VF cardiac arrest requiring CPR, current count of V. fib arrests today at 11 per the RN. He required emergent hemodialysis today secondary to potassium of 5.8, which decreased to 4.9 postdialysis. Liver enzymes continued to worsen with increase in AST and ALT. Lactic acid is 9.5. At this evaluation intra-aortic balloon pump is being placed for cardiac support. He has been evaluated by cardiology and cardiovascular surgery several times today who opine that the ST elevation seen on admission has improved and no disease was seen on the initial catheterization which would be amenable to PCI. If the problem were found to be graft failure he is not a good candidate for reoperation at this time. Recommend continuing IV amiodarone and lidocaine. They also note that the EF by echocardiogram after this morning's code was 25%. Clinical data * Labs on presentation showed WBC 15.9, hemoglobin 16.3, hematocrit 48.1, platelets 184, sodium 139, potassium 4.7, BUN 29, creatinine 1.80, GFR 39, random glucose 129, total creatinine kinase 1461, CK-MB percent 6.5, troponin greater than 40, B natruretic peptide 468. * EKG on admission showed possible left atrial enlargement, anterolateral myocardial infarction, acute DC. He has a past medical history of heavy tobacco abuse of 2-3 packs per day for most of his life, long history of autobody painting and repair, as well as BPH, hypertensive stage III chronic kidney disease and longtime chronic use of anabolic steroids. The family reports that he had spent the prior 1-2 weeks in [place], visiting his family and had complained of chest pain at the time, however refused evaluation. He subsequently flew back to [place], continued to have chest pain and eventually drove himself to the hospital for evaluation on . Past medical history Hypertension Prostatic hypertrophy Chronic heavy tobacco use Regular anabolic steroid use Past surgical history Recent prostate biopsy, reportedly negative Social history Smokes 2-3 packs per day since age 14 Long-time use of anabolic steroids for muscle mass increase No alcohol use. Family history Father at age 69 from septic complications secondary to pancreatitis with long-term chronic smoking history. Mother is alive and well in her 80s. History of diabetes in his grandmother. . Function/Cognitive Trajectory: His son states that he had been complaining of not feeling well for the last few weeks. He had recently been worked up for an enlarged prostate due to urinary retention, frequent urination, but the son reports that the biopsy was negative for cancer and he was told it was likely due to his chronic use of anabolic steroids, which has also impacted his renal function. . Review of Systems Patient is nonverbal and unable to provide their own ROS. 10 part ROS taken as best as possible from medical record and available family. Cardiovascular: Reports chest pain Respiratory: Reports shortness of breath Genitourinary: Reports urinary frequency, Reports urinary hesitancy PMFSH - History History Provided By: Patient, Family Member - Medical History Medical History: Medical History (Last Updated 11/25/17 @ 15:49 by CONCEPCIÓN Ortiz) Enlarged prostate Frequent urination Hypertension - Surgical History Surgical History: Surgical History (Last Updated 11/25/17 @ 15:50 by CONCEPCIÓN Ortiz) H/O prostate biopsy - Family History Family History: Family History (Last Updated 11/25/17 @ 15:50 by CONCEPCIÓN Ortzi) Father Pancreatitis - Tobacco History Tobacco Use In Past 30 Days: Yes Smoking Status: Heavy tobacco smoker Tobacco Type: Cigarettes Packs Per Day: 2.5 (2-3 PPD) Years Smoked: 43 - Alcohol History How Often Do You Have a Drink Containing Alcohol: Never - Substance Use History Substance History: No History of Abuse - Substance Use Type Other Type: Anabolic steroids Route Used: By Mouth - Travel History Recent Travel in the [place] Within the Last 8 Weeks: No Recent Travel Out of the Country Within the Last 8 Weeks: No - Immunization History Tetanus Immunization: Unable to Assess Hx Influenza Vaccine This Season: Unable to Assess Medications and Allergies Active Medications: Active Medications Acetaminophen (Tylenol) 650 mg PO UNSCH PRN PRN Reason: SEE LABEL COMMENTS Albuterol (Duoneb Neb (Prn)) 1 ampul NEB Q2HR NEB PRN PRN Reason: WHEEZING Last Admin: 11/25/17 07:28 Dose: 1 ampul Alprazolam (Xanax) 0.5 mg PO Q8H PRN PRN Reason: anxiety Last Admin: 11/21/17 07:46 Dose: 0.5 mg Aspirin (Aspirin Chew) 81 mg PO DAILY KATHIA Last Admin: 11/25/17 09:05 Dose: 81 mg Atorvastatin Calcium (Lipitor) 80 mg PO HS [facility] Last Admin: 11/25/17 00:17 Dose: 80 mg Bisacodyl (Dulcolax Supp) 10 mg RECTAL PRN PRN PRN Reason: SEE LABEL COMMENTS Budesonide (Pulmicort Respule Neb) 0.25 mg NEB Q12HR NEB [facility] Last Admin: 11/25/17 07:28 Dose: 0.25 mg Bumetanide (Bumex Inj) 1 mg IV.PUSH Q8H [facility] Last Admin: 11/25/17 09:06 Dose: 1 mg Chlorhexidine Gluconate (Peridex 0.12% Oral Kit) 15 ml OROPHARYNG UNSCH PRN PRN Reason: PER PROTOCOL Last Admin: 11/24/17 22:51 Dose: 15 ml Clonidine HCl (Catapres) 0.1 mg PO UNSCH PRN PRN Reason: SEE LABEL COMMENTS Dextrose (D50w Vial) 50 ml IV.PUSH UNSCH PRN PRN Reason: PER HYPOGLYCEMIA PROTOCOL Diphenhydramine HCl (Benadryl) 25 mg PO UNSCH PRN PRN Reason: SEE LABEL COMMENTS Docusate Sodium (Colace) 100 mg PO BID [facility] Last Admin: 11/25/17 09:05 Dose: Not Given Epoetin Herbert (Epogen Inj) 4,000 unit IV.PUSH UNSCH PRN PRN Reason: SEE LABEL COMMENTS Last Admin: 11/23/17 10:36 Dose: 4,000 unit Gelatin (Gelfoam 12 Mm/7 Mm Topical) 1 foam TOPICAL PRN PRN PRN Reason: help stop bleeding from site Gentamicin Sulfate (Gentamicin Inj) 20 mg OTHER WITH DIALYSIS PRN PRN Reason: Dwell Gentamycin Lock Last Admin: 11/24/17 13:16 Dose: 20 mg Glucagon (Glucagon Inj) 1 mg OTHER PRN PRN PRN Reason: For hypoglycemia Heparin Sodium (Porcine) (Heparin Inj) 8,000 units OTHER WITH DIALYSIS PRN PRN Reason: for machine prime Last Admin: 11/24/17 13:15 Dose: 2,300 units Heparin Sodium (Porcine) (Heparin Inj) 1,000 units OTHER WITH DIALYSIS PRN PRN Reason: Dwell Heparin to Fill Catheter Last Admin: 11/23/17 10:36 Dose: 1,000 units Fentanyl (Fentanyl 10 Mcg/Ml Premix Drip) 2,500 mcg in 250 mls @ 5 mls/hr IV.SIG TITRATE PRN; Protocol PRN Reason: Per Protocol Last Titration: 11/25/17 06:00 Dose: 100 mcg/hr, 10 mls/hr Sodium Chloride (Ns Inj) 1,000 mls @ 0 mls/hr OTHER .Q0M PRN PRN Reason: for prime and rinse back Sodium Chloride (Ns Inj) 1,000 mls @ 200 mls/hr OTHER .Q5H PRN PRN Reason: for dialyzer flush PRN Sodium Chloride (Ns Inj) 1,000 mls @ 0 mls/hr IV.CONT .Q0M PRN PRN Reason: hypotension / volume replace Dexmedetomidine HCl 200 mcg/ (Sodium Chloride) 50 mls @ 5.5 mls/hr IV.CONT TITRATE PRN; Protocol PRN Reason: Per Protocol Last Admin: 11/25/17 09:46 Dose: 0.5 mcg/kg/hr, 13.75 mls/hr Cefepime HCl 2,000 mg/ Sodium (Chloride) 100 mls @ 200 mls/hr IV.SIG Q48H PRN PRN Reason: with dialysis Dobutamine HCl/Dextrose (Dobutamine 250 Mg/250 Ml Premx) 250 mg in 250 mls @ 15.9 mls/hr IV.CONT .[id number] [facility] Last Admin: 11/25/17 10:11 Dose: 2.5 mcg/kg/min, 15.9 mls/hr Amiodarone HCl 450 mg/ (Dextrose) 250 mls @ 33.33 mls/hr IV.CONT TITRATE PRN; Protocol PRN Reason: Per Protocol Sodium Bicarbonate 150 meq/ (Dextrose) 1,000 mls @ 100 mls/hr IV.CONT .Q10H [facility] Last Admin: 11/25/17 13:09 Dose: 100 mls/hr Insulin Aspart (Novolog Insulin Correctional Sugar Inj) 1 unit SQ ACHS KATHIA; Protocol Last Admin: 11/25/17 08:45 Dose: 1 unit Mannitol (Mannitol Inj) 12.5 gm IV.PUSH UNSCH PRN PRN Reason: hypotension / volume replace Last Admin: 11/24/17 10:41 Dose: 12.5 gm Methylprednisolone Sodium Succinate (Solumedrol Inj) 40 mg IV.PUSH Q8H [facility] Last Admin: 11/25/17 09:05 Dose: 40 mg Miscellaneous (Pill Splitter) 1 each OTHER UNSCH [facility] Multivitamins/Minerals (Theragran-M) 1 tab PO DAILY [facility] Last Admin: 11/25/17 09:04 Dose: 1 tab Nitroglycerin (Nitrostat Sl) 0.4 mg SL Q5M PRN PRN Reason: CHEST PAIN Ondansetron HCl (Zofran Inj) 4 mg IV.PUSH Q6H PRN PRN Reason: NAUSEA OR VOMITING Ondansetron HCl (Zofran Inj) 4 mg IV.PUSH UNSCH PRN PRN Reason: NAUSEA OR VOMITING Pantoprazole Sodium (Protonix) 40 mg PO DAILY@06 [facility] Last Admin: 11/25/17 05:28 Dose: 40 mg Pharmacy Profile Note (Vancomycin Consult Pharmacy) 1 each OTHER ONCE [facility] Polyethylene Glycol (Miralax) 17 gm PO DAILY [facility] Last Admin: 11/25/17 09:05 Dose: 17 gm Sennosides (Senokot) 8.6 mg PO HS [facility] Last Admin: 11/25/17 00:17 Dose: 8.6 mg Sodium Biphosphate/Sodium Phosphate (Fleets Enema (Adult)) 118 ml RECTAL UNSCH PRN PRN Reason: SEE LABEL COMMENTS Sodium Chloride (Ns Flush) 2 ml IV.FLUSH PRN PRN PRN Reason: FLUSH AFTER USING IV ACCESS Last Admin: 11/23/17 21:40 Dose: 2 ml Sodium Chloride (Ns Flush) 5 ml IV.FLUSH PRN PRN PRN Reason: flush each lumen during HD Terbutaline Sulfate (Brethine Inj) 1 mg SQ UNSCH PRN PRN Reason: For Extravasation Allergies Allergy/AdvReac Type Severity Reaction Status Date / Time No Known Allergies Allergy Uncoded 01/23/12 16:21 Home Medications Medication Instructions Recorded Confirmed Type Unable to Obtain Home Meds 11/19/17 11/19/17 History Advance Directives Living Will: No Healthcare Surrogate: No Power of Rn Internal Medicine: No Documented care wishes: None known. . Today's verbally stated goals: Patient intubated, currently in CODE BLUE status, unable to provide. Family/friends goals: Aggressive. . Ethical and Legal Issues: None noted. . Physical Exam Vital Signs: Vital Signs - 24 hr 11/24/17 15:34 11/24/17 15:40 11/24/17 15:50 Temperature Pulse Rate 80 Respiratory Rate 22 Blood Pressure Pulse Oximetry 86 L 90 L 11/24/17 16:05 11/24/17 16:18 11/24/17 17:22 Temperature Pulse Rate 90 Respiratory Rate 24 Blood Pressure Pulse Oximetry 92 L 93 L 11/24/17 17:55 11/24/17 17:57 11/24/17 18:00 Temperature Pulse Rate 95 H Respiratory Rate 28 H Blood Pressure Pulse Oximetry 85 L 86 L 11/24/17 18:10 11/24/17 18:45 11/24/17 19:00 Temperature 97.8 F Pulse Rate 62 Respiratory Rate 18 Blood Pressure 132/70 Pulse Oximetry 88 L 91 L 11/24/17 20:00 11/24/17 20:43 11/24/17 22:09 Temperature Pulse Rate 67 Respiratory Rate 20 Blood Pressure Pulse Oximetry 92 L 95 99 11/24/17 23:00 11/25/17 00:00 11/25/17 00:24 Temperature 98.4 F Pulse Rate 58 L 58 L Respiratory Rate 23 22 Blood Pressure 105/54 L 105/54 L Pulse Oximetry 99 11/25/17 00:28 11/25/17 03:00 11/25/17 03:44 Temperature 99.4 F Pulse Rate 54 L 55 L Respiratory Rate 22 22 Blood Pressure 100/51 L Pulse Oximetry 98 97 11/25/17 05:34 11/25/17 07:00 11/25/17 07:29 Temperature 101.2 F H Pulse Rate 56 L 96 H Respiratory Rate 22 22 Blood Pressure 96/50 L Pulse Oximetry 97 97 11/25/17 08:00 11/25/17 11:00 11/25/17 11:30 Temperature Pulse Rate 86 Respiratory Rate Blood Pressure Pulse Oximetry 96 82 L 11/25/17 12:00 Temperature Pulse Rate Respiratory Rate 29 H Blood Pressure Pulse Oximetry 90 L I&O: Intake & Output 11/23/17 11/24/17 11/25/17 11/26/17 06:59 06:59 06:59 06:59 Intake Total 600 / 600 2884 / 2884 2020 48 / 48 Output Total 4500 / 4500 3035 / 3035 4000 / 4000 Balance -3900 / -3900 -151 / -151 -1978 48 / 48 Weight 242 lb 8.136 oz 242 lb 8.136 oz 233 lb 11.04 oz Physical Exam: CONSTITUTIONAL/GENERAL: This is an adequately nourished patient, intubated, sedated, recently underwent CPR. TUBES/LINES/DRAINS: ETT, Boland, left subclavian, right IJ Vas-Cath, IABP left groin, right radial arterial line SKIN: Sternotomy site with negative pressure dressing.. Ecchymoses on upper extremities. No wounds seen anteriorly. Skin temperature appropriate. Not diaphoretic. HEAD: Atraumatic. Normocephalic. EYES: Pupils equal and round and reactive. No scleral icterus. No injection or drainage. Fundi not examined. ENT: Hearing grossly normal. Nose without bleeding or purulent drainage. NECK: Trachea midline. Supple, nontender. No palpable thyroid enlargement or nodularity. CARDIOVASCULAR: Regular rate and rhythm without murmurs, gallops, or rubs. Peripheral pulses symmetric. RESPIRATORY/CHEST: Mechanically ventilated, coarse breath sounds, diminished. GASTROINTESTINAL: Abdomen soft, nondistended. No hepato-splenomegaly, or palpable masses. GENITOURINARY: Without palpable bladder distension. Boland catheter in place. MUSCULOSKELETAL: Extremities without clubbing, cyanosis, trace edema. No joint tenderness or effusion noted. No calf tenderness. No mottling or clubbing. LYMPHATICS: No palpable cervical or supraclavicular adenopathy. NEUROLOGICAL: Intubated, sedated, grimaces to pain. After CODE BLUE arrest, patient was able to give bilateral thumbs up sign to son. PSYCHIATRIC: Sedated. . Diagnostic Tests Laboratory: Laboratory Results - last 72 hr 11/22/17 11/22/17 11/23/17 16:43 20:08 04:38 WBC 9.4 RBC 3.42 L Hgb 10.7 L Hct 31.2 L MCV 91.0 MCH 31.3 MCHC 34.3 RDW 14.0 Plt Count 156 D MPV 9.8 Neut % (Auto) Lymph % (Auto) Sawyer % (Auto) Eos % (Auto) Baso % (Auto) Neut # (Auto) Lymph # (Auto) Sawyer # (Auto) Eos # (Auto) Baso # (Auto) WBC Differential Differential Comment PT INR APTT Puncture Site Patient Temperature O2 Saturation ABG pH ABG pCO2 ABG pO2 ABG HCO3 ABG O2 Content ABG Base Excess ABG Methemoglobin Hemoglobin Carboxyhemoglobin O2 Delivery Device Vent Setting Inspired O2 Critical Value Sodium Potassium Chloride Carbon Dioxide Anion Gap BUN Creatinine Estimated GFR POC Glucose 161 H 146 H Random Glucose Lactic Acid Calcium Prot Corrected Calcium Phosphorus Magnesium Total Bilirubin AST ALT Alkaline Phosphatase Total Protein Albumin Urine Color Urine Clarity Urine pH Ur Specific [place] Urine Protein Urine Glucose (UA) Urine Ketones Urine Occult Blood Urine Nitrate Urine Bilirubin Urine Urobilinogen Ur Leukocyte Esterase Urine RBC Urine WBC Ur Squamous Epith Cells Urine Bacteria Hyaline Casts Granular Casts Micro UA Comment Urine Culture Comments Hepatitis A IgM Ab Hep Bs Antigen Hep B Core IgM Ab Hep C IgG Ab 11/23/17 11/23/17 11/23/17 04:38 07:12 09:15 WBC RBC Hgb Hct MCV MCH MCHC RDW Plt Count MPV Neut % (Auto) Lymph % (Auto) Sawyer % (Auto) Eos % (Auto) Baso % (Auto) Neut # (Auto) Lymph # (Auto) Sawyer # (Auto) Eos # (Auto) Baso # (Auto) WBC Differential Differential Comment PT INR APTT Puncture Site Patient Temperature O2 Saturation ABG pH ABG pCO2 ABG pO2 ABG HCO3 ABG O2 Content ABG Base Excess ABG Methemoglobin Hemoglobin Carboxyhemoglobin O2 Delivery Device Vent Setting Inspired O2 Critical Value Sodium 142 Potassium 4.2 Chloride 103 Carbon Dioxide 25.0 Anion Gap 14 BUN 98 H Creatinine 5.67 H Estimated GFR 10 L POC Glucose 182 H Random Glucose 179 H Lactic Acid Calcium 7.4 L* Prot Corrected Calcium 7.7 L Phosphorus Magnesium 3.6 H Total Bilirubin AST ALT Alkaline Phosphatase Total Protein 6.5 Albumin Urine Color Urine Clarity Urine pH Ur Specific [place] Urine Protein Urine Glucose (UA) Urine Ketones Urine Occult Blood Urine Nitrate Urine Bilirubin Urine Urobilinogen Ur Leukocyte Esterase Urine RBC Urine WBC Ur Squamous Epith Cells Urine Bacteria Hyaline Casts Granular Casts Micro UA Comment Urine Culture Comments Hepatitis A IgM Ab Nonreactive Hep Bs Antigen Nonreactive Hep B Core IgM Ab Nonreactive Hep C IgG Ab Nonreactive 11/23/17 11/23/17 11/23/17 09:15 10:25 11:52 WBC 12.0 H RBC 3.71 L Hgb 11.3 L Hct 33.6 L MCV 90.7 MCH 30.4 MCHC 33.5 RDW 14.3 Plt Count 176 MPV 9.6 Neut % (Auto) 85.7 H Lymph % (Auto) 1.6 L Sawyer % (Auto) 12.7 H Eos % (Auto) 0.0 Baso % (Auto) 0.0 Neut # (Auto) 10.3 H Lymph # (Auto) 0.2 L Sawyer # (Auto) 1.5 H Eos # (Auto) 0.0 Baso # (Auto) 0.0 WBC Differential . Differential Comment Auto diff final PT INR APTT Puncture Site Patient Temperature O2 Saturation ABG pH ABG pCO2 ABG pO2 ABG HCO3 ABG O2 Content ABG Base Excess ABG Methemoglobin Hemoglobin Carboxyhemoglobin O2 Delivery Device Vent Setting Inspired O2 Critical Value Sodium 145 Potassium 4.0 Chloride 104 Carbon Dioxide 27.5 Anion Gap 14 BUN 99 H Creatinine 5.40 H Estimated GFR 11 L POC Glucose 140 H Random Glucose 159 H Lactic Acid Calcium 7.3 L* Prot Corrected Calcium 7.9 L Phosphorus 6.6 H Magnesium Total Bilirubin 3.7 H AST 136 H ALT 55 Alkaline Phosphatase 74 Total Protein 5.9 L D Albumin 2.9 L Urine Color Urine Clarity Urine pH Ur Specific [place] Urine Protein Urine Glucose (UA) Urine Ketones Urine Occult Blood Urine Nitrate Urine Bilirubin Urine Urobilinogen Ur Leukocyte Esterase Urine RBC Urine WBC Ur Squamous Epith Cells Urine Bacteria Hyaline Casts Granular Casts Micro UA Comment Urine Culture Comments Hepatitis A IgM Ab Hep Bs Antigen Hep B Core IgM Ab Hep C IgG Ab 11/23/17 11/23/17 11/24/17 16:48 21:29 05:22 WBC 9.0 RBC 3.32 L Hgb 10.4 L Hct 30.4 L MCV 91.4 MCH 31.4 MCHC 34.4 RDW 14.0 Plt Count 151 MPV 10.0 Neut % (Auto) Lymph % (Auto) Sawyer % (Auto) Eos % (Auto) Baso % (Auto) Neut # (Auto) Lymph # (Auto) Sawyer # (Auto) Eos # (Auto) Baso # (Auto) WBC Differential Differential Comment PT INR APTT Puncture Site Patient Temperature O2 Saturation ABG pH ABG pCO2 ABG pO2 ABG HCO3 ABG O2 Content ABG Base Excess ABG Methemoglobin Hemoglobin Carboxyhemoglobin O2 Delivery Device Vent Setting Inspired O2 Critical Value Sodium Potassium Chloride Carbon Dioxide Anion Gap BUN Creatinine Estimated GFR POC Glucose 191 H 173 H Random Glucose Lactic Acid Calcium Prot Corrected Calcium Phosphorus Magnesium Total Bilirubin AST ALT Alkaline Phosphatase Total Protein Albumin Urine Color Urine Clarity Urine pH Ur Specific [place] Urine Protein Urine Glucose (UA) Urine Ketones Urine Occult Blood Urine Nitrate Urine Bilirubin Urine Urobilinogen Ur Leukocyte Esterase Urine RBC Urine WBC Ur Squamous Epith Cells Urine Bacteria Hyaline Casts Granular Casts Micro UA Comment Urine Culture Comments Hepatitis A IgM Ab Hep Bs Antigen Hep B Core IgM Ab Hep C IgG Ab 11/24/17 11/24/17 11/24/17 05:22 07:30 13:07 WBC RBC Hgb Hct MCV MCH MCHC RDW Plt Count MPV Neut % (Auto) Lymph % (Auto) Sawyer % (Auto) Eos % (Auto) Baso % (Auto) Neut # (Auto) Lymph # (Auto) Sawyer # (Auto) Eos # (Auto) Baso # (Auto) WBC Differential Differential Comment PT INR APTT Puncture Site Patient Temperature O2 Saturation ABG pH ABG pCO2 ABG pO2 ABG HCO3 ABG O2 Content ABG Base Excess ABG Methemoglobin Hemoglobin Carboxyhemoglobin O2 Delivery Device Vent Setting Inspired O2 Critical Value Sodium 141 Potassium 4.7 Chloride 103 Carbon Dioxide 24.2 Anion Gap 14 BUN 108 H Creatinine 6.61 H Estimated GFR 9 L POC Glucose 202 H 145 H Random Glucose 200 H Lactic Acid Calcium 6.8 L* Prot Corrected Calcium 7.1 L* D Phosphorus Magnesium Total Bilirubin 2.8 H AST 115 H ALT 59 Alkaline Phosphatase 79 Total Protein 6.5 D Albumin 2.7 L Urine Color Urine Clarity Urine pH Ur Specific [place] Urine Protein Urine Glucose (UA) Urine Ketones Urine Occult Blood Urine Nitrate Urine Bilirubin Urine Urobilinogen Ur Leukocyte Esterase Urine RBC Urine WBC Ur Squamous Epith Cells Urine Bacteria Hyaline Casts Granular Casts Micro UA Comment Urine Culture Comments Hepatitis A IgM Ab Hep Bs Antigen Hep B Core IgM Ab Hep C IgG Ab 11/24/17 11/24/17 11/24/17 16:06 20:35 21:37 WBC RBC Hgb Hct MCV MCH MCHC RDW Plt Count MPV Neut % (Auto) Lymph % (Auto) Sawyer % (Auto) Eos % (Auto) Baso % (Auto) Neut # (Auto) Lymph # (Auto) Sawyer # (Auto) Eos # (Auto) Baso # (Auto) WBC Differential Differential Comment PT INR APTT Puncture Site Art line Patient Temperature 98.6 O2 Saturation 95 ABG pH 7.31 L ABG pCO2 53 H* ABG pO2 103 ABG HCO3 26 ABG O2 Content 16.4 ABG Base Excess 0.2 ABG Methemoglobin 0.8 Hemoglobin 12.2 Carboxyhemoglobin 0.8 O2 Delivery Device Ventilator Vent Setting Prvc/ac Inspired O2 100 Critical Value Yes Sodium Potassium Chloride Carbon Dioxide Anion Gap BUN Creatinine Estimated GFR POC Glucose 182 H 135 H Random Glucose Lactic Acid Calcium Prot Corrected Calcium Phosphorus Magnesium Total Bilirubin AST ALT Alkaline Phosphatase Total Protein Albumin Urine Color Urine Clarity Urine pH Ur Specific [place] Urine Protein Urine Glucose (UA) Urine Ketones Urine Occult Blood Urine Nitrate Urine Bilirubin Urine Urobilinogen Ur Leukocyte Esterase Urine RBC Urine WBC Ur Squamous Epith Cells Urine Bacteria Hyaline Casts Granular Casts Micro UA Comment Urine Culture Comments Hepatitis A IgM Ab Hep Bs Antigen Hep B Core IgM Ab Hep C IgG Ab 11/25/17 11/25/17 11/25/17 05:10 05:10 07:37 WBC 8.0 RBC 3.54 L Hgb 11.0 L Hct 32.4 L MCV 91.7 MCH 31.2 MCHC 34.0 RDW 13.8 Plt Count 158 MPV 10.2 Neut % (Auto) Lymph % (Auto) Sawyer % (Auto) Eos % (Auto) Baso % (Auto) Neut # (Auto) Lymph # (Auto) Sawyer # (Auto) Eos # (Auto) Baso # (Auto) WBC Differential Differential Comment PT INR APTT Puncture Site Patient Temperature O2 Saturation ABG pH ABG pCO2 ABG pO2 ABG HCO3 ABG O2 Content ABG Base Excess ABG Methemoglobin Hemoglobin Carboxyhemoglobin O2 Delivery Device Vent Setting Inspired O2 Critical Value Sodium 143 Potassium 5.8 H D Chloride 103 Carbon Dioxide 24.8 Anion Gap 15 BUN 113 H Creatinine 6.81 H Estimated GFR 8 L POC Glucose 148 H Random Glucose 137 H Lactic Acid Calcium 7.3 L* Prot Corrected Calcium 7.5 L Phosphorus Magnesium Total Bilirubin 2.1 H AST 88 H ALT 67 Alkaline Phosphatase 86 Total Protein 6.7 Albumin 3.1 L Urine Color Urine Clarity Urine pH Ur Specific [place] Urine Protein Urine Glucose (UA) Urine Ketones Urine Occult Blood Urine Nitrate Urine Bilirubin Urine Urobilinogen Ur Leukocyte Esterase Urine RBC Urine WBC Ur Squamous Epith Cells Urine Bacteria Hyaline Casts Granular Casts Micro UA Comment Urine Culture Comments Hepatitis A IgM Ab Hep Bs Antigen Hep B Core IgM Ab Hep C IgG Ab 11/25/17 11/25/17 11/25/17 08:40 10:55 10:55 WBC RBC Hgb Hct MCV MCH MCHC RDW Plt Count MPV Neut % (Auto) Lymph % (Auto) [place]yer % (Auto) Eos % (Auto) Baso % (Auto) Neut # (Auto) Lymph # (Auto) Sawyer # (Auto) Eos # (Auto) Baso # (Auto) WBC Differential Differential Comment PT 11.7 H INR 1.2 APTT 17.9 L Puncture Site Patient Temperature O2 Saturation ABG pH ABG pCO2 ABG pO2 ABG HCO3 ABG O2 Content ABG Base Excess ABG Methemoglobin Hemoglobin Carboxyhemoglobin O2 Delivery Device Vent Setting Inspired O2 Critical Value Sodium 147 H Potassium 4.9 D Chloride 103 Carbon Dioxide 22.1 Anion Gap 22 H BUN 116 H Creatinine 7.61 H Estimated GFR 7 L POC Glucose Random Glucose 222 H Lactic Acid Calcium 10.1 D Prot Corrected Calcium Phosphorus Magnesium 5.0 H Total Bilirubin 1.7 H AST 131 H ALT 111 H Alkaline Phosphatase 77 Total Protein 6.1 L D Albumin 2.7 L Urine Color Yellow Urine Clarity Cloudy H Urine pH 5.0 Ur Specific [place] 1.016 Urine Protein 30 H Urine Glucose (UA) Negative Urine Ketones Negative Urine Occult Blood Moderate H Urine Nitrate Negative Urine Bilirubin Negative Urine Urobilinogen Less than 2 Ur Leukocyte Esterase Trace H Urine RBC 41 H Urine WBC 11 H Ur Squamous Epith Cells 1 Urine Bacteria Rare H Hyaline Casts 3 Granular Casts 2 Micro UA Comment Cath-culture ind Urine Culture Comments Cath-cult indicated Hepatitis A IgM Ab Hep Bs Antigen Hep B Core IgM Ab Hep C IgG Ab 11/25/17 10:55 WBC RBC Hgb Hct MCV MCH MCHC RDW Plt Count MPV Neut % (Auto) Lymph % (Auto) Sawyer % (Auto) Eos % (Auto) Baso % (Auto) Neut # (Auto) Lymph # (Auto) [place]yer # (Auto) Eos # (Auto) Baso # (Auto) WBC Differential Differential Comment PT INR APTT Puncture Site Patient Temperature O2 Saturation ABG pH ABG pCO2 ABG pO2 ABG HCO3 ABG O2 Content ABG Base Excess ABG Methemoglobin Hemoglobin Carboxyhemoglobin O2 Delivery Device Vent Setting Inspired O2 Critical Value Sodium Potassium Chloride Carbon Dioxide Anion Gap BUN Creatinine Estimated GFR POC Glucose Random Glucose Lactic Acid 9.5 H* Calcium Prot Corrected Calcium Phosphorus Magnesium Total Bilirubin AST ALT Alkaline Phosphatase Total Protein Albumin Urine Color Urine Clarity Urine pH Ur Specific [place] Urine Protein Urine Glucose (UA) Urine Ketones Urine Occult Blood Urine Nitrate Urine Bilirubin Urine Urobilinogen Ur Leukocyte Esterase Urine RBC Urine WBC Ur Squamous Epith Cells Urine Bacteria Hyaline Casts Granular Casts Micro UA Comment Urine Culture Comments Hepatitis A IgM Ab Hep Bs Antigen Hep B Core IgM Ab Hep C IgG Ab Result Diagrams: 11/25/17 05:10 11/25/17 10:55 Microbiology: Microbiology 11/22/17 09:25 Urine Culture - Final Catheterized Urine No growth in 48 hours 11/22/17 08:00 Gram Stain - Final Sputum - Endotracheal Sputum Culture - Final No growth in 48 hours Imaging: Chest X-Ray 11/19/17 10:32 CONCLUSION: Fairly well compensated mild cardiomegaly Chest X-Ray 11/19/17 17:13 CONCLUSION: 1. Status post median sternotomy for bypass grafting procedure. 2. Endotracheal tube and nasogastric tube place. 3. Central line and left-sided chest tube with no pneumothorax. 4. Cardiomegaly with new perihilar and bibasilar opacities which most characteristic of mild pulmonary edema. Chest X-Ray 11/20/17 05:00 CONCLUSION: 1. Bilateral patchy airspace disease slightly worsened on current study. 2. Left-sided chest tube without pneumothorax. 3. Status post CABG. Chest X-Ray 11/21/17 00:00 CONCLUSION: 1. Stable tubes and lines. 2. Improving pulmonary edema pattern. 3. No pneumothorax. Abdomen/Bladder Ultrasound 11/22/17 00:00 CONCLUSION: 1. Kidneys unremarkable sonographically. 2. Other findings include trace free fluid around the liver and spleen with bilateral pleural effusions. Liver enlarged to 20 cm. Gallbladder wall thickened with some pericholecystic fluid. Chest X-Ray 11/22/17 00:00 CONCLUSION: Satisfactory right neck central catheter placement. No complication. Chest X-Ray 11/22/17 06:00 CONCLUSION: Diffuse consolidation likely from edema. Removal of the left chest tube without evidence of a pneumothorax. Chest X-Ray 11/22/17 06:50 CONCLUSION: 1. Interval intubation with endotracheal tube in appropriate position. 2. Persistent patchy airspace opacities bilaterally, likely reflecting pulmonary edema. Chest X-Ray 11/23/17 06:00 CONCLUSION: Persistent central increased density likely related to edema. This appears to be improving. Chest X-Ray 11/24/17 00:00 CONCLUSION: Persistent increased density at the mid and lower lungs likely related to underlying process such as edema. This appears stable. Chest X-Ray 11/24/17 19:04 CONCLUSION: Increasing severity pulmonary edema. Chest X-Ray 11/25/17 05:00 CONCLUSION: Radiographic pattern suggesting pulmonary edema with some improvement from the prior study. Chest X-Ray 11/25/17 11:04 CONCLUSION: Stable chest x-ray with bilateral interstitial opacities. As described previously this could represent pulmonary edema in the appropriate clinical setting. Cardiac silhouette size remains at the upper limits for normal. Procedures: 11/22: Endotracheal intubation. 11/22: Right radial arterial line placement. 11/22: Right IJ Vas-Cath placement. 11/24: Endotracheal intubation. . Other: Patient has had multiple episodes of VT/VF arrest requiring CODE BLUE resuscitation. Patient/Family Conference Present at Family Conference: Spoke with son, Torsten, patient's sister, nephew and Torsten's fianc in room 444 during CODE BLUE. They provide the majority of the history. Reviewed clinical status to include coronary artery disease, status post CABG, worsening renal failure, now requiring dialysis. They state that prior to the patient's reintubation yesterday, he was aware that he would likely require dialysis for the remainder of his life and would likely require oxygen, which they state the patient enthusiastically agreed with. They state that his goals would be aggressive and the family will continue to advocate for recurrent resuscitations in spite of poor prognosis. . Family Conference Location: Consult Room Issues Discussed: * Palliative care role, purpose, approach * Additional medical, psychosocial, and spiritual history * Patients general health, functional status, and cognitive changes in the months leading up to the current hospitalization * Patient/family understanding of the current medical problems * Patient/family understanding of prognosis * Patients goals of care as best understood from advance directives and/or conversations and/or values * Current medical treatment options and benefits/burdens of those options * Likely scenarios comparing ongoing aggressive care with a transition to comfort measures only * Questions answered to the best of my ability * Palliative care contact information provided Assessment and Plan Pertinent Non-Medical Issues: Psychosocial: He was born in [place] and 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 He moved to [place] permanently after many years of visiting about 7 years ago. He was previously and had 2 children, Torsten and his sister Thalia, but has been for many years. Spiritual: Judaism. Legal: No advanced directives completed. Ethical issues impacting care: None noted. . Important Contacts: Son: Torsten Johnson Daughter: Thalia Johnson . Prognosis: His prognosis is poor. At this time his cardiac status has declined to require maximum support to include the use of an intra-aortic balloon pump, amiodarone and lidocaine to suppress ventricular arrhythmias, hemodialysis, mechanical ventilation and has sustained CODE BLUE arrest approximately 11 times today. Ejection fraction is in the 25% range and even after surgical revascularization he has myocardial instability. At this time poor cardiac status and output has impacted both liver and kidneys. 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 He is at elevated risk for continued complications and decline. . Plan: PLAN: Legal decision maker: At this time the patient is not capacitated to make decisions as he is intubated and sedated. No healthcare surrogate or power of electrician helper powerhouse form has been made available so per [place] statutes, as he is , decision making will fall to his 2 adult children, Torsten and Thalia. Torsten is at bedside and in frequent contact with his sister whom he states also maintains aggressive goals. Goals: Aggressive CODE STATUS: FULL CODE SYMPTOMS: * Chest pain: At this time he has undergone cardiac revascularization but continues to have recurrent VT/VF arrests requiring CPR. He is at elevated risk for continued chest pain secondary to recent surgery, mediastinal instability with intact wires, recurrent defibrillatory shocks and recurrent CPR compressions. At this time he is intubated and sedated. * Dyspnea: He has a very heavy smoking history as well as environmental exposure to autobody pain and chemicals. He has failed extubation twice, requiring reintubation within 24 hours both times. He is currently requiring 100% FiO2 via ventilator on bilevel/APRV mode with inspiratory pressure settings of 26 cm H2O. Critical care managing ventilator. SUMMARY This is a 57 year old male who presented with a STEMI alert, failed PCI, underwent emergent CABG and continues to have VT/VF recurrent arrests. It is not felt that he is a candidate for recurrent PCI or surgical reexploration due to significant instability. An IABP has been placed for cardiovascular support. He remains on maximal suppressive therapy with amiodarone and lidocaine for ventricular instability and arrhythmias. While family goals remain very aggressive, the patient is showing multisystem organ compromise, now on hemodialysis with increasing transaminases requiring maximum support for both cardiac and pulmonary function. He is at extremely high risk for continued complication and decline. He would be hospice appropriate if goals were consistent. Palliative care will continue to follow the patient during hospital course as condition evolves, to assist patient/decision-maker with understanding of their medical conditions, weighing benefits/burdens of treatment options, for clarification of goals of treatment. Additionally will assist with any symptoms of palliative concern. . Appreciation Thank you for the opportunity to participate in the care of Lamonte Johnson. Attestation Attestation: To help prompt me to consider important information that might be impacting today's encounter and assessment, information from prior notes written by myself or my colleagues may have been "brought forward" into today's note. My signature on this note, however, is an attestation that I personally performed the exam, history, and/or decision-making noted today, and, unless otherwise indicated, the interactions with patient, family, and staff as well as the review of records all occurred today. I also attest that the listed assessment and stated plan reflect my best clinical judgment today based on the combination of historical information, prior notes, and today's exam/ interactions. When time spent is documented, it refers only to time spent today by the signer, or if indicated, combined time spent today by collaborating physician/nurse practitioner. .
[2017-11-25 16:46] LABS: Alanine Aminotransferase 265 U/L (12-78); Albumin 2.6 g/dL (3.4-5.0); Alkaline Phosphatase 82 U/L (45-117); Anion Gap 18 meq/L (5-15); Aspartate Aminotransferase 348 U/L (15-37); Blood Urea Nitrogen 104 mg/dL (7-18); Carbon Dioxide 24.3 meq/L (21.0-32.0); Chloride 104 meq/L (98-107); Glomerular Filtration Rate 9 mL/min (>89); Glucose,Random 262 mg/dL (74-106); Magnesium 3.6 mg/dL (1.5-2.5); Potassium 5.8 meq/L (3.5-5.1); Sodium 146 meq/L (136-145); Total Protein 5.8 g/dL (6.4-8.2)
--- NOTE | 2017-11-25 16:55 | XR ---
EXAM DATE: 11/25/2017 3:25 PM EDT AGE/SEX: 57 years / Male INDICATIONS: Post ballon pump placement. CLINICAL DATA: This is the patient's subsequent encounter. Patient reports that signs and symptoms h ave been present for 1 week and indicates a pain score of Nonresponsive. MEDICAL/SURGICAL HISTORY: None. CABG. COMPARISON: [facility], CHEST 1V SINGLE AP, 11/25/2017. . FINDINGS: Endotracheal tube, nasogastric tube, left subclavian central line and right neck central catheter are stable. There is persistent cardiac enlargement and vascular congestion with symmetric central inter stitial and alveolar edema. Likely slight improvement in lung volumes from previous exam. A focal rad iodense marker overlying the aortic knob region is presumably the marker associated with aortic ballo on pump. CONCLUSION: Slight improvement in aeration. Potential balloon pump tip marker overlying the aortic knob region Electronically signed by: Alessandro Shen MD 11/25/2017 4:53 PM EDT
[2017-11-25] MEDS ORDERED: Insulin Regular (For Infusion) 100 UNIT in Sodium Chlor 0.9% Inj 99 ML IV.CONT PRN (17:08)
--- NOTE | 2017-11-25 17:13 | P.PCN ---
Date of procedure: 11/25/17 Procedure: Procedure: Arterial Line Placement Diagnosis: Circulatory shock, cardiac arrest, hypoxic respiratory failure Indications: BP monitoring, frequent blood gases Description of the Procedure: The right femoral area was prepped and draped sterilely. 1% lidocaine was used for local anesthesia. The femoral artery was visualized using ultrasound and a needle was advanced into the artery. The catheter was advanced into the artery using a modified Seldinger technique. The catheter was sutured to the skin and a sterile dressing was applied. The catheter was connected to a pressure transducer and an arterial waveform was noted. There were no immediate complications noted. There was minimal EBL. I personally performed the procedure.
[2017-11-25] MEDS ORDERED: Calcium Gluconate Inj 1 GM in Dextrose 5% in Water Inj 100 ML IV.SIG ONE ×2 (17:15)
[2017-11-25] MEDS ORDERED: Lidocaine 2% 100 MG/5 ML Syringe ONE (18:04)
[2017-11-25] MEDS ORDERED: EPINEPHrine (1:1000) Inj 2 MG in Sodium Chlor 0.9% Inj 248 ML IV.CONT PRN (18:11)
[2017-11-25 18:34] LABS: Baso # (Auto) 0.1 th/mm3 (0.0-0.2); Baso % (Auto) 0.3 % (0.0-2.0); Hematocrit 34.9 % (39.0-51.0); Hemoglobin 11.4 gm/dL (13.0-17.0); Lymph # (Auto) 0.3 th/mm3 (1.0-4.8); Lymph % (Auto) 1.6 % (9.0-44.0); Mean Corpuscular HGB Conc 32.6 % (32.0-36.0); Mean Corpuscular Hemoglobin 30.6 pg (27.0-34.0); Mean Corpuscular Volume 94.1 fL (80.0-100.0); Mean Platelet Volume 10.4 fL (7.0-11.0); Mono # (Auto) 1.2 th/mm3 (0.0-0.9); Mono % (Auto) 5.9 % (0.0-8.0); Neut # (Auto) 18.6 th/mm3 (1.8-7.7); Neut % (Auto) 92.2 % (16.0-70.0); Platelet Count 216 th/mm3 (150-450); Red Blood Count 3.71 mil/mm3 (4.50-5.90); Red Cell Distribution Width 13.8 % (11.6-17.2); White Blood Count 20.2 th/mm3 (4.0-11.0)
[2017-11-25] MEDS ORDERED: Lidocaine/D5W 2000 mg/500 mL 2,000 MG/500 ML BAG IV.CONT SCH (19:00)
--- NOTE | 2017-11-25 19:06 | P.DN ---
Pronouncement Note - Date and Time of Date of : 11/25/17 Time of : 18:51 - PCOD Preliminary cause of : Cardiac arrest (Incessant VT) - Additional Data Confirmation of : no pulse, no respirations, no heart sounds, pupils fixed and dilated Family: at bedside Attending/PCP notified?: Yes Attending physician: MD Jennifer Ball MD Was code activated?: Yes
[2017-11-25 19:16] LABS: Lymphocytes 1 % (9-44); Metamyelocytes 2 % (0-1); Monocytes 3 % (0-8)
[2017-11-25 19:17] LABS: Dohle Bodies Present; Platelet Estimate Normal (Normal); Platelet Morphology Normal (Normal); Stomatocytes 2+
--- NOTE | 2017-11-25 19:21 | P.PNCA ---
Subjective Interval history: Called by Dr. Rojas to evaluate the patient for consideration of Impella placement due to incessant VT. Patient has been shocked numerous times (probably in the 100s) currently on Amiodarone/Lidocaine/Epi drips IABP placed at the bedside by Dr. Rojas In between shocks, he stabilizes and is able to follow commands and shake his head to questions Physical Exam Vital signs: Vital Signs 11/24/17 20:00 11/24/17 20:43 11/24/17 22:09 Temperature Pulse Rate 67 Respiratory Rate 20 Blood Pressure Pulse Oximetry 92 L 95 99 11/24/17 23:00 11/25/17 00:00 11/25/17 00:24 Temperature 98.4 F Pulse Rate 58 L 58 L Respiratory Rate 23 22 Blood Pressure 105/54 L 105/54 L Pulse Oximetry 99 11/25/17 00:28 11/25/17 03:00 11/25/17 03:44 Temperature 99.4 F Pulse Rate 54 L 55 L Respiratory Rate 22 22 Blood Pressure 100/51 L Pulse Oximetry 98 97 11/25/17 05:34 11/25/17 07:00 11/25/17 07:29 Temperature 101.2 F H Pulse Rate 56 L 96 H Respiratory Rate 22 22 Blood Pressure 96/50 L Pulse Oximetry 97 97 11/25/17 08:00 11/25/17 11:00 11/25/17 11:30 Temperature Pulse Rate 86 Respiratory Rate Blood Pressure Pulse Oximetry 96 82 L 11/25/17 12:00 11/25/17 13:10 11/25/17 14:45 Temperature 98.6 F 98.6 F Pulse Rate Respiratory Rate 29 H Blood Pressure Pulse Oximetry 90 L 11/25/17 16:40 Temperature 98.6 F Pulse Rate Respiratory Rate Blood Pressure Pulse Oximetry Intake & Output 11/25/17 11/25/17 11/26/17 06:59 18:59 06:59 Intake Total 760 / 760 48 / 48 Output Total 200 / 200 Balance 560 / 560 48 / 48 Weight 106 kg Intake: IV 640 / 640 48 / 48 DOBUTamine 250 MG/250 ML Premx 0 / 0 250 mg In 250 ml @ 2.5 MCG/KG/ MIN 15.9 mls/hr IV.CONT . [id number] [facility] Rx#:[id number] Precedex Inj 200 MCG In NS Inj 150 / 150 48 / 48 48 ML @ 0.2 MCG/KG/HR 5.5 mls/ hr IV.CONT TITRATE PRN Rx#: [id number] Diprivan 1000 mg/100 ml Inj 1, 400 / 400 000 mg In 100 ml @ 5 MCG/KG/MIN 3.39 mls/hr IV.CONT TITRATE PRN Rx#:[id number] fentaNYL 10 mcg/mL Premix Drip 90 / 90 2,500 mcg In 250 ml @ 50 MCG/HR 5 mls/hr IV.SIG TITRATE PRN Rx #:[id number] Tube Irrigant 120 / 120 Output: Urine Amount (Catheter) 200 / 200 Indwelling Urethral Catheter 200 / 200 Other: # Bowel Movements 0 Narrative: GENERAL: Intubated, able to answer questions when asked SKIN: Warm and dry. HEAD: Atraumatic. Normocephalic. EYES: Pupils equal and round. No scleral icterus. No injection or drainage. ENT: No nasal bleeding or discharge. Mucous membranes pink and moist. NECK: Trachea midline. No JVD. CARDIOVASCULAR: Regular rate and rhythm. Chest wall dehisced RESPIRATORY: No accessory muscle use. Decreased breath sounds bilaterally GASTROINTESTINAL: Abdomen soft, non-tender, nondistended. Hepatic and splenic margins not palpable. MUSCULOSKELETAL: Extremities without clubbing, cyanosis, or edema. No obvious deformities. NEUROLOGICAL: Awake and alert while intubated, able to follow simple commands, shakes his head to answer questions - Urinary Catheter Management Indwelling Temp Sensing Catheter Cath placed during this visit: yes, but has since been removed by the nurse Reason for continuing: Decision to DC catheter Insertion date: 11/19/17 Insertion time: 13:14 Removal date: 11/21/17 Removal time: 06:00 Indwelling Urethral Catheter Cath placed during this visit: yes Reason for continuing: Hourly intake/output Insertion date: 11/22/17 Insertion time: 08:30 Assessment and Plan - Assessment (1) ST elevation myocardial infarction (STEMI) Code(s): I21.3 - ST elevation (STEMI) myocardial infarction of unspecified site Status: Acute Plan: Multiple VF arrests through the day today. EKG shows no definite acute ST/T changes. ST elevation seen on admission improved. No disease seen on initial cath which would be amenable to PCI. If problem is graft failure he is not good candidate for re-operation at this time. Rec continued treatment of the ventricular tachyarrhythmias, continue IABP support. (2) CAD (coronary artery disease) Code(s): I25.10 - Atherosclerotic heart disease of [place] coronary artery without angina pectoris Status: Acute Plan: Status post anterior STEMI with unsuccessful PCI on occluded proximal LAD, s/p CABG. Multiple VF arrests through the day today. EKG shows no definite acute ST/T changes. ST elevation seen on admission improved. No disease seen on initial cath which would be amenable to PCI. If problem is graft failure he is not good candidate for re-operation at this time. Rec continued treatment of the ventricular tachyarrhythmias, continue IABP support. (3) Ischemic cardiomyopathy Code(s): I25.5 - Ischemic cardiomyopathy Status: Acute Plan: EF apparently around 25% by echo this morning though after code. Continue supportive care. (4) Ventricular fibrillation Code(s): I49.01 - Ventricular fibrillation Status: Acute Plan: Multiple VF arrests through the day today. EKG shows no definite acute ST/T changes. ST elevation seen on admission improved. No disease seen on initial cath which would be amenable to PCI. If problem is graft failure he is not good candidate for re-operation at this time. Electrolytes not markedly abnormal. Continue IV Amiodarone, lidocaine. - Plan Called to evaluate for Impella placement Ultimately multiple drips/IV meds were changed to try to stabilize the patient Discussed with the family at the bedside multiple times about critical condition Team was in place, but patient was not stella enough to be moved from the room The amount of shocks increased to the point where it was happening a few times a minute and times where he would need 3-5 shocks to come out of each episode Discussed with the family, felt that he was too unstable to move from the room, and no guarantee that Impella would help His son, along with the rest of the family, decided to make him comfort care/ DNR at 18:46 At 18:51, he was pronounced. Family was made aware at the bedside Dr. Rojas, attending on the case, was at the bedside > 90 minutes of critical care time in managing the patient continuously, changing meds, coding the patient, including discussing with critical care/CT surgery, the family, and dentures lab technician team (1) ST elevation myocardial infarction (STEMI) Qualifiers: Involved coronary artery: LAD coronary artery Qualified Code(s): I21.02 - ST elevation (STEMI) myocardial infarction involving left anterior descending coronary artery (2) CAD (coronary artery disease) Qualifiers: Coronary Disease-Associated Artery/Lesion type: [place] artery [place] vs. transplanted heart: [place] heart Associated angina: with unstable angina Qualified Code(s): I25.110 - Atherosclerotic heart disease of [place] coronary artery with unstable angina pectoris
[2017-11-25] MEDS ORDERED: Calcium Chloride Inj 0.34 GM in Sodium Chlor 0.9% Inj 100 ML IV.SIG ONE (20:00)
[2017-11-25] MEDS ORDERED: Sodium Bicarbonate 8.4% Inj 50 MEQ/50 ML Syringe IV.CONT ONE (23:34)
[2017-11-25] MEDS ORDERED: Lidocaine/D5W 2000 mg/500 mL 2,000 MG/500 ML BAG IV.SIG ONE (23:34)
[2017-11-25] MEDS ORDERED: DOPamine 800 MG/500 ML Premix 800 MG/500 ML PLAST..BAG IV.CONT ONE (23:34)
[2017-11-25] MEDS ORDERED: Lidocaine 2% 100 MG/5 ML Syringe IV.PUSH ONE ×2 (23:34)
[2017-11-25] MEDS ORDERED: Adenosine Inj 6 MG/2 ML Syringe IV.PUSH ONE (23:34)
[2017-11-25] MEDS ORDERED: Atropine Inj 1 MG/10 ML Syringe IV.PUSH ONE (23:34)
[2017-11-25] MEDS ORDERED: MethylPREDNISolone Sod Succinate Inj 1,000 MG/16 ML Vial IV.SIG ONE (23:34)
[2017-11-25] MEDS ORDERED: Magnesium Sulfate Inj 40 MEQ/10 ML Vial IV.SIG ONE ×2 (23:34)
--- NOTE | 2017-11-26 19:59 | ECG ---
Date Performed: 11/25/2017 Time Performed: 11:19:54 PTAGE: 57 years EKG: Sinus rhythm . Right axis deviation ANTEROLATERAL INFARCT - POSSIBLY ACUTE Abnormal ECG PREVIOUS TRACING l:11/20/2017 @03.39 Since the previous tracing, no significant change noted DOCTOR: Cassy Green Interpretating Date/Time 11/26/2017 19:56:38
== END 2017-11-25 23:35 | disposition expired ==
LOC: PHED 10:09 → HCIS 11:00 → HCVI 18:02
PROVIDERS: ADMIT Internal Medicine Cardiovascular Disease; ATTEND Internal Medicine Cardiovascular Disease